=== PATIENT | female | born 1970 | race African-American/Black ===

== ENCOUNTER 2018-04-23 14:16 | Inpatient (IN) | payer OTHER ==
[~2018-04-23] VITALS: Ht 162.6 cm; Wt 52.2 kg
[~2018-04-23 14:16] MED LIST: IBUPROFEN600 MG ORAL; KEFLEX500 MG ORAL; NORCO 5-325 TA1 EACH ORAL; PREDNISONE10 MG ORAL
[2018-04-23 14:20] VITALS: BP 146/73
--- NOTE | 2018-04-23 14:20 | NUR ---
ED Nurse Note: PT WALKED IN TO ER TODAY FROM HOME. AOX4. PT C/O NAUSEA WITH MULTIPLE EPISODES OF VOMITING AND DIARRHEA X YESTERDAY. PT STATES VOMIT WAS YELLOW IN COLOR AND DIARRHEA WAS BLACK IN COLOR. PT ALSO C/O LOWER ABDOMINAL PAIN, 10/10 X YESTERDAY. PT TACHYCARDIC AT BEDSIDE, HR: 144, RR21@97% O2 SAT ON RA, TEMP 99.2. DR. PIÑA AT BEDSIDE FOR EVAL.
--- NOTE | 2018-04-23 14:28 | Emergency Room Report ---
History of Present Illness General Chief Complaint: Nausea, Vomiting, and Diarrhea Source: Patient, Medical Record Present Illness HPI 47-year-old female with a history of unspecified immunology disorder, she is on prednisone 5 mg a grams a day, presenting with generalized weakness, nausea vomiting. Says that she had nausea more than 5 episodes yesterday yellow in color. She also had a modified episodes of black diarrhea. Also complaining of generalized lower abdominal pain, crampy and sharp. Says that she does not feel well and she has not been able to eat for the last couple days. Says that she is a chronic alcohol user, she's not had an endoscopy or colonoscopy in the past. She is noted to have a runny nose. Denies any cough. No chest pain or shortness of breath. 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 Review of Systems All Other Systems: negative except mentioned in HPI Physical Exam Vital Signs Date Time Temp Pulse Resp B/P (MAP) Pulse Ox O2 Delivery O2 Flow Rate FiO2 04/23/18 14:19 99.1 144 21 149/76 97 Room Air Sp02 EP Interpretation: reviewed, normal General Appearance: alert, moderate distress Head: normocephalic, atraumatic Eyes: bilateral eye normal inspection, bilateral eye PERRL, bilateral eye EOMI ENT: no angioedema, normal voice, nasal congestion Neck: normal inspection, full range of motion, supple Respiratory: normal inspection, lungs clear, normal breath sounds, no respiratory distress, no retraction, no wheezing, speaking full sentences, chest symmetrical Cardiovascular #1: no edema, tachycardia Cardiovascular #2: 2+ radial (R), 2+ radial (L) Gastrointestinal: other - Generalized abdominal tenderness in the bilateral lower quadrants without guarding or rebound Rectal: black stool - GUIAC POSITIVE Musculoskeletal: normal inspection, back normal, normal range of motion, non- tender Neurologic: normal inspection, alert, oriented x3, responsive, motor strength/ tone normal, sensory intact, normal gait, speech normal Psychiatric: normal inspection, judgement/insight normal, memory normal Skin: normal inspection, normal color, no rash, warm/dry, well hydrated, normal turgor Procedures Critical Care Time Critical Care Time 40 minutes of critical care time performed in order to assess and manage the high probability of imminent of lifethreatening deterioration secondary to GI function excludes all billable procedures Medical Decision Making Diagnostic Impression: Primary Impression: GI bleed ER Course 47-year-old female with generalized weakness, nausea vomiting yesterday, black diarrhea Differential Diagnosis: Gastritis, gastroenteritis, GI bleed Plan: Basic labs, type and screen, ua, ekg IVF CT abdopelvis ER course: Patient given 2 L fluid put on octreotide/protonix Disposition: admit to SDU dw Dr Farah and Dr Cedeño Please note that this Emergency Department Report was dictated using [employer] mobile designer technology software, occasionally this can lead to erroneous entry secondary to interpretation by the dictation equipment EKG Diagnostic Results EP Interpretation: Yes Rate: Tachycardic Rhythm: NSR ST Segments: No acute changes ASA given to patient: No Rhythm Strip EP Interpretation: Yes Rate:130 Rhythm: NSR, no PVCs, no ectopy Chest X-ray CXR: Ordered: Yes 1 view Indication: Chest pain EP interpretation: Yes Interpretation: No consolidation, no effusion, no PTX, no acute cardiopulmonary disease Impression: No acute disease Electronically signed by Evelina Callahan MD Laboratory Tests Test 04/23/18 14:19 04/23/18 15:20 White Blood Count 15.9 K/UL (4.8-10.8) H Red Blood Count 3.02 M/UL (4.20-5.40) L Hemoglobin 9.8 G/DL (12.0-16.0) L Hematocrit 28.5 % (37.0-47.0) L Mean Corpuscular Volume 94 FL (80-99) Mean Corpuscular Hemoglobin 32.5 PG (27.0-31.0) H Mean Corpuscular Hemoglobin Concent 34.4 G/DL (32.0-36.0) Red Cell Distribution Width 11.0 % (11.6-14.8) L Platelet Count 322 K/UL (150-450) Mean Platelet Volume 7.3 FL (6.5-10.1) Neutrophils (%) (Auto) 59.1 % (45.0-75.0) Lymphocytes (%) (Auto) 32.8 % (20.0-45.0) Monocytes (%) (Auto) 6.8 % (1.0-10.0) Eosinophils (%) (Auto) 0.2 % (0.0-3.0) Basophils (%) (Auto) 1.0 % (0.0-2.0) Prothrombin Time 9.9 SEC (9.30-11.50) Prothrombin Time INR 0.9 (0.9-1.1) PTT 23 SEC (23-33) Urine Color Yellow Urine Appearance Slightly cloudy Urine pH 6 (4.5-8.0) Urine Specific [place] 1.005 (1.005-1.035) Urine Protein 1+ (NEGATIVE) H Urine Glucose (UA) Negative (NEGATIVE) Urine Ketones Negative (NEGATIVE) Urine Blood 5+ (NEGATIVE) H Urine Nitrite Negative (NEGATIVE) Urine Bilirubin Negative (NEGATIVE) Urine Urobilinogen Normal MG/DL (0.0-1.0) Urine Leukocyte Esterase 3+ (NEGATIVE) H Urine RBC 2-4 /HPF (0 - 2) H Urine WBC 2-4 /HPF (0 - 2) Urine Squamous Epithelial Cells Few /LPF (NONE/OCC) Urine Bacteria Few /HPF (NONE) Urine HCG, Qualitative Negative (NEGATIVE) Sodium Level 140 MMOL/L (136-145) Potassium Level 3.3 MMOL/L (3.5-5.1) L Chloride Level 105 MMOL/L (98-107) Carbon Dioxide Level 23 MMOL/L (21-32) Anion Gap 12 mmol/L (5-15) Blood Urea Nitrogen 30 mg/dL (7-18) H Creatinine 0.7 MG/DL (0.55-1.30) Estimate Glomerular Filtration Rate > 60 mL/min (>60) Glucose Level 140 MG/DL (74-106) H Calcium Level 9.1 MG/DL (8.5-10.1) Total Bilirubin 0.3 MG/DL (0.2-1.0) Aspartate Amino Transferase (AST) 21 U/L (15-37) Alanine Aminotransferase (ALT) 31 U/L (12-78) Alkaline Phosphatase 99 U/L (46-116) Total Creatine Kinase 77 U/L (26-308) Creatine Kinase MB 3.1 NG/ML (0.0-3.6) Creatine Kinase MB Relative Index 4.0 Troponin I 0.015 ng/mL (0.000-0.056) Total Protein 7.2 G/DL (6.4-8.2) Albumin 3.6 G/DL (3.4-5.0) Globulin 3.6 g/dL Albumin/Globulin Ratio 1.0 (1.0-2.7) Human Chorionic Gonadotropin, Quant 8 mIU/mL (1-6) H Urine Opiates Screen Negative (NEGATIVE) Urine Barbiturates Screen Negative (NEGATIVE) Phencyclidine (PCP) Screen Negative (NEGATIVE) Urine Amphetamines Screen Negative (NEGATIVE) Urine Benzodiazepines Screen Negative (NEGATIVE) Urine Cocaine Screen Negative (NEGATIVE) Urine Marijuana (THC) Screen Positive (NEGATIVE) H Serum Alcohol < 3 mg/dL Lactic Acid Level 1.00 mmol/L (0.4-2.0) Microbiology Date/Time Source Procedure Growth Status 04/23/18 16:00 Nasal Nares Influenza Types A,B Antigen (NOMAN) - Final Complete CT/MRI/US Diagnostic Results CT/MRI/US Diagnostic Results : Imaging Test Ordered: CT ABD PELVIS Impression Fatty liver. Normal appendix. Probable tiny cyst in the upper pole left kidney. Atherosclerotic disease. Uterine fibroid Last Vital Signs Date Time Temp Pulse Resp B/P (MAP) Pulse Ox O2 Delivery O2 Flow Rate FiO2 04/23/18 14:19 99.1 144 21 149/76 97 Room Air Evelina Callahan M.D. Apr 23, 2018 14:28
[2018-04-23] MEDS ORDERED: Isovue-300 100ml vial INJ PRN (14:30)
[2018-04-23 14:46] LABS: BILIRUBIN, URINE NEGATIVE (NEGATIVE); GLUCOSE, URINE (UA) NEGATIVE (NEGATIVE); KETONES,URINE NEGATIVE (NEGATIVE); LEUKOCYTE ESTERASE ,URINE 3+ (NEGATIVE); NITRITE,URINE NEGATIVE (NEGATIVE); PH,URINE 6 (4.5-8.0); PROTEIN,URINE 1+ (NEGATIVE); UROBILINOGEN,URINE NORMAL MG/DL (0.0-1.0)
[2018-04-23 14:47] LABS: EOSINOPHILS % (AUTO) 0.2 % (0.0-3.0); HEMATOCRIT 28.5 % (37.0-47.0); HEMOGLOBIN 9.8 G/DL (12.0-16.0); LYMPHOCYTES % (AUTO) 32.8 % (20.0-45.0); MEAN CORPUSCULAR VOLUME 94 FL (80-99); MONOCYTES % (AUTO) 6.8 % (1.0-10.0); NEUTROPHILS % (AUTO) 59.1 % (45.0-75.0); PLATELET COUNT 322 K/UL (150-450); RED BLOOD COUNT 3.02 M/UL (4.20-5.40); WHITE BLOOD COUNT 15.9 K/UL (4.8-10.8)
[2018-04-23 14:48] LABS: APPEARANCE,URINE SLIGHTLY CLOUDY; COLOR,URINE YELLOW
[2018-04-23] MEDS ORDERED: NORCO 10-325 T1 EACH ORAL (14:50)
[2018-04-23] MEDS ORDERED: IBUPROFEN600 MG ORAL (14:51)
[2018-04-23 14:57] LABS: INR 0.9 (0.9-1.1)
[2018-04-23 14:58] LABS: ANION GAP 12 mmol/L (5-15); BLOOD UREA NITROGEN 30 mg/dL (7-18); CALCIUM 9.1 MG/DL (8.5-10.1); CARBON DIOXIDE 23 MMOL/L (21-32); CHLORIDE 105 MMOL/L (98-107); CREATININE 0.7 MG/DL (0.55-1.30); POTASSIUM 3.3 MMOL/L (3.5-5.1); SODIUM 140 MMOL/L (136-145)
--- NOTE | 2018-04-23 15:06 | NUR ---
ED Nurse Note: XRAY AT BEDSIDE.
[2018-04-23 15:10] VITALS: BP 149/76
[2018-04-23 15:11] LABS: ALANINE AMINOTRANSFERASE 31 U/L (12-78); ALBUMIN 3.6 G/DL (3.4-5.0); ALKALINE PHOSPHATASE 99 U/L (46-116); ASPARTATE AMINO TRANSFERASE 21 U/L (15-37); BILIRUBIN,TOTAL 0.3 MG/DL (0.2-1.0); CKMB 3.1 NG/ML (0.0-3.6); CREATINE KINASE 77 U/L (26-308)
--- NOTE | 2018-04-23 15:21 | NUR ---
ED Nurse Note: PER LAB, DID NOT RECEIVE LACTIC. LACTIC ACID REDRAWN AND RESENT.
--- NOTE | 2018-04-23 15:54 | Diagnostic Imaging Report ---
Indication: Chest pain Comparison: None A single view chest radiograph was obtained. Findings: Cardiomediastinal appearance is within normal limits for age. The lungs are clear. Pulmonary vascularity is appropriate. The diaphragmatic contour is smooth and costophrenic angles are sharp. No pleural effusions are identified. The bones are osteopenic. Impression: No acute findings
--- NOTE | 2018-04-23 16:14 | NUR ---
ED Nurse Note: PT TO CT VIA ZACH.
[2018-04-23] MEDS ORDERED: Octreotide Acetate 500 MCG in Sodium Chloride 500ML 499 ML IV SCH (16:15)
[2018-04-23] MEDS ORDERED: Pantoprazole Inj IVP ONE (16:15)
--- NOTE | 2018-04-23 16:40 | NUR ---
ED Nurse Note: PT BACK FROM CT VIA ZACH.
--- NOTE | 2018-04-23 17:09 | Diagnostic Imaging Report ---
Indication: Abdominal pain Technique: Continuous helical transaxial imaging of the abdomen and pelvis was obtained from the lung bases to the pubic symphysis during intravenous contrast administration. Coronal 2-D reformats were also obtained. Study obtained in a Siemens sensation [address] Automatic Exposure Control was utilized. Total Dose length Product (DLP): 492.[address] Dose Index Volume (CTDIvol): 10.35 mGy Comparison: None Findings: The lung bases are clear. The liver is hypodense consistent with fatty infiltration. No hydronephrosis seen. There is a tiny cyst likely in the upper pole left kidney. Gallbladder is unremarkable. The spleen and pancreas are unremarkable. Aortoiliac calcifications are present. The appendix is normal. There is a small mass in the uterine fundus consistent with a fibroid. The urinary bladder is unremarkable. No significant free fluid identified. No evidence of bowel obstruction. IMPRESSION: Fatty liver. Normal appendix. Probable tiny cyst in the upper pole left kidney. Atherosclerotic disease. Uterine fibroid The CT scanner at [facility] is accredited by the [place] [employer] and the scans are performed using dose optimization techniques as appropriate to a performed exam including Automatic Exposure control.
--- NOTE | 2018-04-23 17:13 | NUR ---
ED Nurse Note: MARCELLE CALLED FOR PT TRANSFER. REPORT GIVEN TO ADRIEL RANGEL. PT TAKEN UP TO MARCELLE ON MARKET MASTER RUNNING IV MEDS WITH ALL BELONGINGS ACCOMPANIED BY PRIMARY RN AND EMT.
[2018-04-23 17:45] VITALS: BP 143/81
--- NOTE | 2018-04-23 17:45 | NUR ---
NURSE NOTES: Received patient from ADRIEL Johnson from ER. Patient came in for GI Bleed. Patient in bed, awake, and verbally responsive. quality assurance monitor body was in placed. On room air. No SOB. Respirations are even and unlaboured. Denies any pain. IV sites on left AC 20G running Sandostatin 500mg and right AC 20 G saline lock. Bed in lowest position with side rails up. Will continue to follow plan of care.
--- NOTE | 2018-04-23 18:45 | NUR ---
NURSE NOTES: Left a message to Dr. Farah to receive admission orders from him. Awaiting for call back.
[2018-04-23] MEDS ORDERED: Acetaminophen 500mg (ES) tab ORAL PRN ×2 (19:00)
--- NOTE | 2018-04-23 19:00 | NUR ---
NURSE NOTES: Dr. Farah called back and carried out orders.
--- NOTE | 2018-04-23 19:20 | NUR ---
NURSE NOTES: Left a message to Dr. Farah regarding about Potassium 3.3. Awaiting for call back. Will endorse to the PM nurse.
--- NOTE | 2018-04-23 19:25 | NUR ---
HAND-OFF: Report given to ADRIEL Aguero. Patient stable and in no apparent distress.
--- NOTE | 2018-04-23 19:26 | NUR ---
NURSE NOTES: Bedside report received patient from ADRIEL Fairchild. Patient came from home in for GI Bleed. AOx4, resting in bed, breathing unlabored. termite control servicer showing ST. Room air; sating well. Denies pain. IV sites on left AC 20G running Sandostatin 500mg; asymptomatic. RAC 20 saline lock. Bed in lowest position with side rails up. Will continue to follow plan of care.
[2018-04-23 20:00] VITALS: BP 128/76
--- NOTE | 2018-04-23 20:06 | NUR ---
NURSE NOTES: Received a call from Dr. Farah regarding K 3.3. Was told to call Tracey regarding K. Will follow out order and continue to monitor.
--- NOTE | 2018-04-23 22:15 | NUR ---
NURSE NOTES: Spoke with Dr. Webb regarding K 3.3; ordered 40 meq KCl once. Mentioned HR 115 sustained, as well as 140-150 episode, no sales representative rural power on case. Will contact Dr. Farah regarding HR. Will follow out orders and continue to monitor.
--- NOTE | 2018-04-23 22:17 | NUR ---
NURSE NOTES: Called and left a message for Dr. Farah regarding HR. 115-120 sustained, and episode of 140-150. Offered IV fluids, cardiology consult. Will continue to monitor and wait for call back.
--- NOTE | 2018-04-23 22:39 | NUR ---
NURSE NOTES: Spoke with Dr. Farah, order 1/2NS @ 55 ml/hr. Was told Dr. Patino is on the case. Called and left a message regarding HR. Will await call back, and continue to monitor.
--- NOTE | 2018-04-23 23:33 | NUR ---
NURSE NOTES: Spoke with Dr. Patino regarding tachycardia. Told him IV fluids were ordered, and is currently on sandostatin for GIB. No orders at this time d/t need for tx of underlying GIB cause. Will continue to monitor and follow plan of care.
--- NOTE | 2018-04-23 23:34 | Cardiology Progress Note ---
Assessment/Plan Assessment/Plan The patient is seen and examined, full consult note will be dictated soon. Objective Last 24 Hour Vital Signs Date Time Temp Pulse Resp B/P (MAP) Pulse Ox O2 Delivery O2 Flow Rate FiO2 04/23/18 20:00 97.7 110 20 128/76 (93) 100 04/23/18 20:00 Room Air 04/23/18 17:45 Room Air 04/23/18 17:45 98.2 111 20 143/81 (101) 96 04/23/18 17:38 111 04/23/18 17:13 98.7 136 21 105/58 100 Room Air 04/23/18 15:10 124 26 149/76 98 Room Air 04/23/18 14:20 98.8 142 22 146/73 98 Room Air 04/23/18 14:19 99.1 144 21 149/76 97 Room Air Laboratory Tests Test 04/23/18 14:19 04/23/18 15:20 White Blood Count 15.9 K/UL (4.8-10.8) H Red Blood Count 3.02 M/UL (4.20-5.40) L Hemoglobin 9.8 G/DL (12.0-16.0) L Hematocrit 28.5 % (37.0-47.0) L Mean Corpuscular Volume 94 FL (80-99) Mean Corpuscular Hemoglobin 32.5 PG (27.0-31.0) H Mean Corpuscular Hemoglobin Concent 34.4 G/DL (32.0-36.0) Red Cell Distribution Width 11.0 % (11.6-14.8) L Platelet Count 322 K/UL (150-450) Mean Platelet Volume 7.3 FL (6.5-10.1) Neutrophils (%) (Auto) 59.1 % (45.0-75.0) Lymphocytes (%) (Auto) 32.8 % (20.0-45.0) Monocytes (%) (Auto) 6.8 % (1.0-10.0) Eosinophils (%) (Auto) 0.2 % (0.0-3.0) Basophils (%) (Auto) 1.0 % (0.0-2.0) Prothrombin Time 9.9 SEC (9.30-11.50) Prothromb Time International Ratio 0.9 (0.9-1.1) Activated Partial Thromboplast Time 23 SEC (23-33) Urine Color Yellow Urine Appearance Slightly cloudy Urine pH 6 (4.5-8.0) Urine Specific [place] 1.005 (1.005-1.035) Urine Protein 1+ (NEGATIVE) H Urine Glucose (UA) Negative (NEGATIVE) Urine Ketones Negative (NEGATIVE) Urine Blood 5+ (NEGATIVE) H Urine Nitrite Negative (NEGATIVE) Urine Bilirubin Negative (NEGATIVE) Urine Urobilinogen Normal MG/DL (0.0-1.0) Urine Leukocyte Esterase 3+ (NEGATIVE) H Urine RBC 2-4 /HPF (0 - 2) H Urine WBC 2-4 /HPF (0 - 2) Urine Squamous Epithelial Cells Few /LPF (NONE/OCC) Urine Bacteria Few /HPF (NONE) Urine HCG, Qualitative Negative (NEGATIVE) Sodium Level 140 MMOL/L (136-145) Potassium Level 3.3 MMOL/L (3.5-5.1) L Chloride Level 105 MMOL/L (98-107) Carbon Dioxide Level 23 MMOL/L (21-32) Anion Gap 12 mmol/L (5-15) Blood Urea Nitrogen 30 mg/dL (7-18) H Creatinine 0.7 MG/DL (0.55-1.30) Estimat Glomerular Filtration Rate > 60 mL/min (>60) Glucose Level 140 MG/DL (74-106) H Calcium Level 9.1 MG/DL (8.5-10.1) Total Bilirubin 0.3 MG/DL (0.2-1.0) Aspartate Amino Transf (AST/SGOT) 21 U/L (15-37) Alanine Aminotransferase (ALT/SGPT) 31 U/L (12-78) Alkaline Phosphatase 99 U/L (46-116) Total Creatine Kinase 77 U/L (26-308) Creatine Kinase MB 3.1 NG/ML (0.0-3.6) Creatine Kinase MB Relative Index 4.0 Troponin I 0.015 ng/mL (0.000-0.056) Total Protein 7.2 G/DL (6.4-8.2) Albumin 3.6 G/DL (3.4-5.0) Globulin 3.6 g/dL Albumin/Globulin Ratio 1.0 (1.0-2.7) Human Chorionic Gonadotropin, Quant 8 mIU/mL (1-6) H Urine Opiates Screen Negative (NEGATIVE) Urine Barbiturates Screen Negative (NEGATIVE) Phencyclidine (PCP) Screen Negative (NEGATIVE) Urine Amphetamines Screen Negative (NEGATIVE) Urine Benzodiazepines Screen Negative (NEGATIVE) Urine Cocaine Screen Negative (NEGATIVE) Urine Marijuana (THC) Screen Positive (NEGATIVE) H Serum Alcohol < 3 mg/dL Lactic Acid Level 1.00 mmol/L (0.4-2.0) Microbiology Date/Time Source Procedure Growth Status 04/23/18 16:00 Nasal Nares Influenza Types A,B Antigen (NOMAN) - Final Complete Hernando Patino MD Apr 23, 2018 23:34
[2018-04-24] VITALS (9 sets, daily range): BP systolic 106–123; BP diastolic 60–81
--- NOTE | 2018-04-24 01:00 | Consultation ---
DATE OF CONSULTATION: 04/23/2018 CARDIOLOGY CONSULTATION CONSULTING PHYSICIAN: Hernando Patino M.D. REFERRING PHYSICIAN: Khadijah Farah M.D. REASON FOR CONSULTATION: Management of tachycardia. HISTORY OF PRESENT ILLNESS: The patient is a very unfortunate 47-year-old female, who was seen in [facility] emergency department at request of Dr. Farah for evaluation of tachycardia. She apparently has a history of unspecified immunological disorder on prednisone 5 mg p.o. daily, presents to the hospital with generalized weakness, nausea and vomiting, and black diarrhea. She also had generalized abdominal pain, which is described as crampy and sharp. She has not been able to eat for the last couple days. At the time of arrival to the hospital in the emergency department, blood pressure was 149/76 mmHg and heart rate was 144. A 12-lead electrocardiogram in the emergency department shows sinus tachycardia, rate of [address] and T-wave abnormalities. The patient is seen in Cardiology consultation at request of Dr. Farah for management of tachycardia. In the emergency department, the patient has been given two liters of fluid and was placed on drip. Protonix is also being given. She is planning to be going up to [facility]. PAST MEDICAL HISTORY: 1. Chronic alcoholism. 2. Immunological disorder. 3. Chronic inflammatory demyelinating polyneuropathy. 4. Cancer of mouth. PAST SURGICAL HISTORY: None. ALLERGIES: No known drug allergies. MEDICATIONS: List of medications, cephalexin 500 mg q.6 hours, [place] 10/325 one tablet twice daily p.r.n. pain, Motrin 800 mg twice daily, and prednisone 10 mg daily. FAMILY HISTORY: No premature coronary artery disease in first-degree relatives. SOCIAL HISTORY: There is no history of tobacco or illicit drug use, however, she is a chronic alcohol abuser. REVIEW OF SYSTEMS: A 12-system review done essentially negative except what is mentioned in the history of present illness. PHYSICAL EXAMINATION: VITAL SIGNS: Blood pressure was 149/76, pulse of 144, respirations 21, temperature 99.1 degrees Fahrenheit, and O2 saturation 97% on room air. GENERAL: The patient is a very unfortunate 47-year-old female, in mild respiratory distress. Alert and oriented x4. HEENT: Atraumatic and normocephalic. Anicteric. Pupils are equal, round, and reactive to light and accommodation. Extraocular muscles intact. NECK: JVP is less than 5 cm. No carotid bruits. Carotid upstrokes 2+ bilaterally. CARDIOVASCULAR: Normal S1, S2. Regular rate and rhythm. Tachycardic. No murmurs, gallops, or rubs. LUNGS: Clear to auscultation bilaterally. ABDOMEN: Some tenderness over the right and left lower quadrants. Positive guaiac per emergency doctor report. EXTREMITIES: No evidence of edema, clubbing, or cyanosis. LABORATORY AND DIAGNOSTIC DATA: Laboratory findings, WBC was 15.9, hemoglobin 9.8, hematocrit of 28.5%, and platelet count is 322. INR is 0.9. Sodium 140, potassium is 3.3, chloride 105, bicarbonate 23, BUN of 30, creatinine 0.7, glucose 140, and calcium is 9.1. Troponin I was 0.015. Albumin is 3.6. A urine toxicology screen is positive for marijuana. DIAGNOSTIC DATA: Chest x-ray showed no acute cardiopulmonary disease. ASSESSMENT AND PLAN: The patient is a very unfortunate 47-year-old lady, seen in the emergency department of [facility]. 1. Sinus tachycardia, this is due to combination of hypovolemia as the patient had intractable nausea and vomiting as well as black diarrhea with of bicarbonate as well as electrolytes and water loss all in all causing tachycardia. The treatment of sinus tachycardia is to increase intravascular volume by intravenous fluid administration ideally Ringer lactate or normal saline. No AV david agent is recommended at this time. We will obtain 2D echocardiography to assess LV systolic function in face of history of chronic alcoholism and to rule out cardiomyopathy. 2. Chronic alcoholism. 3. History of polyneuropathy. 4. History of Immunological disorder therapy. 5. High blood pressure readings. We will continue managing conservatively. I would like to thank, Dr. Farah, for allowing me to participate in the care of this patient. Hernando Patino M.D. DR: DARWIN JOB#: [id number] CC:
[2018-04-24] MEDS: Pantoprazole 80 MG in NS 250 ML IV SCH ×2 (01:19→11:22)
[2018-04-24 05:51] LABS: HEMATOCRIT 20.1 % (37.0-47.0); MEAN CORPUSCULAR VOLUME 95 FL (80-99); PLATELET COUNT 239 K/UL (150-450); RED BLOOD COUNT 2.11 M/UL (4.20-5.40); RED CELL DISTRIBUTION WIDTH 10.9 % (11.6-14.8); WHITE BLOOD COUNT 10.9 K/UL (4.8-10.8)
[2018-04-24 06:11] LABS: HEMOGLOBIN 6.8 G/DL (12.0-16.0)
[2018-04-24 06:30] LABS: ANION GAP 10 mmol/L (5-15); BLOOD UREA NITROGEN 14 mg/dL (7-18); CARBON DIOXIDE 22 MMOL/L (21-32); CHLORIDE 113 MMOL/L (98-107); CREATININE 0.5 MG/DL (0.55-1.30); POTASSIUM 3.7 MMOL/L (3.5-5.1); SODIUM 145 MMOL/L (136-145)
--- NOTE | 2018-04-24 06:32 | NUR ---
NURSE NOTES: Hgb 6.8, previously 9.8; left message for Dr. Farah. Awaiting call back.
--- NOTE | 2018-04-24 07:05 | NUR ---
NURSE NOTES: Spoke w/ Dr. Farah, was told to inform Faheem and Gala. Will follow out and continue to monitor.
--- NOTE | 2018-04-24 07:49 | NUR ---
NURSE NOTES: Spoke w/ Dr. Mayen. Orders to transfuse blood w/ set. Will follow out.
--- NOTE | 2018-04-24 07:49 | NUR ---
HAND-OFF: Report given to ADRIEL Fragoso. Pt stable, VSS, no s/s of acute distress.
--- NOTE | 2018-04-24 07:50 | NUR ---
NURSE NOTES: RECEIVED PATIENT FROM Italia KWON RN. PATIENT IS LYING IN BED, AWAKE ALERT AND ORIENTED. HOOKED TO CARDAIC MONITOR. ON ROOM AIR. NO SIGNS OF CARDIO OR RESPI DISTRESS OF THE MOMENT. KEPT ON NPO FOR SCHEDULED EGD TODAY. SHE CAN AMBULATE BY HERSELF. GOES TO THE RESTROOM. IVS ON L AND R AC G20, PATENT AND FLUSHES WELL. IVF RUNNING 1/2 NS AT 55CC/HR AND ON PROTONIX DRIP AT 25CC/HR. NO SIGNS OF BLEEDING. CALL LIGHT WITHIN REACH. BED AT LOWEST POSITION. SIDE RAILS UP. WILL CONTINUE TO MONITOR.
--- NOTE | 2018-04-24 08:00 | NUR ---
NURSE NOTES: MD MADE AWARE OF HGB LEVEL. GOT AN ORDER FOR BLOOD TRANSFUSION. WILL CONTINUE TO MONITOR.
--- NOTE | 2018-04-24 11:31 | NUR ---
NURSE NOTES: TOLERATING BLOOD TRANSFUSION. NO SIGN SOF DISTRESS. WILL CONTINUE TO MONITOR.
--- NOTE | 2018-04-24 11:40 | NUR ---
NURSE NOTES: WHEELED PATIENT DOWN TO GI LAB. REPORT GIVEN TO ADRIEL DUARTE. PATIENT IS STABLE. BELONGINGS WITH THE PATIENT. STILL ON BLOOD TRANSFUSION. NO SIGNS OF DISTRESS. WILL CONTINUE TO MONITOR. Addendum: 04/24/18 at 1254 by MARSHAL LOFTON RN NURSE NOTES: WRONG TIME
--- NOTE | 2018-04-24 12:04 | Pre-Procedure Note/Attestation ---
Pre-Procedure Note/Attestation Complete Prior to Procedure Planned Procedure: not applicable Procedure Narrative: egd Indications for Procedure Pre-Operative Diagnosis: gib Attestation I attest that I discussed the nature of the procedure; its benefits; risks and complications; and alternatives (and the risks and benefits of such alternatives ), prior to the procedure, with the patient (or the patient's legal sales representative graphic art). I attest that, if there was a reasonable possibility of needing a blood transfusion, the patient (or the patient's legal sales representative graphic art) was given the [facility] standardized written summary, pursuant to the Ariel Thaddeus Blood Safety Act ([place] Health and Safety Code # 1645, as amended). I attest that I re-evaluated the patient just prior to the surgery and that there has been no change in the patient's H&P, except as documented below: Conrad Cedeño MD Apr 24, 2018 12:04
--- NOTE | 2018-04-24 12:10 | GI Initial Consult Note ---
History of Present Illness General Date patient seen: Apr 24, 2018 Time patient seen: 12:06 Reason for Hospitalization: Nausea, Vomiting, and Diarrhea Referring physician: SHAHZAD CARREON Reason for Consultation: GI BLEED Present Illness HPI 47-year-old female with a history of unspecified immunology disorder, she is on prednisone 5 mg a grams a day, presenting with generalized weakness, nausea vomiting. Says that she had nausea more than 5 episodes yesterday yellow in color. She also had a modified episodes of black diarrhea. Also complaining of generalized lower abdominal pain, crampy and sharp. Says that she does not feel well and she has not been able to eat for the last couple days. Says that she is a chronic alcohol user, she's not had an endoscopy or colonoscopy in the past. She is noted to have a runny nose. Denies any cough. No chest pain or shortness of breath. Denies any other drug use aside from alcohol GI consulted for GI bleed. Initial HPI noted above. Patient currently being transfused with 2 units. NAD with no active s/sx of N/V/D. No endoscopy history. Presents with severe anemia and leukocytosis. Home Meds Discontinued Reported Medications Ibuprofen* (MOTRIN*) 600 Mg Tablet, 800 MG ORAL BID, #30 TAB 0 Refills 04/23/18 Hydrocodone Bit/Acetaminophen 10-325* (NORCO 10-325*) 1 Each Tablet, 1 TAB ORAL BID PRN for For Pain, #10 TAB 0 Refills PRN PAIN 04/23/18 Prednisone* (PREDNISONE*) 10 Mg Tablet, 10 MG ORAL DAILY, #10 TAB 0 Refills 12/03/15 Discontinued Scripts Cephalexin* (KEFLEX*) 500 Mg Capsule, 500 MG ORAL Q6H, #28 CAP Prov:Jacque Stringer DO 12/03/15 Med list reviewed/reconciled: Yes Allergies: Coded Allergies: No Known Allergies (Unverified , 01/11/13) Patient History Limited by: medical condition History Provided By: Patient, Medical Record PMH Narrative Past Medical History: see triage record Past Surgical History: none Pertinent Family History: none Social History: Reports: alcohol use Now: No Reviewed Nursing Documentation: PMH: Agreed; PSxH: Agreed Nursing Documentation-PMH Hx Cardiac Problems: No - 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 Social History: Reports: alcohol use Review of Systems All Other Systems: negative except mentioned in HPI Physical Exam Vital Signs Date Time Temp Pulse Resp B/P (MAP) Pulse Ox O2 Delivery O2 Flow Rate FiO2 04/23/18 14:19 99.1 144 21 149/76 97 Room Air Sp02 EP Interpretation: reviewed, normal Labs Laboratory Tests Test 04/23/18 14:19 04/23/18 15:20 04/24/18 03:20 White Blood Count 15.9 K/UL (4.8-10.8) H 10.9 K/UL (4.8-10.8) H Red Blood Count 3.02 M/UL (4.20-5.40) L 2.11 M/UL (4.20-5.40) L Hemoglobin 9.8 G/DL (12.0-16.0) L 6.8 G/DL (12.0-16.0) Hematocrit 28.5 % (37.0-47.0) L 20.1 % (37.0-47.0) L Mean Corpuscular Volume 94 FL (80-99) 95 FL (80-99) Mean Corpuscular Hemoglobin 32.5 PG (27.0-31.0) H 32.1 PG (27.0-31.0) H Mean Corpuscular Hemoglobin Concent 34.4 G/DL (32.0-36.0) 33.8 G/DL (32.0-36.0) Red Cell Distribution Width 11.0 % (11.6-14.8) L 10.9 % (11.6-14.8) L Platelet Count 322 K/UL (150-450) 239 K/UL (150-450) Mean Platelet Volume 7.3 FL (6.5-10.1) 6.2 FL (6.5-10.1) L Neutrophils (%) (Auto) 59.1 % (45.0-75.0) % (45.0-75.0) Lymphocytes (%) (Auto) 32.8 % (20.0-45.0) % (20.0-45.0) Monocytes (%) (Auto) 6.8 % (1.0-10.0) % (1.0-10.0) Eosinophils (%) (Auto) 0.2 % (0.0-3.0) % (0.0-3.0) Basophils (%) (Auto) 1.0 % (0.0-2.0) % (0.0-2.0) Prothrombin Time 9.9 SEC (9.30-11.50) 10.1 SEC (9.30-11.50) Prothromb Time International Ratio 0.9 (0.9-1.1) 1.0 (0.9-1.1) Activated Partial Thromboplast Time 23 SEC (23-33) 24 SEC (23-33) Urine Color Yellow Urine Appearance Slightly cloudy Urine pH 6 (4.5-8.0) Urine Specific [place] 1.005 (1.005-1.035) Urine Protein 1+ (NEGATIVE) H Urine Glucose (UA) Negative (NEGATIVE) Urine Ketones Negative (NEGATIVE) Urine Blood 5+ (NEGATIVE) H Urine Nitrite Negative (NEGATIVE) Urine Bilirubin Negative (NEGATIVE) Urine Urobilinogen Normal MG/DL (0.0-1.0) Urine Leukocyte Esterase 3+ (NEGATIVE) H Urine RBC 2-4 /HPF (0 - 2) H Urine WBC 2-4 /HPF (0 - 2) Urine Squamous Epithelial Cells Few /LPF (NONE/OCC) Urine Bacteria Few /HPF (NONE) Urine HCG, Qualitative Negative (NEGATIVE) Sodium Level 140 MMOL/L (136-145) 145 MMOL/L (136-145) Potassium Level 3.3 MMOL/L (3.5-5.1) L 3.7 MMOL/L (3.5-5.1) Chloride Level 105 MMOL/L (98-107) 113 MMOL/L (98-107) H Carbon Dioxide Level 23 MMOL/L (21-32) 22 MMOL/L (21-32) Anion Gap 12 mmol/L (5-15) 10 mmol/L (5-15) Blood Urea Nitrogen 30 mg/dL (7-18) H 14 mg/dL (7-18) Creatinine 0.7 MG/DL (0.55-1.30) 0.5 MG/DL (0.55-1.30) L Estimat Glomerular Filtration Rate > 60 mL/min (>60) > 60 mL/min (>60) Glucose Level 140 MG/DL (74-106) H 90 MG/DL (74-106) Calcium Level 9.1 MG/DL (8.5-10.1) 8.0 MG/DL (8.5-10.1) L Total Bilirubin 0.3 MG/DL (0.2-1.0) Aspartate Amino Transf (AST/SGOT) 21 U/L (15-37) Alanine Aminotransferase (ALT/SGPT) 31 U/L (12-78) Alkaline Phosphatase 99 U/L (46-116) Total Creatine Kinase 77 U/L (26-308) Creatine Kinase MB 3.1 NG/ML (0.0-3.6) Creatine Kinase MB Relative Index 4.0 Troponin I 0.015 ng/mL (0.000-0.056) Total Protein 7.2 G/DL (6.4-8.2) Albumin 3.6 G/DL (3.4-5.0) Globulin 3.6 g/dL Albumin/Globulin Ratio 1.0 (1.0-2.7) Human Chorionic Gonadotropin, Quant 8 mIU/mL (1-6) H Urine Opiates Screen Negative (NEGATIVE) Urine Barbiturates Screen Negative (NEGATIVE) Phencyclidine (PCP) Screen Negative (NEGATIVE) Urine Amphetamines Screen Negative (NEGATIVE) Urine Benzodiazepines Screen Negative (NEGATIVE) Urine Cocaine Screen Negative (NEGATIVE) Urine Marijuana (THC) Screen Positive (NEGATIVE) H Serum Alcohol < 3 mg/dL Lactic Acid Level 1.00 mmol/L (0.4-2.0) Differential Total Cells Counted 100 Neutrophils % (Manual) 63 % (45-75) Lymphocytes % (Manual) 26 % (20-45) Monocytes % (Manual) 7 % (1-10) Eosinophils % (Manual) 1 % (0-3) Basophils % (Manual) 1 % (0-2) Band Neutrophils 2 % (0-8) Platelet Estimate Adequate Platelet Morphology Normal Hypochromasia 1+ General Appearance: well appearing, no apparent distress, alert Head: normocephalic EENT: PERRL/EOMI, normal ENT inspection Neck: supple Respiratory: normal breath sounds, no respiratory distress Cardiovascular: normal rate Gastrointestinal: normal inspection, non tender, soft, normal bowel sounds, non -distended Rectal: deferred Genitourinary: no CVA tenderness Musculoskeletal: normal inspection, back normal Neurologic: normal inspection, alert, oriented x3, responsive Psychiatric: normal inspection, judgement/insight normal, memory normal Skin: normal inspection, normal color, no rash, warm/dry, palpation normal, well hydrated Lymphatic: normal inspection, no adenopathy Current Medications Current Medications Medications (Trade) Dose Ordered Sig/Marisol Route PRN Reason Start Time Stop Time Status Last Admin Dose Admin Acetaminophen (Tylenol) 500 mg Q4H PRN ORAL FEVER 04/23/18 19:00 05/23/18 18:59 Acetaminophen (Tylenol) 500 mg Q4H PRN ORAL Mild Pain (Pain Scale 1-3) 04/23/18 19:00 05/23/18 18:59 Dextrose (Dextrose 50%) 25 ml Q30M PRN IV Hypoglycemia 04/23/18 19:00 05/23/18 18:59 Dextrose (Dextrose 50%) 50 ml Q30M PRN IV Hypoglycemia 04/23/18 19:00 05/23/18 18:59 Pantoprazole 80 mg/Sodium Chloride 250 ml @ 25 mls/hr Q10H IV 04/24/18 01:00 05/24/18 00:59 04/24/18 11:22 Sodium Chloride 1,000 ml @ 55 mls/hr [id number] IV 04/23/18 23:00 05/23/18 22:59 04/23/18 22:58 GI: Plan Problems: (1) Varices, esophageal (2) PUD (peptic ulcer disease) (3) Gastric ulcer (4) GI bleed (5) Laceration Plan Patient scheduled for EGD today. maintain NPO + IVFs ppt gtt octreotide gtt prn transfusions will follow with additional recommendations post procedure Discussed with Dr. Cedeño. Thank you for this patient referral, we will follow. The patient was seen and examined at bedside and all new and available data was reviewed in the patients chart. I agree with the above findings, impression and plan. (Patient seen earlier today. Signature stamp does not reflect patient encounter time.). - MD Lucille Hartman [employer] Apr 24, 2018 12:10
--- NOTE | 2018-04-24 12:24 | Anethesia Preoperative Eval ---
Anesthesia Pre-op PMH/ROS General Date of Evaluation: Apr 24, 2018 Time of Evaluation: 12:40 Anesthesiologist: Lexi ASA Score: ASA 2 Mallampati Score Class I : Soft palate, uvula, fauces, pillars visible Class II: Soft palate, uvula, fauces visible Class III: Soft palate, base of uvula visible Class IV: Only hard plate visible Mallampati Classification: Class III Surgeon: Gala Diagnosis: Gi bleed Surgical Procedure: EGD Anesthesia History: none Social History: smoking, current smoker - marijuana, cigarettes smokes daily , alcohol use - 5 cans of beer daily Family History: no anesthesia problems Allergies: Coded Allergies: No Known Allergies (Unverified , 01/11/13) Medications: see eMAR Patient NPO?: Yes NPO Date: Apr 23, 2018 NPO Time: 20:00 Past Medical History Cardiovascular: Denies: HTN, CAD, [place], valve dz, arrhythmia, other Pulmonary: Denies: asthma, COPD, HANNA, other Gastrointestinal/Genitourinary: Reports: GERD, other - esophagel varices, gastric ulcers, Neurologic/Psychiatric: Reports: depression/anxiety, other - demylenating plyneuropathy , contusion of face and ribs Hematology/Immune: Reports: anemia Musculoskeletal/Integumentary: Reports: other - muscle weakness Anesthesia Pre-op Phys. Exam Physician Exam Last Vital Signs Date Time Temp Pulse Resp B/P (MAP) Pulse Ox O2 Delivery O2 Flow Rate FiO2 04/24/18 08:00 Room Air 04/24/18 08:00 92 04/24/18 08:00 98.9 19 122/74 (90) 99 Constitutional: NAD Neurologic: CN 2-12 intact Cardiovascular: RRR Respiratory: CTA Gastrointestinal: S/NT/ND Airway Exam Mallampati Score: Class III MO: full ROM: full Teeth: intact Dentures: no upper, no lower Anesthesia Pre-op A/P Labs Hematology Test 04/23/18 14:19 04/24/18 03:20 White Blood Count 15.9 K/UL (4.8-10.8) H 10.9 K/UL (4.8-10.8) H Red Blood Count 3.02 M/UL (4.20-5.40) L 2.11 M/UL (4.20-5.40) L Hemoglobin 9.8 G/DL (12.0-16.0) L 6.8 G/DL (12.0-16.0) Hematocrit 28.5 % (37.0-47.0) L 20.1 % (37.0-47.0) L Mean Corpuscular Volume 94 FL (80-99) 95 FL (80-99) Mean Corpuscular Hemoglobin 32.5 PG (27.0-31.0) H 32.1 PG (27.0-31.0) H Mean Corpuscular Hemoglobin Concent 34.4 G/DL (32.0-36.0) 33.8 G/DL (32.0-36.0) Red Cell Distribution Width 11.0 % (11.6-14.8) L 10.9 % (11.6-14.8) L Platelet Count 322 K/UL (150-450) 239 K/UL (150-450) Mean Platelet Volume 7.3 FL (6.5-10.1) 6.2 FL (6.5-10.1) L Neutrophils (%) (Auto) 59.1 % (45.0-75.0) % (45.0-75.0) Lymphocytes (%) (Auto) 32.8 % (20.0-45.0) % (20.0-45.0) Monocytes (%) (Auto) 6.8 % (1.0-10.0) % (1.0-10.0) Eosinophils (%) (Auto) 0.2 % (0.0-3.0) % (0.0-3.0) Basophils (%) (Auto) 1.0 % (0.0-2.0) % (0.0-2.0) Differential Total Cells Counted 100 Neutrophils % (Manual) 63 % (45-75) Lymphocytes % (Manual) 26 % (20-45) Monocytes % (Manual) 7 % (1-10) Eosinophils % (Manual) 1 % (0-3) Basophils % (Manual) 1 % (0-2) Band Neutrophils 2 % (0-8) Platelet Estimate Adequate Platelet Morphology Normal Hypochromasia 1+ Coagulation Test 04/23/18 14:19 04/24/18 03:20 Prothrombin Time 9.9 SEC (9.30-11.50) 10.1 SEC (9.30-11.50) Prothromb Time International Ratio 0.9 (0.9-1.1) 1.0 (0.9-1.1) Activated Partial Thromboplast Time 23 SEC (23-33) 24 SEC (23-33) Chemistry Test 04/23/18 14:19 04/23/18 15:20 04/24/18 03:20 Sodium Level 140 MMOL/L (136-145) 145 MMOL/L (136-145) Potassium Level 3.3 MMOL/L (3.5-5.1) L 3.7 MMOL/L (3.5-5.1) Chloride Level 105 MMOL/L (98-107) 113 MMOL/L (98-107) H Carbon Dioxide Level 23 MMOL/L (21-32) 22 MMOL/L (21-32) Anion Gap 12 mmol/L (5-15) 10 mmol/L (5-15) Blood Urea Nitrogen 30 mg/dL (7-18) H 14 mg/dL (7-18) Creatinine 0.7 MG/DL (0.55-1.30) 0.5 MG/DL (0.55-1.30) L Estimat Glomerular Filtration Rate > 60 mL/min (>60) > 60 mL/min (>60) Glucose Level 140 MG/DL (74-106) H 90 MG/DL (74-106) Calcium Level 9.1 MG/DL (8.5-10.1) 8.0 MG/DL (8.5-10.1) L Total Bilirubin 0.3 MG/DL (0.2-1.0) Aspartate Amino Transf (AST/SGOT) 21 U/L (15-37) Alanine Aminotransferase (ALT/SGPT) 31 U/L (12-78) Alkaline Phosphatase 99 U/L (46-116) Total Creatine Kinase 77 U/L (26-308) Creatine Kinase MB 3.1 NG/ML (0.0-3.6) Creatine Kinase MB Relative Index 4.0 Troponin I 0.015 ng/mL (0.000-0.056) Total Protein 7.2 G/DL (6.4-8.2) Albumin 3.6 G/DL (3.4-5.0) Globulin 3.6 g/dL Albumin/Globulin Ratio 1.0 (1.0-2.7) Human Chorionic Gonadotropin, Quant 8 mIU/mL (1-6) H Lactic Acid Level 1.00 mmol/L (0.4-2.0) Urine Test Test 04/23/18 14:19 Urine HCG, Qualitative Negative (NEGATIVE) Risk Assessment & Plan Assessment: A&Ox4, emotional and crying and anxious Plan: MAC Status Change Before Surgery: No Pre-Antibiotics Given Within 1 Hr of Incision: No Chanda Elliott CRNA Apr 24, 2018 12:24
[2018-04-24] MEDS ORDERED: Midazolam 2mg/2ml Inj ONE (12:30)
[2018-04-24] MEDS ORDERED: Propofol 200mg/20ml IV ONE (12:30)
[2018-04-24] MEDS ORDERED: Lidocaine 1% MPF 10mg/ml 5ml ONE (12:30)
--- NOTE | 2018-04-24 12:40 | NUR ---
NURSE NOTES: WHEELED PATIENT DOWN TO GI LAB. REPORT GIVEN TO ADRIEL DUARTE. PATIENT IS STABLE. BELONGINGS WITH THE PATIENT. STILL ON BLOOD TRANSFUSION. NO SIGNS OF DISTRESS. WILL CONTINUE TO MONITOR.
[2018-04-24] MEDS ORDERED: NS 500ML IVPB ONE (12:50)
--- NOTE | 2018-04-24 13:02 | Endoscopy Procedure Note ---
Endoscopy Procedure Note General Indication for Procedure: gib Procedures Performed: EGD Operative Findings/Diagnosis: gastritis Specimen: yes Pt Tolerated Procedure Well: Yes Estimated Blood Loss: none Anesthesia Anesthesiologist: pepe Anesthesia: MAC Inserted Devices Implant(s) used?: No GI Core Measures 50 yrs or older w/o bx or poly: Not Applicable 10yrs. F/U not recommended: Not Applicable Conrad Cedeño MD Apr 24, 2018 13:02
--- NOTE | 2018-04-24 13:28 | Immediate Post-Op Evaluation ---
Immediate Post-Op Evalulation Immediate Post-Op Evalulation Procedure: EGD Date of Evaluation: Apr 24, 2018 Time of Evaluation: 13:27 IV Fluids: NSS 250 ml Blood Products: 1 unit PRBC going at 100 ml/hr Estimated Blood Loss: 0 Urinary Output: 0 Blood Pressure Systolic: 123 Blood Pressure Diastolic: 78 Pulse Rate: 99 Respiratory Rate: 19 O2 Sat by Pulse Oximetry: 100 Temperature (Fahrenheit): 98.2 Pain Score (1-10): 0 Nausea: No Vomiting: No Complications none noted Patient Status: awake, reacts Hydration Status: adequate Given Within 1 Hr of Incision: Chanda Santacruz CRNA Apr 24, 2018 13:28
--- NOTE | 2018-04-24 13:34 | 48 Hour Post Anesthesia Eval ---
Post Anesthesia Evaluation Procedure: EGD Date of Evaluation: Apr 24, 2018 Time of Evaluation: 13:33 Blood Pressure Systolic: 120 0: 78 Pulse Rate: 100 Respiratory Rate: 18 Temperature (Fahrenheit): 98.2 O2 Sat by Pulse Oximetry: 100 Airway: patent Nausea: No Vomiting: No Pain Intensity: 0 Hydration Status: adequate Mental Status/LOC: patient returned to baseline Follow-up care needed: patient intructions given Chanda Elliott CRNA Apr 24, 2018 13:34
--- NOTE | 2018-04-24 13:47 | NUR ---
CASE MANAGEMENT: REVIEW 47/F BIBA FROM HOME CC: NAUSEA . VOMITING . DIARRHEA SI: GI BLEED T 99.1 HR 144 RR 26 BP 149/76 SAT 97% ROOM AIR WBC 15.9 H/H 9.8/28.5 K 3.3 IS: NS IVF BOLUS X1 PEPCID IV X1 OCTREOTIDE IV X1 PROTONIX IV X1 INTERQUAL CRITERIA MET: PATIENT ADMITTED TO STEP DOWN UNIT 04/23/2018 DCP: PATIENT IS FROM HOME CASE MANAGEMENT: REVIEW SI: GI BLEED T 98.5 HR 103 RR 22 BP 121/80 SAT 100% NC/3L H/H 6.8/20.1 IS: PROTONIX GTT NS IVF @ 55ML/HR K-DUR 10mEq PO X1 TRANSFUSION PRBC STEP DOWN UNIT STATUS DCP: PATIENT IS FROM HOME
[2018-04-24] MEDS ORDERED: 1/2 NS 1000ml IV ONE (14:50)
[2018-04-24] MEDS ORDERED: Tubing Blood Filter IV ONE (14:50)
[2018-04-24] MEDS ORDERED: NS 275ml ONE (14:50)
[2018-04-24] MEDS ORDERED: Tubing IV Secondary IV ONE (14:50)
--- NOTE | 2018-04-24 15:25 | NUR ---
TRANSFER TO FLOOR: Patient transferred to [facility] per camila. Report given to ADRIEL Yuen. Belongings with the patient. seen at the bedside. Still on 2nd unit of blood transfusion, tolerating BT. VSS.
--- NOTE | 2018-04-24 15:28 | NUR ---
NURSE NOTES: pt awake alert,no sob. no c/o pain. no report of bloody stool today, per pt no bm since 2 days ago. call light within reach. ivf and blood transfusing. will monitor.
--- NOTE | 2018-04-24 15:55 | Cardiology Report ---
APPROVED REPORT EXAM: Two-dimensional and M-mode echocardiogram with Doppler and color Doppler. INDICATION Tachycardia M-Mode DIMENSIONS IVSd1.2 (0.7-1.1cm)Left Atrium (MM)2.1 (1.6-4.0cm) LVDd4.8 (3.5-5.6cm)Aortic Root2.6 (2.0-3.7cm) PWd1.1 (0.7-1.1cm)Aortic Cusp Exc.2.0 (1.5-2.0cm) LVDs3.3 (2.5-4.0cm) PWs1.7 cm Normal left ventricular chamber size, systolic function and wall motion. Left ventricular ejection fraction estimated to be 65 %. No evidence of left ventricular hypertrophy. No evidence of pericardial effusion. All other cardiac chamber sizes are within normal limits. Mild focal aortic valve sclerosis with adequate cusp excursion. Mildly thickened mitral valve leaflets with normal excursion. Mild mitral annulus and aortic root calcification. Normal pulmonic valve structure. Normal tricuspid valve structure. IVC at normal size with physiologic collapse. A color flow and spectral Doppler study was performed and revealed: Trace mitral regurgitation. Mitral diastolic velocities suggest reduced left ventricular relaxation c/w mild LV diastolic dysfunction (Grade I). Trace tricuspid regurgitation. Tricuspid systolic velocities suggests peak right ventricular systolic pressure of 11 mmHg.
--- NOTE | 2018-04-24 16:16 | Cardiology Report ---
APPROVED REPORT EKG Measurement Heart [id number] Sinus tachycardia Right atrial enlargement Rightward axis Pulmonary disease pattern Nonspecific ST and T wave abnormality Abnormal ECG
--- NOTE | 2018-04-24 16:45 | Procedure Note ---
DATE OF PROCEDURE: 04/24/2018 SURGEON: Conrad Cedeño M.D. ANESTHESIA: Per Lexi ALSTON. PROCEDURE: Upper endoscopy with biopsy. INSTRUMENT: Olympus upper endoscope. INDICATION: Upper GI bleeding. REASON FOR PROCEDURE: The procedure, risks, benefits, and possible consequences, including hemorrhage, aspiration, perforation and infection, and alternative treatments, were explained to the patient/legal guardian by Dr. Conrad Cedeño and the patient/legal guardian understood and accepted these risks. DESCRIPTION OF PROCEDURE: After informed consent was obtained and and the patient was adequately sedated, Olympus upper endoscope was advanced from the mouth to the second portion of the duodenum and retroflexion performed in the stomach. The patient has no evidence of any esophagitis. No esophageal varices. No gastric varices. In the stomach, there was diffuse gastritis. Random biopsy from antrum was obtained to rule out H. pylori infection. There is no evidence of any active upper GI bleeding. There is a lesion along the lesser curvature of the gastric wall midbody. If the patient had a G-tube in the past, I would say that was a G-tube insertion site, but the site seems to be a little bit raised. No active bleeding. No ulcerations of unknown significance. At this time, the upper endoscope was retrieved and procedure was terminated. SUMMARY OF FINDINGS: 1. Gastritis, status post biopsy. 2. No evidence of any active upper GI bleeding. 3. Small lesion in the lesser curvature of unknown significance. See above for details. RECOMMENDATIONS: 1. Follow up biopsy results and treat accordingly. 2. Resume diet. 3. Monitor hemoglobin and hematocrit. Transfuse as needed. 4. Change to PPI two daily. I want to thank, Dr. Khadijah Farah, for this kind referral. Conrad Cedeño M.D. DR: KVNG JOB#: [id number] CC: Khadijah Farah M.D.; Fax#: [phone]
[2018-04-24] MEDS ORDERED: Acetaminophen 500mg (ES) tab ORAL PRN ×2 (19:00)
[2018-04-24 19:18] LABS: BILIRUBIN,DIRECT 0.1 MG/DL (0.0-0.3); BILIRUBIN,TOTAL 0.5 MG/DL (0.2-1.0); FERRITIN 48 NG/ML (8-388); LACTATE DEHYDROGENASE 159 U/L (81-234)
--- NOTE | 2018-04-24 19:20 | NUR ---
HAND-OFF: Report given to DEVEN MOREL.
--- NOTE | 2018-04-24 19:26 | NUR ---
NURSE NOTES: Received report from ADRIEL Yuen. Patient is asleep lying supine; resting comfortably. Arousable to verbal and tactile stimuli. No signs of acute distress noted; denies pain at this time. AOx4; able to make needs known. Ambulates independently. Checked IV site, lines, and IV rate; patent and running. No erythema, bleeding, or infiltration noted. Bed at lowest position, brakes on, siderails up x3. Call light within reach. Will continue to monitor.
[2018-04-24 19:33] LABS: IRON 194 ug/dL (50-175); TOTAL IRON BINDING CAPACITY 264 ug/dL (250-450)
[2018-04-24 19:34] LABS: % IRON SATURATION 73 % (15-50)
[2018-04-24] MEDS ORDERED: Pantoprazole 80 MG in NS 250 ML IV SCH ×3 (20:00)
--- NOTE | 2018-04-24 21:24 | NUR ---
NURSE NOTES: Called Dr. Farah regarding patient's sister's insistence to take the patient downstairs to "get some fresh air" and that patient is also accompanied by hospital staff for safety. Awaiting callback for any further orders. Addendum: 04/24/18 at 2140 by MAGALIE CARVALHO RN RN Additionally asked if patient can have a sleeping pill per patient's request.
--- NOTE | 2018-04-24 21:40 | NUR ---
NURSE NOTES: Received order from Dr. Farah not to let patient go outside. Noted and carried out.
--- NOTE | 2018-04-24 21:47 | NUR ---
NURSE NOTES: Received call from Dr. Farah to call Dr. Mcdonnell regarding patient's request for sleeping pill. Noted and carried out.
--- NOTE | 2018-04-24 22:00 | Consultation ---
History of Present Illness General Chief Complaint: Nausea, Vomiting, and Diarrhea Referring physician: KHADIJAH FARAH Reason for Consultation: GI BLEED Present Illness Allergies: Coded Allergies: No Known Allergies (Unverified , 01/11/13) Medication History Discontinued Medications Cephalexin* (Keflex*), 500 MG ORAL Q6H Discontinued Reason: MD discontinued med Hydrocodone Bit/Acetaminophen 10-325* ([place] 10-325*), 1 TAB ORAL BID PRN for For Pain, (Reported) Discontinued Reason: MD discontinued med Ibuprofen* (Motrin*), 800 MG ORAL BID, (Reported) Discontinued Reason: MD discontinued med Prednisone* (Prednisone*), 10 MG ORAL DAILY, (Reported) Discontinued Reason: MD discontinued med Patient History Healthcare decision maker Leyla Coppola Resuscitation status Full Code Advanced Directive on File Physical Exam Last 24 Hour Vital Signs Date Time Temp Pulse Resp B/P (MAP) Pulse Ox O2 Delivery O2 Flow Rate FiO2 04/24/18 19:17 98.3 04/24/18 18:44 98.3 04/24/18 16:22 99.0 101 18 119/69 (86) 100 04/24/18 16:00 Room Air 04/24/18 15:31 113 04/24/18 13:34 100 18 100 04/24/18 13:28 99 19 100 04/24/18 13:27 98.0 96 18 120/69 100 Nasal Cannula 3 04/24/18 13:20 103 21 121/80 100 Nasal Cannula 3 04/24/18 13:20 98 20 122/60 100 Nasal Cannula 3 04/24/18 13:15 98.5 101 19 123/78 100 Nasal Cannula 3 04/24/18 12:00 Room Air 04/24/18 12:00 97.8 95 22 122/74 (90) 100 04/24/18 12:00 95 04/24/18 08:00 Room Air 04/24/18 08:00 92 04/24/18 08:00 98.9 92 19 122/74 (90) 99 04/24/18 04:00 Room Air 04/24/18 04:00 107 04/24/18 04:00 98.6 105 20 116/78 (91) 100 04/24/18 00:00 108 04/24/18 00:00 98.0 112 20 120/81 (94) 100 04/24/18 00:00 Room Air Intake and Output 04/23/18 04/24/18 19:00 07:00 Intake Total 2000 ml 830 ml Balance 2000 ml 830 ml Intake Oral 0 ml IV Total 2000 ml 830 ml Other 0 ml # Voids 1 2 Laboratory Tests Test 04/24/18 03:20 04/24/18 18:05 White Blood Count 10.9 K/UL (4.8-10.8) H Red Blood Count 2.11 M/UL (4.20-5.40) L Hemoglobin 6.8 G/DL (12.0-16.0) Hematocrit 20.1 % (37.0-47.0) L Mean Corpuscular Volume 95 FL (80-99) Mean Corpuscular Hemoglobin 32.1 PG (27.0-31.0) H Mean Corpuscular Hemoglobin Concent 33.8 G/DL (32.0-36.0) Red Cell Distribution Width 10.9 % (11.6-14.8) L Platelet Count 239 K/UL (150-450) Mean Platelet Volume 6.2 FL (6.5-10.1) L Neutrophils (%) (Auto) % (45.0-75.0) Lymphocytes (%) (Auto) % (20.0-45.0) Monocytes (%) (Auto) % (1.0-10.0) Eosinophils (%) (Auto) % (0.0-3.0) Basophils (%) (Auto) % (0.0-2.0) Differential Total Cells Counted 100 Neutrophils % (Manual) 63 % (45-75) Lymphocytes % (Manual) 26 % (20-45) Monocytes % (Manual) 7 % (1-10) Eosinophils % (Manual) 1 % (0-3) Basophils % (Manual) 1 % (0-2) Band Neutrophils 2 % (0-8) Platelet Estimate Adequate Platelet Morphology Normal Hypochromasia 1+ Prothrombin Time 10.1 SEC (9.30-11.50) 10.4 SEC (9.30-11.50) Prothromb Time International Ratio 1.0 (0.9-1.1) 1.0 (0.9-1.1) Activated Partial Thromboplast Time 24 SEC (23-33) Sodium Level 145 MMOL/L (136-145) Potassium Level 3.7 MMOL/L (3.5-5.1) Chloride Level 113 MMOL/L (98-107) H Carbon Dioxide Level 22 MMOL/L (21-32) Anion Gap 10 mmol/L (5-15) Blood Urea Nitrogen 14 mg/dL (7-18) Creatinine 0.5 MG/DL (0.55-1.30) L Estimat Glomerular Filtration Rate > 60 mL/min (>60) Glucose Level 90 MG/DL (74-106) Calcium Level 8.0 MG/DL (8.5-10.1) L Reticulocyte Count 1.8 % (0.0-2.0) Sickle Cell Screen Pending Fibrinogen 207 mg/dL (200-400) Iron Level 194 ug/dL (50-175) H Total Iron Binding Capacity 264 ug/dL (250-450) Percent Iron Saturation 73 % (15-50) H Unsaturated Iron Binding 70 ug/dL (112-346) L Ferritin 48 NG/ML (8-388) Total Bilirubin 0.5 MG/DL (0.2-1.0) Direct Bilirubin 0.1 MG/DL (0.0-0.3) Lactate Dehydrogenase 159 U/L (81-234) Total Protein (PEP) Pending Albumin (PEP) Pending Globulin (PEP) Pending Albumin/Globulin Ratio Pending Bpouv-9-Rutokpbyy Pending Sejii-0-Nkrxwmdws Pending Beta Globulins Pending Beta Gamma Globulin Pending PEP Abnormal Protein Bands Pending Protein Electrophoresis Interpret Pending Vitamin B12 Level 412 PG/ML (193-986) Folate 20.0 NG/ML (8.6-58.9) Thyroid Stimulating Hormone (TSH) 0.405 uiU/mL (0.358-3.740) Height (Feet): 5 Height (Inches): 4.00 Weight (Pounds): 115 Medications Current Medications Medications (Trade) Dose Ordered Sig/Marisol Route PRN Reason Start Time Stop Time Status Last Admin Dose Admin Acetaminophen (Tylenol) 500 mg Q4H PRN ORAL Mild Pain (Pain Scale 1-3) 04/24/18 19:00 05/23/18 18:59 04/24/18 18:47 Acetaminophen (Tylenol) 500 mg Q4H PRN ORAL fever (temp>100.5F) 1/16/19 19:00 05/23/18 18:59 Dextrose (Dextrose 50%) 25 ml Q30M PRN IV Hypoglycemia 04/24/18 16:00 05/23/18 18:59 Dextrose (Dextrose 50%) 50 ml Q30M PRN IV Hypoglycemia 04/24/18 16:00 05/23/18 18:59 Pantoprazole 80 mg/Sodium Chloride 250 ml @ 25 mls/hr Q10H IV 04/25/18 01:00 05/25/18 00:59 Sodium Chloride 1,000 ml @ 55 mls/hr [id number] IV 04/24/18 16:00 05/23/18 15:59 04/24/18 16:19 Assessment/Plan Assessment/Plan Hematology/Oncology Consultation Requesting MD: Khadijah Farah Date of Service: 04/24/2018 Reason for consultation: severe anemia and leukocytosis HPI: The patient is a 47 years old female, who was admitted to [facility] emergency department for severe anemia, leukocytosis and evaluation of tachycardia. She has a history of unspecified immunological disorder on prednisone 5 mg p.o.daily, presents to the hospital with generalized weakness, nausea and vomiting, and black diarrhea. She also had generalized abdominal pain,which is described as crampy and sharp. She has not been able to eat for the last couple days.At the time of arrival to the hospital in the emergency department,heart rate was 144.A 12-lead electrocardiogram in the emergency department shows sinus tachycardia,rate of [address] and T-wave abnormalitiess. Patient states that she is a chronic alcohol user. Hematology/Oncology was consulted due to patient' s status of severe anemia and leukocytosis Patient currently being transfused with 2 units PRBC. WBC 15.9, HGB 6.8, PLT 239. Past Medical Hx: 1. Chronic alcoholism. 2. Immunological disorder. 3. Chronic inflammatory demyelinating polyneuropathy. 4. Cancer of mouth. Past Surgical Hx: none Social Hx: There is no history of tobacco or illicit drug use, however, she is a chronic alcohol abuser. Family history: No premature coronary artery disease in first-degree relatives. Allergies:NKDA Home meds: List of medications, cephalexin 500 mg q.6 hours, [place] 10/325 one tablet twice daily p.r.n. pain, Motrin 800 mg twice daily, and prednisone 10 mg daily. ROS: Constitutional: No fever, no chills, no night sweats, no fatigue Skin: No rashes, lumps, itchiness, dryness HEENT: No BARAJAS, ear ache, visual changes, double vision, nosebleeds, sore throat, lumps, swollen glands Breasts: No lumps, pain, discharge Pulmonary: No cough, sputum, shortness of breath, coughing up blood, hemoptysis Cardiovascular: No chest pain, tightness, palpitations, syncope, claudication, orthopnea, PND GI: No nausea, vomiting, diarrhea, melena, hematochezia, change in appetite, abdominal pain : No dysuria, frequency, urgency, urinary incontinence, foamy urine Musculoskeletal: No joint swelling or muscle pain, trauma, back pain Neurologic: No dizziness, fainting, seizures, changes in smell or taste Physical Exam Vital signs: Blood pressure was 149/76, pulse of 144, respirations 21, temperature 99.1 degrees Fahrenheit, and O2 saturation 97% on room air General Appearance: A+O x3, NAD HEENT: normocephalic, atraumatic Neck: non-tender, normal alignment Respiratory/Chest: chest wall non-tender, lungs clear, mild respiratory distress Cardiovascular/Chest: Tachycardic, no murmurs, gallops, or rubs. Abdomen: some tenderness over the right and left lower quadrants. Extremities: normal range of motion Labs: Laboratory findings, WBC was 15.9, hemoglobin 9.8, hematocrit of 28.5%, and platelet count is 322. INR is 0.9. Sodium 140, potassium is 3.3, chloride 105, bicarbonate 23, BUN of 30, creatinine 0.7, glucose 140, and calcium is 9.1. Troponin I was 0.015. Albumin is 3.6. A urine toxicology screen is positive for marijuana. Diagnostic data: Chest x-ray showed no acute cardiopulmonary disease. Assessment and Recommendations: # Anemia of iron deficiency due to underlying chronic medical issues, multifactorial, also likely due to gi bleed --> Anemia w/u has been ordered --> No evidence of hemolysis is noted, peripheral smear has been reviewed. --> Hgb goal >7. Transfuse prn --> tranfused 2 units PRBC --> hgb trend -->9.8-->6.8--> --> iv iron has been started # Leukocytosis/Elevated white blood cell count, --> have reviewed peripheral smear and bandemia/neutrophilia noted --> wbc trend --> 15.9-->10.9 --> continue antibiotics if they have been started by ID team --> monitor for resolution # Tachycardia-->treatment per cardiology --> increase intravascular volume by ivf --> cardiology obtain 2D echo # High blood pressure reading--> We will continue managing conservatively. # Gastric ulcer --> appreciate gi eval --> continue ppi # GI bleed --> monitor h/h The timing of this note does not necessarily reflect the time of the patient was seen Greatly appreciate consultation! Erik Mayen MD Apr 24, 2018 22:00
--- NOTE | 2018-04-24 22:05 | NUR ---
NURSE NOTES: Called Dr. Mcdonnell regarding patient's request for sleeping pill. Awaiting callback.
--- NOTE | 2018-04-24 23:55 | NUR ---
NURSE NOTES: Received new order from Dr. Mcdonnell for Remeron 15 mg PO QHS. Noted and carried out.
[2018-04-25] VITALS: BP 124/72
[2018-04-25] MEDS ORDERED: Pantoprazole 80 MG in NS 250 ML IV SCH ×2 (01:00→09:00)
--- NOTE | 2018-04-25 03:26 | NUR ---
NURSE NOTES: Patient is asleep lying right lateral recumbent; resting comfortably. No signs of acute distress or pain noted at this time.
[2018-04-25 04:00] VITALS: BP 94/63
[2018-04-25 06:59] LABS: ANION GAP 10 mmol/L (5-15); BLOOD UREA NITROGEN 16 mg/dL (7-18); CALCIUM 8.4 MG/DL (8.5-10.1); CARBON DIOXIDE 23 MMOL/L (21-32); CHLORIDE 110 MMOL/L (98-107); CREATININE 0.5 MG/DL (0.55-1.30); POTASSIUM 3.3 MMOL/L (3.5-5.1); SODIUM 143 MMOL/L (136-145)
[2018-04-25 07:04] LABS: BASOPHILS % (AUTO) 1.1 % (0.0-2.0); HEMATOCRIT 25.6 % (37.0-47.0); LYMPHOCYTES % (AUTO) 29.8 % (20.0-45.0); MEAN CORPUSCULAR VOLUME 91 FL (80-99); MONOCYTES % (AUTO) 7.7 % (1.0-10.0); NEUTROPHILS % (AUTO) 58.4 % (45.0-75.0); PLATELET COUNT 229 K/UL (150-450); RED CELL DISTRIBUTION WIDTH 12.6 % (11.6-14.8); WHITE BLOOD COUNT 10.2 K/UL (4.8-10.8)
--- NOTE | 2018-04-25 07:23 | NUR ---
HAND-OFF: Report given to ADRIEL Drake. Patient is asleep lying supine; resting comfortably. In stable condition.
--- NOTE | 2018-04-25 07:26 | NUR ---
NURSE NOTES: Pt received from Teodora Denise RN currently resting in bed. No complaints or s/s of pain, SOB, or n/v. IV site asymptomatic and patent, running to Protonix and 0.45% NS as ordered. Bed in lowest position, call light and belongings within reach.
[2018-04-25 07:30] LABS: HEMOGLOBIN 8.8 G/DL (12.0-16.0)
[2018-04-25 08:00] VITALS: BP 126/81
[2018-04-25 08:25] LABS: ALANINE AMINOTRANSFERASE 26 U/L (12-78); ALBUMIN 2.8 G/DL (3.4-5.0); ALKALINE PHOSPHATASE 66 U/L (46-116); ASPARTATE AMINO TRANSFERASE 25 U/L (15-37); BILIRUBIN,DIRECT 0.1 MG/DL (0.0-0.3); BILIRUBIN,TOTAL 0.5 MG/DL (0.2-1.0); GAMMA GLUTAMYL TRANSPEPTIDASE 42 U/L (5-85); PHOSPHORUS 3.1 MG/DL (2.5-4.9)
--- NOTE | 2018-04-25 08:55 | Consultation ---
History of Present Illness General Chief Complaint: Nausea, Vomiting, and Diarrhea Referring physician: SHAHZAD CARREON Reason for Consultation: GI BLEED Present Illness Allergies: Coded Allergies: No Known Allergies (Unverified , 01/11/13) Medication History Discontinued Medications Cephalexin* (Keflex*), 500 MG ORAL Q6H Discontinued Reason: MD discontinued med Hydrocodone Bit/Acetaminophen 10-325* ([place] 10-325*), 1 TAB ORAL BID PRN for For Pain, (Reported) Discontinued Reason: MD discontinued med Ibuprofen* (Motrin*), 800 MG ORAL BID, (Reported) Discontinued Reason: MD discontinued med Prednisone* (Prednisone*), 10 MG ORAL DAILY, (Reported) Discontinued Reason: MD discontinued med Patient History Healthcare decision maker Leyla Coppola Resuscitation status Full Code Advanced Directive on File Physical Exam Last 24 Hour Vital Signs Date Time Temp Pulse Resp B/P (MAP) Pulse Ox O2 Delivery O2 Flow Rate FiO2 04/25/18 04:00 102 04/25/18 04:00 98.2 106 18 94/63 (73) 99 04/25/18 00:00 103 04/25/18 00:00 99.3 119 18 124/72 (89) 100 04/24/18 21:00 Room Air 04/24/18 20:00 97 04/24/18 20:00 97.7 109 18 106/68 (81) 99 04/24/18 19:17 98.3 04/24/18 18:44 98.3 04/24/18 16:22 99.0 101 18 119/69 (86) 100 04/24/18 16:00 Room Air 04/24/18 15:31 113 04/24/18 13:34 100 18 100 04/24/18 13:28 99 19 100 04/24/18 13:27 98.0 96 18 120/69 100 Nasal Cannula 3 04/24/18 13:20 103 21 121/80 100 Nasal Cannula 3 04/24/18 13:20 98 20 122/60 100 Nasal Cannula 3 04/24/18 13:15 98.5 101 19 123/78 100 Nasal Cannula 3 04/24/18 12:00 Room Air 04/24/18 12:00 97.8 95 22 122/74 (90) 100 04/24/18 12:00 95 Intake and Output 04/24/18 04/25/18 18:59 06:59 Intake Total 2372.5 ml 1166 ml Output Total 0 ml Balance 2372.5 ml 1166 ml Intake Oral 1000 ml 240 ml IV Total 902.5 ml 926 ml Blood Product 470 ml Output Estimated Blood Loss 0 ml # Voids 4 5 # Bowel Movements 1 Laboratory Tests Test 04/24/18 17:30 04/24/18 18:05 04/25/18 05:20 Stool Occult Blood Positive (NEGATIVE) Reticulocyte Count 1.8 % (0.0-2.0) Sickle Cell Screen Pending Prothrombin Time 10.4 SEC (9.30-11.50) Prothromb Time International Ratio 1.0 (0.9-1.1) Fibrinogen 207 mg/dL (200-400) Iron Level 194 ug/dL (50-175) H Total Iron Binding Capacity 264 ug/dL (250-450) Percent Iron Saturation 73 % (15-50) H Unsaturated Iron Binding 70 ug/dL (112-346) L Ferritin 48 NG/ML (8-388) Total Bilirubin 0.5 MG/DL (0.2-1.0) 0.5 MG/DL (0.2-1.0) Direct Bilirubin 0.1 MG/DL (0.0-0.3) 0.1 MG/DL (0.0-0.3) Lactate Dehydrogenase 159 U/L (81-234) Total Protein (PEP) Pending Albumin (PEP) Pending Globulin (PEP) Pending Albumin/Globulin Ratio Pending Vwbta-5-Vmytfnwdp Pending Ceoii-4-Bmmlhdfct Pending Beta Globulins Pending Beta Gamma Globulin Pending PEP Abnormal Protein Bands Pending Protein Electrophoresis Interpret Pending Vitamin B12 Level 412 PG/ML (193-986) Folate 20.0 NG/ML (8.6-58.9) Thyroid Stimulating Hormone (TSH) 0.405 uiU/mL (0.358-3.740) White Blood Count 10.2 K/UL (4.8-10.8) Red Blood Count 2.80 M/UL (4.20-5.40) L Hemoglobin 8.8 G/DL (12.0-16.0) L Hematocrit 25.6 % (37.0-47.0) L Mean Corpuscular Volume 91 FL (80-99) Mean Corpuscular Hemoglobin 31.6 PG (27.0-31.0) H Mean Corpuscular Hemoglobin Concent 34.6 G/DL (32.0-36.0) Red Cell Distribution Width 12.6 % (11.6-14.8) Platelet Count 229 K/UL (150-450) Mean Platelet Volume 6.4 FL (6.5-10.1) L Neutrophils (%) (Auto) 58.4 % (45.0-75.0) Lymphocytes (%) (Auto) 29.8 % (20.0-45.0) Monocytes (%) (Auto) 7.7 % (1.0-10.0) Eosinophils (%) (Auto) 3.0 % (0.0-3.0) Basophils (%) (Auto) 1.1 % (0.0-2.0) Sodium Level 143 MMOL/L (136-145) Potassium Level 3.3 MMOL/L (3.5-5.1) L Chloride Level 110 MMOL/L (98-107) H Carbon Dioxide Level 23 MMOL/L (21-32) Anion Gap 10 mmol/L (5-15) Blood Urea Nitrogen 16 mg/dL (7-18) Creatinine 0.5 MG/DL (0.55-1.30) L Estimat Glomerular Filtration Rate > 60 mL/min (>60) Glucose Level 80 MG/DL (74-106) Calcium Level 8.4 MG/DL (8.5-10.1) L Phosphorus Level 3.1 MG/DL (2.5-4.9) Magnesium Level 1.6 MG/DL (1.8-2.4) L Gamma Glutamyl Transpeptidase 42 U/L (5-85) Aspartate Amino Transf (AST/SGOT) 25 U/L (15-37) Alanine Aminotransferase (ALT/SGPT) 26 U/L (12-78) Alkaline Phosphatase 66 U/L (46-116) Total Protein 5.7 G/DL (6.4-8.2) L Albumin 2.8 G/DL (3.4-5.0) L Height (Feet): 5 Height (Inches): 4.00 Weight (Pounds): 115 Medications Current Medications Medications (Trade) Dose Ordered Sig/Marisol Route PRN Reason Start Time Stop Time Status Last Admin Dose Admin Acetaminophen (Tylenol) 500 mg Q4H PRN ORAL Mild Pain (Pain Scale 1-3) 04/24/18 19:00 05/23/18 18:59 04/24/18 18:47 Acetaminophen (Tylenol) 500 mg Q4H PRN ORAL fever (temp>100.5F) 04/24/18 19:00 05/23/18 18:59 Dextrose (Dextrose 50%) 25 ml Q30M PRN IV Hypoglycemia 04/24/18 16:00 05/23/18 18:59 Dextrose (Dextrose 50%) 50 ml Q30M PRN IV Hypoglycemia 04/24/18 16:00 05/23/18 18:59 Iron Sucrose 100 mg/Sodium Chloride 60 ml @ 240 mls/hr BEDTIME IV 04/25/18 21:00 04/29/18 21:14 Mirtazapine (Remeron) 15 mg QHS ORAL 04/25/18 00:15 05/25/18 00:14 04/25/18 01:18 Pantoprazole 80 mg/Sodium Chloride 250 ml @ 25 mls/hr Q10H IV 04/25/18 01:00 04/25/18 08:59 04/25/18 01:18 Pantoprazole 80 mg/Sodium Chloride 250 ml @ 25 mls/hr Q10H IV 04/25/18 09:00 05/25/18 08:59 04/25/18 08:47 Potassium Chloride 100 ml @ 100 mls/hr Q1HR IVPB 04/25/18 09:00 04/25/18 11:59 04/25/18 08:45 Heidy Mcdonnell MD Apr 25, 2018 08:55
--- NOTE | 2018-04-25 09:59 | NUR ---
*-* INSURANCE CLINICALS AND REVIEWS FAXED TO: [employer]IR[employer] P:[phone] F: [phone]
--- NOTE | 2018-04-25 10:11 | NUR ---
CASE MANAGEMENT:REVIEW 04/25/18 SI: GIB. S/P EGD(+) GASTRITIS 99.3 103 18 124/72 100% ON RA H/H-8.8/25.6 K-3.3 IS: IV VENOFER QHS IV MAG SULFATE Q1HRS X2 IV KCL Q1HRS X3 PROTONIX GTT REMERON PO QHS : TELEMETRY STATUS
--- NOTE | 2018-04-25 11:00 | History and Physical Report ---
DATE OF ADMISSION: 04/23/2018 "NOTE: POOR AUDIO QUALITY" HISTORY OF PRESENT ILLNESS: The patient is admitted for GI bleeding. The patient reports black stools and watery stools and abdominal cramps for two days. The patient has history of CIDP and placed on multiple pain medications. The patient . The patient GI bleeding . PAST MEDICAL HISTORY: Significant for basically GERD, history of recurrent bleeding, and peptic ulcer disease. The patient also has CIDP. PAST SURGICAL HISTORY: . SOCIAL HISTORY: History of smoking, history of marijuana, and history of alcohol abuse. MEDICATIONS: She takes pain medications and heartburn medications. FAMILY HISTORY: Noncontributory. REVIEW OF SYSTEMS: HEENT: Denies headaches. RESPIRATORY: Denies shortness of breath. Denies cough. CARDIOVASCULAR: Denies chest pain. No orthopnea. GASTROINTESTINAL: Reports black watery stools and abdominal pain for two days. EXTREMITIES: . PHYSICAL EXAMINATION: VITAL SIGNS: Temperature , and blood pressure 119/69. HEENT: PERRLA. NECK: Supple. No lymphadenopathy. CHEST: Clear to auscultation. CARDIOVASCULAR: Regular rate and rhythm. ABDOMEN: Soft. both sides. LABORATORY DATA: and platelets . Sodium , potassium 3.7, BUN of 14, creatinine 0.5, and glucose of 90. ASSESSMENT AND PLAN: 1. GI bleeding. 2. tachycardia. 3. Leukocytosis. I have asked Dr. Erik Mayen, Dr. Patino, Dr. Webb, and to see the patient for Khadijah Farah M.D. DR: ABEL JOB#: [id number] CC:
--- NOTE | 2018-04-25 12:20 | General Progress Note ---
Assessment/Plan Assessment/Plan # Anemia of iron deficiency due to gastirits, potentially a slow bleed --> Anemia w/u has been ordered, ferritin is low and c/w aid --> No evidence of hemolysis is noted, peripheral smear has been reviewed. --> Hgb goal >7. Transfuse prn --> tranfused 2 units PRBC --> hgb trend -->9.8-->6.8--> 8.8 --> iv iron has been started x 5 days # Leukocytosis/Elevated white blood cell count, --> have reviewed peripheral smear and bandemia/neutrophilia noted --> wbc trend --> 15.9-->10.9 --> continue antibiotics if they have been started by ID team --> monitor for resolution # Tachycardia, nsr, treatment per cardiology --> increase intravascular volume by ivf --> cardiology obtain 2D echo # High blood pressure reading--> We will continue managing conservatively. # Gastric ulcer --> appreciate gi eval --> continue ppi # GI bleed --> monitor h/h The timing of this note does not necessarily reflect the time of the patient was seen Greatly appreciate consultation! Subjective Cardiovascular: Denies: no symptoms, chest pain, edema, irregular heart rate, lightheadedness, palpitations, syncope, other Respiratory: Denies: no symptoms, cough, orthopnea, shortness of breath, SOB with excertion, SOB at rest, sputum, stridor, wheezing, other Gastrointestinal/Abdominal: Denies: no symptoms, abdomen distended, abdominal pain, black stools, tarry stools, blood in stool, constipated, diarrhea, difficulty swallowing, nausea, poor appetite, poor fluid intake, rectal bleeding , vomiting, other Neurologic/Psychiatric: Denies: no symptoms, anxiety, depressed, emotional problems, headache, numbness, paresthesia, pre-existing deficit, seizure, tingling, tremors, weakness, other Endocrine: Denies: no symptoms, excessive sweating, flushing, intolerance to cold, intolerance to heat, increased hunger, increased thirst, increased urine, unexplained weight gain, unexplained weight loss, other Hematologic/Lymphatic: Denies: no symptoms, anemia, easy bleeding, easy bruising, other Allergies: Coded Allergies: No Known Allergies (Unverified , 01/11/13) Subjective 04/25: no events, s/p egd, showing gastritis, started on iv iron, h/h better, feeling better Objective Last 24 Hour Vital Signs Date Time Temp Pulse Resp B/P (MAP) Pulse Ox O2 Delivery O2 Flow Rate FiO2 04/25/18 09:00 Room Air 04/25/18 08:00 100.5 121 21 126/81 (96) 100 04/25/18 08:00 122 04/25/18 04:00 102 04/25/18 04:00 98.2 106 18 94/63 (73) 99 04/25/18 00:00 103 04/25/18 00:00 99.3 119 18 124/72 (89) 100 04/24/18 21:00 Room Air 04/24/18 20:00 97 04/24/18 20:00 97.7 109 18 106/68 (81) 99 04/24/18 19:17 98.3 04/24/18 18:44 98.3 04/24/18 16:22 99.0 101 18 119/69 (86) 100 04/24/18 16:00 Room Air 04/24/18 15:31 113 04/24/18 13:34 100 18 100 04/24/18 13:28 99 19 100 04/24/18 13:27 98.0 96 18 120/69 100 Nasal Cannula 3 04/24/18 13:20 103 21 121/80 100 Nasal Cannula 3 04/24/18 13:20 98 20 122/60 100 Nasal Cannula 3 04/24/18 13:15 98.5 101 19 123/78 100 Nasal Cannula 3 Intake and Output 04/24/18 04/25/18 18:59 06:59 Intake Total 2372.5 ml 1166 ml Output Total 0 ml Balance 2372.5 ml 1166 ml Intake Oral 1000 ml 240 ml IV Total 902.5 ml 926 ml Blood Product 470 ml Output Estimated Blood Loss 0 ml # Voids 4 5 # Bowel Movements 1 Laboratory Tests 04/24/18 17:30: Stool Occult Blood Positive 04/24/18 18:05: Reticulocyte Count 1.8, Sickle Cell Screen [Pending], Prothrombin Time 10.4, Prothromb Time International Ratio 1.0, Fibrinogen 207, Iron Level 194H, Total Iron Binding Capacity 264, Percent Iron Saturation 73H, Unsaturated Iron Binding 70L, Ferritin 48, Total Bilirubin 0.5, Direct Bilirubin 0.1, Lactate Dehydrogenase 159, Total Protein (PEP) 5.3L, Albumin (PEP) 3.1, Globulin (PEP) 2.2, Albumin/Globulin Ratio 1.4, Ywfls-5-Butxgtxwl 0.2, Cceiw-6-Zoeuekjit 0.6, Beta Globulins 0.8, Beta Gamma Globulin 0.6, PEP Abnormal Protein Bands Not observed, Protein Electrophoresis Interpret Comment, Vitamin B12 Level 412, Folate 20.0, Thyroid Stimulating Hormone (TSH) 0.405 04/25/18 05:20: Total Bilirubin 0.5, Direct Bilirubin 0.1, White Blood Count 10.2, Red Blood Count 2.80L, Hemoglobin 8.8L, Hematocrit 25.6L, Mean Corpuscular Volume 91, Mean Corpuscular Hemoglobin 31.6H, Mean Corpuscular Hemoglobin Concent 34.6, Red Cell Distribution Width 12.6, Platelet Count 229, Mean Platelet Volume 6.4L , Neutrophils (%) (Auto) 58.4, Lymphocytes (%) (Auto) 29.8, Monocytes (%) (Auto ) 7.7, Eosinophils (%) (Auto) 3.0, Basophils (%) (Auto) 1.1, Sodium Level 143, Potassium Level 3.3L, Chloride Level 110H, Carbon Dioxide Level 23, Anion Gap 10 , Blood Urea Nitrogen 16, Creatinine 0.5L, Estimat Glomerular Filtration Rate > 60, Glucose Level 80, Calcium Level 8.4L, Phosphorus Level 3.1, Magnesium Level 1.6L, Gamma Glutamyl Transpeptidase 42, Aspartate Amino Transf (AST/SGOT) 25, Alanine Aminotransferase (ALT/SGPT) 26, Alkaline Phosphatase 66, Total Protein 5.7L, Albumin 2.8L Height (Feet): 5 Height (Inches): 4.00 Weight (Pounds): 115 General Appearance: alert EENT: TMs normal Neck: supple Cardiovascular: regular rhythm Respiratory/Chest: no accessory muscle use Genitourinary/Rectal: heme negative stool Extremities: normal inspection Edema: 1+ Leg (L), 1+ Pedal (L) Neurologic: oriented x 3 Skin: warm/dry Objective Physical Exam Vital signs: Reviewed General Appearance: A+O x3, NAD HEENT: normocephalic, atraumatic Neck: non-tender, normal alignment Respiratory/Chest: chest wall non-tender, lungs clear, mild respiratory distress Cardiovascular/Chest: Tachycardic, no murmurs, gallops, or rubs. Abdomen: some tenderness over the right and left lower quadrants. Extremities: normal range of motion Erik Mayen MD Apr 25, 2018 12:20
[2018-04-25] MEDS ORDERED: NS 275ml ONE (12:30)
--- NOTE | 2018-04-25 12:37 | NUR ---
AMA: SEE AMA FORM. Pt left AMA, RN advised client of the risks and benefits of leaving AMA and that her Potassium and Magnesium level are currently low and are being currently replenished at this time to prevent adverse reactions, but pt stated "No, it's not that. I just don't want to stay in the hospital anymore. I can't breathe when I'm in the hospital, I want to just leave. I'm done with hospitals." Pt's mother - Leyla Coppola - was at the bedside and stated that she supports her daughter's decision. RN informed Dr. Farah and Dr. Mcdonnell of pt's intentions of leaving AMA - per Dr. Mcdonnell "pt has capacity to sign, she can go." Pt signed AMA form and Belongings form prior to AMA and has all belongings with her upon discharge. IV site d/steven and patient wristband removed as per protocol.
--- NOTE | 2018-04-25 12:43 | GI Progress Note ---
Assessment/Plan Problems: (1) GI bleed ICD Codes: K92.2 - Gastrointestinal hemorrhage, unspecified SNOMED: 76451855 (2) PUD (peptic ulcer disease) ICD Codes: K27.9 - Peptic ulcer, site unspecified, unspecified as acute or chronic, without hemorrhage or perforation SNOMED: 82607705 (3) Varices, esophageal ICD Codes: I85.00 - Esophageal varices without bleeding SNOMED: [id number] Status: stable Status Narrative Discussed with Dr. Cedeño Assessment/Plan SUMMARY OF FINDINGS: 1. Gastritis, status post biopsy. 2. No evidence of any active upper GI bleeding. 3. Small lesion in the lesser curvature of unknown significance. See above for details. OB stool positive RECOMMENDATIONS: 1. Follow up biopsy results and treat accordingly. 2. Resume diet. 3. Monitor hemoglobin and hematocrit. Transfuse as needed. 4. Change to PPI two daily. fu labs okay for DC per GI standpoint Outpatient GI procedures Subjective Gastrointestinal/Abdominal: Reports: no symptoms Objective Last 24 Hour Vital Signs Date Time Temp Pulse Resp B/P (MAP) Pulse Ox O2 Delivery O2 Flow Rate FiO2 04/25/18 09:00 Room Air 04/25/18 08:00 100.5 121 21 126/81 (96) 100 04/25/18 08:00 122 04/25/18 04:00 102 04/25/18 04:00 98.2 106 18 94/63 (73) 99 04/25/18 00:00 103 04/25/18 00:00 99.3 119 18 124/72 (89) 100 04/24/18 21:00 Room Air 04/24/18 20:00 97 04/24/18 20:00 97.7 109 18 106/68 (81) 99 04/24/18 19:17 98.3 04/24/18 18:44 98.3 04/24/18 16:22 99.0 101 18 119/69 (86) 100 04/24/18 16:00 Room Air 04/24/18 15:31 113 04/24/18 13:34 100 18 100 04/24/18 13:28 99 19 100 04/24/18 13:27 98.0 96 18 120/69 100 Nasal Cannula 3 04/24/18 13:20 103 21 121/80 100 Nasal Cannula 3 04/24/18 13:20 98 20 122/60 100 Nasal Cannula 3 04/24/18 13:15 98.5 101 19 123/78 100 Nasal Cannula 3 Intake and Output 04/24/18 04/25/18 18:59 06:59 Intake Total 2372.5 ml 1166 ml Output Total 0 ml Balance 2372.5 ml 1166 ml Intake Oral 1000 ml 240 ml IV Total 902.5 ml 926 ml Blood Product 470 ml Output Estimated Blood Loss 0 ml # Voids 4 5 # Bowel Movements 1 Laboratory Tests Test 04/24/18 17:30 04/24/18 18:05 04/25/18 05:20 Stool Occult Blood Positive (NEGATIVE) Reticulocyte Count 1.8 % (0.0-2.0) Sickle Cell Screen Pending Prothrombin Time 10.4 SEC (9.30-11.50) Prothromb Time International Ratio 1.0 (0.9-1.1) Fibrinogen 207 mg/dL (200-400) Iron Level 194 ug/dL (50-175) H Total Iron Binding Capacity 264 ug/dL (250-450) Percent Iron Saturation 73 % (15-50) H Unsaturated Iron Binding 70 ug/dL (112-346) L Ferritin 48 NG/ML (8-388) Total Bilirubin 0.5 MG/DL (0.2-1.0) 0.5 MG/DL (0.2-1.0) Direct Bilirubin 0.1 MG/DL (0.0-0.3) 0.1 MG/DL (0.0-0.3) Lactate Dehydrogenase 159 U/L (81-234) Total Protein (PEP) 5.3 g/dL (6.0-8.5) L Albumin (PEP) 3.1 g/dL (2.9-4.4) Globulin (PEP) 2.2 g/dL (2.2-3.9) Albumin/Globulin Ratio 1.4 (0.7-1.7) Betaz-2-Avpayzkbk 0.2 g/dL (0.0-0.4) Odswi-1-Qjuahhysx 0.6 g/dL (0.4-1.0) Beta Globulins 0.8 g/dL (0.7-1.3) Beta Gamma Globulin 0.6 g/dL (0.4-1.8) PEP Abnormal Protein Bands Not observed g/dL (Not Protein Electrophoresis Interpret Comment (.) Vitamin B12 Level 412 PG/ML (193-986) Folate 20.0 NG/ML (8.6-58.9) Thyroid Stimulating Hormone (TSH) 0.405 uiU/mL (0.358-3.740) White Blood Count 10.2 K/UL (4.8-10.8) Red Blood Count 2.80 M/UL (4.20-5.40) L Hemoglobin 8.8 G/DL (12.0-16.0) L Hematocrit 25.6 % (37.0-47.0) L Mean Corpuscular Volume 91 FL (80-99) Mean Corpuscular Hemoglobin 31.6 PG (27.0-31.0) H Mean Corpuscular Hemoglobin Concent 34.6 G/DL (32.0-36.0) Red Cell Distribution Width 12.6 % (11.6-14.8) Platelet Count 229 K/UL (150-450) Mean Platelet Volume 6.4 FL (6.5-10.1) L Neutrophils (%) (Auto) 58.4 % (45.0-75.0) Lymphocytes (%) (Auto) 29.8 % (20.0-45.0) Monocytes (%) (Auto) 7.7 % (1.0-10.0) Eosinophils (%) (Auto) 3.0 % (0.0-3.0) Basophils (%) (Auto) 1.1 % (0.0-2.0) Sodium Level 143 MMOL/L (136-145) Potassium Level 3.3 MMOL/L (3.5-5.1) L Chloride Level 110 MMOL/L (98-107) H Carbon Dioxide Level 23 MMOL/L (21-32) Anion Gap 10 mmol/L (5-15) Blood Urea Nitrogen 16 mg/dL (7-18) Creatinine 0.5 MG/DL (0.55-1.30) L Estimat Glomerular Filtration Rate > 60 mL/min (>60) Glucose Level 80 MG/DL (74-106) Calcium Level 8.4 MG/DL (8.5-10.1) L Phosphorus Level 3.1 MG/DL (2.5-4.9) Magnesium Level 1.6 MG/DL (1.8-2.4) L Gamma Glutamyl Transpeptidase 42 U/L (5-85) Aspartate Amino Transf (AST/SGOT) 25 U/L (15-37) Alanine Aminotransferase (ALT/SGPT) 26 U/L (12-78) Alkaline Phosphatase 66 U/L (46-116) Total Protein 5.7 G/DL (6.4-8.2) L Albumin 2.8 G/DL (3.4-5.0) L Height (Feet): 5 Height (Inches): 4.00 Weight (Pounds): 115 General Appearance: WD/WN, no apparent distress, alert Cardiovascular: normal rate Respiratory/Chest: normal breath sounds, no respiratory distress Abdominal Exam: normal bowel sounds, non tender, soft Extremities: normal range of motion, non-tender Tamara Adkins NP Apr 25, 2018 12:43
--- NOTE | 2018-04-25 16:37 | NUR ---
*-* INSURANCE *-* ALL CLINICALS HAVE BEEN FAXED TO: [facility] FAX F/S TO: [phone] FAX CLI TO: [phone]
[2018-04-25] MEDS ORDERED: Iron Sucrose 100 MG in NS 55 ML IV SCH (21:00)
--- NOTE | 2018-04-25 23:43 | Consultation ---
History of Present Illness General Chief Complaint: Nausea, Vomiting, and Diarrhea Referring physician: SHAHZAD CARREON Reason for Consultation: GI BLEED Present Illness Allergies: Coded Allergies: No Known Allergies (Unverified , 01/11/13) Medication History Discontinued Medications Cephalexin* (Keflex*), 500 MG ORAL Q6H Discontinued Reason: MD discontinued med Hydrocodone Bit/Acetaminophen 10-325* ([place]ary 10-325*), 1 TAB ORAL BID PRN for For Pain, (Reported) Discontinued Reason: MD discontinued med Ibuprofen* (Motrin*), 800 MG ORAL BID, (Reported) Discontinued Reason: MD discontinued med Prednisone* (Prednisone*), 10 MG ORAL DAILY, (Reported) Discontinued Reason: MD discontinued med Patient History Healthcare decision maker Leyla Coppola Resuscitation status Full Code Advanced Directive on File Physical Exam Last 24 Hour Vital Signs Date Time Temp Pulse Resp B/P (MAP) Pulse Ox O2 Delivery O2 Flow Rate FiO2 04/25/18 09:00 Room Air 04/25/18 08:00 100.5 121 21 126/81 (96) 100 04/25/18 08:00 122 04/25/18 04:00 102 04/25/18 04:00 98.2 106 18 94/63 (73) 99 04/25/18 00:00 103 04/25/18 00:00 99.3 119 18 124/72 (89) 100 Intake and Output 04/24/18 04/25/18 19:00 07:00 Intake Total 2372.5 ml 1166 ml Output Total 0 ml Balance 2372.5 ml 1166 ml Intake Oral 1000 ml 240 ml IV Total 902.5 ml 926 ml Blood Product 470 ml Output Estimated Blood Loss 0 ml # Voids 4 5 # Bowel Movements 1 Laboratory Tests Test 04/25/18 05:20 White Blood Count 10.2 K/UL (4.8-10.8) Red Blood Count 2.80 M/UL (4.20-5.40) L Hemoglobin 8.8 G/DL (12.0-16.0) L Hematocrit 25.6 % (37.0-47.0) L Mean Corpuscular Volume 91 FL (80-99) Mean Corpuscular Hemoglobin 31.6 PG (27.0-31.0) H Mean Corpuscular Hemoglobin Concent 34.6 G/DL (32.0-36.0) Red Cell Distribution Width 12.6 % (11.6-14.8) Platelet Count 229 K/UL (150-450) Mean Platelet Volume 6.4 FL (6.5-10.1) L Neutrophils (%) (Auto) 58.4 % (45.0-75.0) Lymphocytes (%) (Auto) 29.8 % (20.0-45.0) Monocytes (%) (Auto) 7.7 % (1.0-10.0) Eosinophils (%) (Auto) 3.0 % (0.0-3.0) Basophils (%) (Auto) 1.1 % (0.0-2.0) Sodium Level 143 MMOL/L (136-145) Potassium Level 3.3 MMOL/L (3.5-5.1) L Chloride Level 110 MMOL/L (98-107) H Carbon Dioxide Level 23 MMOL/L (21-32) Anion Gap 10 mmol/L (5-15) Blood Urea Nitrogen 16 mg/dL (7-18) Creatinine 0.5 MG/DL (0.55-1.30) L Estimat Glomerular Filtration Rate > 60 mL/min (>60) Glucose Level 80 MG/DL (74-106) Calcium Level 8.4 MG/DL (8.5-10.1) L Phosphorus Level 3.1 MG/DL (2.5-4.9) Magnesium Level 1.6 MG/DL (1.8-2.4) L Total Bilirubin 0.5 MG/DL (0.2-1.0) Direct Bilirubin 0.1 MG/DL (0.0-0.3) Gamma Glutamyl Transpeptidase 42 U/L (5-85) Aspartate Amino Transf (AST/SGOT) 25 U/L (15-37) Alanine Aminotransferase (ALT/SGPT) 26 U/L (12-78) Alkaline Phosphatase 66 U/L (46-116) Total Protein 5.7 G/DL (6.4-8.2) L Albumin 2.8 G/DL (3.4-5.0) L Height (Feet): 5 Height (Inches): 4.00 Weight (Pounds): 115 Heidy Mcdonnell MD Apr 25, 2018 23:43
--- NOTE | 2018-04-25 23:57 | Cardiology Progress Note ---
Assessment/Plan Assessment/Plan The patient is seen and examined, full consult note will be dictated soon. Objective Last 24 Hour Vital Signs Date Time Temp Pulse Resp B/P (MAP) Pulse Ox O2 Delivery O2 Flow Rate FiO2 04/25/18 09:00 Room Air 04/25/18 08:00 100.5 121 21 126/81 (96) 100 04/25/18 08:00 122 04/25/18 04:00 102 04/25/18 04:00 98.2 106 18 94/63 (73) 99 04/25/18 00:00 103 04/25/18 00:00 99.3 119 18 124/72 (89) 100 Intake and Output 04/24/18 04/25/18 19:00 07:00 Intake Total 2372.5 ml 1166 ml Output Total 0 ml Balance 2372.5 ml 1166 ml Intake Oral 1000 ml 240 ml IV Total 902.5 ml 926 ml Blood Product 470 ml Output Estimated Blood Loss 0 ml # Voids 4 5 # Bowel Movements 1 Laboratory Tests Test 04/25/18 05:20 White Blood Count 10.2 K/UL (4.8-10.8) Red Blood Count 2.80 M/UL (4.20-5.40) L Hemoglobin 8.8 G/DL (12.0-16.0) L Hematocrit 25.6 % (37.0-47.0) L Mean Corpuscular Volume 91 FL (80-99) Mean Corpuscular Hemoglobin 31.6 PG (27.0-31.0) H Mean Corpuscular Hemoglobin Concent 34.6 G/DL (32.0-36.0) Red Cell Distribution Width 12.6 % (11.6-14.8) Platelet Count 229 K/UL (150-450) Mean Platelet Volume 6.4 FL (6.5-10.1) L Neutrophils (%) (Auto) 58.4 % (45.0-75.0) Lymphocytes (%) (Auto) 29.8 % (20.0-45.0) Monocytes (%) (Auto) 7.7 % (1.0-10.0) Eosinophils (%) (Auto) 3.0 % (0.0-3.0) Basophils (%) (Auto) 1.1 % (0.0-2.0) Sodium Level 143 MMOL/L (136-145) Potassium Level 3.3 MMOL/L (3.5-5.1) L Chloride Level 110 MMOL/L (98-107) H Carbon Dioxide Level 23 MMOL/L (21-32) Anion Gap 10 mmol/L (5-15) Blood Urea Nitrogen 16 mg/dL (7-18) Creatinine 0.5 MG/DL (0.55-1.30) L Estimat Glomerular Filtration Rate > 60 mL/min (>60) Glucose Level 80 MG/DL (74-106) Calcium Level 8.4 MG/DL (8.5-10.1) L Phosphorus Level 3.1 MG/DL (2.5-4.9) Magnesium Level 1.6 MG/DL (1.8-2.4) L Total Bilirubin 0.5 MG/DL (0.2-1.0) Direct Bilirubin 0.1 MG/DL (0.0-0.3) Gamma Glutamyl Transpeptidase 42 U/L (5-85) Aspartate Amino Transf (AST/SGOT) 25 U/L (15-37) Alanine Aminotransferase (ALT/SGPT) 26 U/L (12-78) Alkaline Phosphatase 66 U/L (46-116) Total Protein 5.7 G/DL (6.4-8.2) L Albumin 2.8 G/DL (3.4-5.0) L Microbiology Date/Time Source Procedure Growth Status 04/23/18 14:19 Blood Blood Culture - Preliminary NO GROWTH AFTER 24 HOURS Resulted 04/23/18 14:19 Blood Blood Culture - Preliminary NO GROWTH AFTER 24 HOURS Resulted 04/23/18 16:00 Nasal Nares Influenza Types A,B Antigen (NOMAN) - Final Complete Hernando Patino MD Apr 25, 2018 23:57
--- NOTE | 2018-04-26 10:03 | Discharge Summary ---
Discharge Summary Discharge Summary _ DATE OF ADMISSION: 04/23/2018 DATE OF DISCHARGE: 04/25/2018 ADMITTED BY: Dr. Khadijah Damon CONSULTANTS: Dr. Hernando Mayen [facility] COURSE: Patient is a 47-year-old female, with history of unspecified immunology disorder , she is on prednisone 5 mg a day. She presented to ED complaining of generalized weakness, nausea and vomiting. She stated that she had nausea more than 5 episodes the day prior, vomitus was yellow in color. She also had episodes of black diarrhea. She complained of generalized lower abdominal pain , described to be crampy and sharp. She stated she did not feel well and was not able to eat for the last couple of days. She admitted to chronic alcohol use, she denied any endoscopy or colonoscopy in the past. She denied any cough. No chest pain or shortness of breath. Denied any other drug use aside from alcohol. On evaluation at the ED, blood pressure was 149/76, pulse rate 144. Blood work showed elevated WBC 15.9. Hemoglobin was low at 9.8, hematocrit 28. Urinalysis showed 3+ leukocyte esterase, 5+ occult blood, 2-4 RBC, 2-4 WBC. Urine toxicology was positive for marijuana. Influenza screen was negative. EKG done showed sinus tachycardia with no acute changes. Chest x-ray showed no acute disease. She was given IV hydration. She was started on octreotide and Protonix drip. She was then admitted for evaluation of GI bleed. She was kept n.p.o. She was given IV hydration. Following day there was further drop in hemoglobin to 6.8, hematocrit 20. She was given 2 units packed RBC blood transfusion. On 04/24/2018, she underwent upper endoscopy with findings of gastritis. There was no evidence of any active upper GI bleed. There was a lesion along the lesser curvature of the gastric wall mid body of unknown significance. It she was recommended proton pump inhibitors twice daily. She was resumed on diet. Patient was initially tachycardic. Cardiology was consulted. EKG at emergency department showed sinus tachycardia at a rate of [address] to T wave abnormalities. Sinus tachycardia was assessed to be due to a combination of hypovolemia and electrolyte abnormality. She was recommended IV fluid administration. No AV david agent recommended. An echocardiogram was done that showed ejection fraction of 65% with right ventricular systolic pressure of 11. Prorate Clerk was also consulted. And has anemia of iron deficiency due to gastritis. Anemia workup showed low ferritin consistent with iron deficiency anemia. There was no evidence of hemolysis. She was given IV iron supplements. Patient had elevated white count. Peripheral smear showed bandemia/neutrophilia. Leukocytosis eventually resolved. Potassium level was 3.3. She was given IV potassium replacement. Patient was anxious. Psychiatric evaluation was done. She was ordered Remeron. Full treatment was not carried out as patient left against medical advise. FINAL DIAGNOSES: GI bleed Peptic ulcer disease Possible esophageal varices Status post upper endoscopy on 04/24/2018 Gastritis Small lesion in the lesser curvature gastric mid wall of unknown significance Drop in hemoglobin requiring blood transfusion Anemia of iron deficiency due to gastritis Leukocytosis Tachycardia due to hypovolemia and electrolyte disorder Anxiety Hypokalemia Non-compliance as patient left AMA DISPOSITION: Patient left against medical advise. I have been assigned to dictate discharge summary on this account, and I was not involved in the patient's management. Cathryn Odell NP Apr 26, 2018 10:03
== END 2018-04-25 12:31 | disposition left against medical advice (07) | DRG 241 ==
LOC: EMR 14:32 → 2W 16:50 → EDBEDREQSVC 16:58 → EDBEDREQ 17:08 → 2E 04-24 15:20
PROC: 30233N1 Transfusion of Nonautologous Red Blood Cells into Peripheral Vein, Percutaneous Approach (ICD-10-PCS; 2018-04-24)
PROC: 0DB78ZX Excision of Stomach, Pylorus, Via Natural or Artificial Opening Endoscopic, Diagnostic (ICD-10-PCS; principal; 2018-04-24 12:55)
DX: K29.71 Gastritis, unspecified, with bleeding (principal); D89.9 Disorder involving the immune mechanism, unspecified; G61.81 Chronic inflammatory demyelinating polyneuritis; D50.9 Iron deficiency anemia, unspecified; E87.6 Hypokalemia; F10.20 Alcohol dependence, uncomplicated; F41.9 Anxiety disorder, unspecified; Z91.19 Patient's noncompliance with other medical treatment and regimen; K21.9 Gastro-esophageal reflux disease without esophagitis; Z87.891 Personal history of nicotine dependence; R00.0 Tachycardia, unspecified; K27.9 Peptic ulcer, site unspecified, unspecified as acute or chronic, without hemorrhage or perforation; K31.9 Disease of stomach and duodenum, unspecified; Z85.818 Personal history of malignant neoplasm of other sites of lip, oral cavity, and pharynx
CPT/HCPCS: 36415; 71045; 74177; 80048; 80053; 80076; 80307; 80329; 81003; 81025; 82247; 82248; 82270; 82550; 82553; 82607; 82728; 82746; 82977; 83540; 83550; 83605; 83615; 83735; 84100; 84165; 84443; 84484; 84702; 85007; 85025; 85044; 85060; 85384; 85610; 85660; 85730; 86710; 86850; 86900; 86901; 86920; 87040; 93005; 93306; 94003; 94150; 96361; 96365; 96375; 99291; J2250; J2405; J8499

== ENCOUNTER 2018-06-27 14:53 | Inpatient (IN) | payer OTHER ==
[~2018-06-27] VITALS: Ht 165.1 cm; Wt 53.6 kg
[~2018-06-27 14:53] MED LIST changes: +NORCO 10-325 T1 EACH ORAL
[2018-06-27 15:10] VITALS: BP 125/75
--- NOTE | 2018-06-27 15:15 | NUR ---
ED Nurse Note: Patient walked into ED accompanied by mom c/o abdominal pain. patient reports ingesting a mixture of olive oil and baking soda to ease her pain. Patient's heart rate was 140 at time of arrival and has had 3 episodes of clear vomit. patient is alert and oriented x4 ambulatory with a steady gait
[2018-06-27] MEDS ORDERED: Pantoprazole Inj IV ONE (16:00)
[2018-06-27] MEDS ORDERED: Isovue-300 100ml vial INJ PRN (16:00)
[2018-06-27] MEDS ORDERED: Morphine Sulfate 4mg/ml Inj (IV USE ONLY) IVP ONE ×2 (16:00→20:15)
[2018-06-27 16:25] LABS: BASOPHILS % (AUTO) 1.2 % (0.0-2.0); EOSINOPHILS % (AUTO) 0.6 % (0.0-3.0); HEMATOCRIT 37.1 % (37.0-47.0); HEMOGLOBIN 11.6 G/DL (12.0-16.0); LYMPHOCYTES % (AUTO) 10.2 % (20.0-45.0); MEAN CORPUSCULAR VOLUME 77 FL (80-99); MONOCYTES % (AUTO) 10.3 % (1.0-10.0); NEUTROPHILS % (AUTO) 77.7 % (45.0-75.0); PLATELET COUNT 513 K/UL (150-450); RED BLOOD COUNT 4.82 M/UL (4.20-5.40); RED CELL DISTRIBUTION WIDTH 18.7 % (11.6-14.8); WHITE BLOOD COUNT 7.2 K/UL (4.8-10.8)
[2018-06-27 16:31] LABS: APPEARANCE,URINE CLOUDY; BILIRUBIN, URINE 2+ (NEGATIVE); GLUCOSE, URINE (UA) NEGATIVE (NEGATIVE); KETONES,URINE NEGATIVE (NEGATIVE); LEUKOCYTE ESTERASE ,URINE 1+ (NEGATIVE); NITRITE,URINE NEGATIVE (NEGATIVE); PH,URINE 5 (4.5-8.0); PROTEIN,URINE 3+ (NEGATIVE); UROBILINOGEN,URINE 1 MG/DL (0.0-1.0)
[2018-06-27 16:33] LABS: COLOR,URINE AMBER
[2018-06-27 16:34] LABS: ANION GAP 19 mmol/L (5-15); BLOOD UREA NITROGEN 55 mg/dL (7-18); CALCIUM 9.7 MG/DL (8.5-10.1); CARBON DIOXIDE 24 MMOL/L (21-32); CHLORIDE 90 MMOL/L (98-107); CREATININE 3.3 MG/DL (0.55-1.30); POTASSIUM 3.3 MMOL/L (3.5-5.1); SODIUM 133 MMOL/L (136-145)
[2018-06-27 16:39] LABS: ALANINE AMINOTRANSFERASE 22 U/L (12-78); ALBUMIN 3.4 G/DL (3.4-5.0); ALBUMIN/GLOBULIN RATIO 0.6 (1.0-2.7); ALKALINE PHOSPHATASE 127 U/L (46-116); ASPARTATE AMINO TRANSFERASE 34 U/L (15-37); BILIRUBIN,TOTAL 0.5 MG/DL (0.2-1.0)
[2018-06-27 16:40] LABS: INR 0.9 (0.9-1.1)
[2018-06-27] MEDS ORDERED: IBUPROFEN600 MG ORAL (18:12)
[2018-06-27] MEDS ORDERED: NORCO 5-325 TA1 EACH ORAL (18:12)
[2018-06-27] MEDS ORDERED: PREDNISONE10 MG ORAL (18:12)
[2018-06-27] MEDS ORDERED: Piperacillin/Tazobactam 3.375 GM in NS 110 ML IVPB ONE (19:00)
--- NOTE | 2018-06-27 19:00 | NUR ---
ED Nurse Note: Report received from Jamel RN, patient resting with friend at bedside. patien reports mild discomfort, ERMD aware.
[2018-06-27 19:30] VITALS: BP 139/67
[2018-06-27] MEDS ORDERED: Miralax 17gm pkt ORAL PRN (19:30)
[2018-06-27] MEDS ORDERED: Nitroglycerin Subl 0.4mg tab SL PRN (19:30)
[2018-06-27] MEDS ORDERED: Mylanta II UD 30ml ORAL PRN (19:30)
--- NOTE | 2018-06-27 19:30 | NUR ---
ED Nurse Note: Dr. Grady at bedside to obtain consent for surgery. ADRIEL Mccullough witness
[2018-06-27] MEDS: Morphine Sulfate 2mg/ml Inj(IV/IM USE ONLY) IVP PRN ×2 (20:09→20:11)
[2018-06-27] MEDS ORDERED: D5 1/2NS 1,000 ML IV SCH (20:30)
--- NOTE | 2018-06-27 20:33 | Consultation ---
History of Present Illness General Date patient seen: Jun 27, 2018 Chief Complaint: Generalized Weakness Reason for Consultation: abdominal pain Present Illness HPI This is a 47-year-old female with multiple medical comorbidities who presented to the emergency department at [facility] complaining of worsening abdominal pain. Patient states that approximately 2 weeks ago she began to have abdominal pain that she has been taking olive oil and baking soda for. States the pain has been worsening in the last 3 days has been significantly worse with persistent nausea and emesis. States the abdomen is become persistently more distended and she has had more discomfort. Patient and mother decided to come to the emergency department today for evaluation. In the emergency department she was identified to have a distended abdomen with significant tenderness. CT scan was performed which identified free air and fluid. Surgery called to evaluate. Electrolytes were normal, renal function insufficient, elevated platelets. Denies melena, denies bloody emesis, has not had a bowel movement in a few days. Of note patient is on chronic narcotics for neurologic pain as well as ibuprofen/NSAIDs, as well as prednisone. Allergies: Coded Allergies: No Known Allergies (Unverified , 01/11/13) Medication History Scheduled Ibuprofen* (Motrin*), 400 MG ORAL BID, (Reported) Prednisone* (Prednisone*), 10 MG ORAL DAILY, (Reported) Scheduled PRN Hydrocodone Bit/Acetaminophen 5-325* ([place] 5-325*), 1 TAB ORAL BID PRN for For Pain, (Reported) Patient History History Provided By: Patient, Family Member, Medical Record, PMD Healthcare decision maker Resuscitation status Advanced Directive on File Past Medical/Surgical History Past Medical/Surgical History: (1) Contusion of face (2) Contusion of lower leg (3) Rib contusion (4) Rib contusion (5) Encounter for removal of sutures (6) Gastric ulcer (7) Varices, esophageal (8) PUD (peptic ulcer disease) (9) Laceration (10) GI bleed Review of Systems Constitutional: Denies: no symptoms, see HPI, chills, sweats, fever, malaise, weakness, other Eye: Denies: no symptoms, see HPI, eye pain, blurred vision, tearing, double vision, nose pain, nose congestion, acuity changes, discharge, other ENT: Denies: no symptoms, see HPI, ear pain, ear discharge, nose pain, nose congestion, throat pain, throat swelling, mouth pain, hearing loss, nasal discharge, other Respiratory: Denies: no symptoms, see HPI, cough, orthopnea, shortness of breath, stridor, wheezing, YANG, sputum, other Cardiovascular: Denies: no symptoms, see HPI, chest pain, edema, palpitations, syncope, PND, other Gastrointestinal: Reports: abdominal pain, nausea, vomiting Genitourinary: Denies: no symptoms, see HPI, discharge, dysuria, frequency, hematuria, pain, retention, incontinence, urgency, vag bleed/dc, other Musculoskeletal: Denies: no symptoms, see HPI, back pain, gout, joint pain, joint swelling, muscle pain, muscle stiffness, other Skin: Denies: no symptoms, see HPI, rash, change in color, change in hair/nails , dryness, lesions, other Psychiatric: Denies: no symptoms, see HPI, prior hx, anxiety, depressed feelings, emotional problems, SI, HI, hallucinations, other Neurological: Denies: no symptoms, see HPI, headache, numbness, paresthesia, seizure, tingling, tremors, focal weakness, syncope, dizziness, other Endocrine: Denies: no symptoms, see HPI, excessive sweating, flushing, intolerance to temperature, increased thirst, increased urine, unexplained weight loss, other Hematologic/Lymphatic: Denies: no symptoms, see HPI, anemia, blood clots, easy bleeding, easy bruising, swollen glands, diathesis, other Physical Exam General Appearance: mild distress Lines, tubes and drains: peripheral HEENT: normocephalic, atraumatic Neck: normal inspection Respiratory/Chest: normal breath sounds, no respiratory distress, no accessory muscle use Cardiovascular/Chest: tachycardia Abdomen: soft, hypoactive bowel sounds, distended, guarding, rebound, tender Extremities: normal inspection Skin Exam: warm/dry Neurologic: alert, oriented x 3 Last 24 Hour Vital Signs Date Time Temp Pulse Resp B/P (MAP) Pulse Ox O2 Delivery O2 Flow Rate FiO2 06/27/18 19:30 99.2 135 24 139/67 96 Room Air 06/27/18 16:38 99.2 06/27/18 15:10 98.8 135 24 125/75 96 Room Air 06/27/18 15:10 137 24 Room Air 06/27/18 15:07 98.8 166 24 96/73 96 Room Air Laboratory Tests Test 06/27/18 15:55 White Blood Count 7.2 K/UL (4.8-10.8) Red Blood Count 4.82 M/UL (4.20-5.40) Hemoglobin 11.6 G/DL (12.0-16.0) L Hematocrit 37.1 % (37.0-47.0) Mean Corpuscular Volume 77 FL (80-99) L Mean Corpuscular Hemoglobin 24.0 PG (27.0-31.0) L Mean Corpuscular Hemoglobin Concent 31.2 G/DL (32.0-36.0) L Red Cell Distribution Width 18.7 % (11.6-14.8) H Platelet Count 513 K/UL (150-450) H Mean Platelet Volume 6.3 FL (6.5-10.1) L Neutrophils (%) (Auto) 77.7 % (45.0-75.0) H Lymphocytes (%) (Auto) 10.2 % (20.0-45.0) L Monocytes (%) (Auto) 10.3 % (1.0-10.0) H Eosinophils (%) (Auto) 0.6 % (0.0-3.0) Basophils (%) (Auto) 1.2 % (0.0-2.0) Prothrombin Time 9.1 SEC (9.30-11.50) L Prothromb Time International Ratio 0.9 (0.9-1.1) Activated Partial Thromboplast Time 26 SEC (23-33) Urine Color Ludivina Urine Appearance Cloudy Urine pH 5 (4.5-8.0) Urine Specific [place] 1.020 (1.005-1.035) Urine Protein 3+ (NEGATIVE) H Urine Glucose (UA) Negative (NEGATIVE) Urine Ketones Negative (NEGATIVE) Urine Blood 2+ (NEGATIVE) H Urine Nitrite Negative (NEGATIVE) Urine Bilirubin 2+ (NEGATIVE) H Urine Ictotest Negative (NEGATIVE) Urine Urobilinogen 1 MG/DL (0.0-1.0) H Urine Leukocyte Esterase 1+ (NEGATIVE) H Urine RBC 2-4 /HPF (0 - 2) H Urine WBC 2-4 /HPF (0 - 2) Urine Squamous Epithelial Cells Many /LPF (NONE/OCC) H Urine Bacteria Many /HPF (NONE) H Sodium Level 133 MMOL/L (136-145) L Potassium Level 3.3 MMOL/L (3.5-5.1) L Chloride Level 90 MMOL/L (98-107) L Carbon Dioxide Level 24 MMOL/L (21-32) Anion Gap 19 mmol/L (5-15) H Blood Urea Nitrogen 55 mg/dL (7-18) H Creatinine 3.3 MG/DL (0.55-1.30) H Estimat Glomerular Filtration Rate 18.2 mL/min (>60) Glucose Level 133 MG/DL (74-106) H Calcium Level 9.7 MG/DL (8.5-10.1) Total Bilirubin 0.5 MG/DL (0.2-1.0) Aspartate Amino Transf (AST/SGOT) 34 U/L (15-37) Alanine Aminotransferase (ALT/SGPT) 22 U/L (12-78) Alkaline Phosphatase 127 U/L (46-116) H Total Protein 9.4 G/DL (6.4-8.2) H Albumin 3.4 G/DL (3.4-5.0) Globulin 6.0 g/dL Albumin/Globulin Ratio 0.6 (1.0-2.7) L Lipase 321 U/L (73-393) Human Chorionic Gonadotropin, Qual Negative (NEGATIVE) Height (Feet): 5 Height (Inches): 5.00 Weight (Pounds): 120 Medications Current Medications Medications (Trade) Dose Ordered Sig/Marisol Route PRN Reason Start Time Stop Time Status Last Admin Dose Admin Acetaminophen (Tylenol) 650 mg Q4H PRN ORAL fever 06/27/18 19:30 07/27/18 19:29 Al Hydroxide/Mg Hydroxide (Mylanta II) 30 ml Q6H PRN ORAL dyspepsia 06/27/18 19:30 07/27/18 19:29 Dextrose (Dextrose 50%) 25 ml Q30M PRN IV Hypoglycemia 06/27/18 19:30 07/27/18 19:29 Dextrose (Dextrose 50%) 50 ml Q30M PRN IV Hypoglycemia 06/27/18 19:30 07/27/18 19:29 Dextrose/Sodium Chloride 1,000 ml @ 75 mls/hr [id number] IV 06/27/18 20:30 07/27/18 20:29 Diphenhydramine HCl (Benadryl) 25 mg Q6H PRN ORAL Itching/Pruritis 06/27/18 19:30 07/27/18 19:29 Heparin Sodium (Porcine) (Heparin 5000 units/ml) 5,000 units EVERY 12 HOURS SUBQ 06/28/18 09:00 07/28/18 08:59 Iopamidol (Isovue-300 100ml) 100 ml NOW PRN INJ Radiology Procedure 06/27/18 16:00 Morphine Sulfate (Morphine Sulfate) 2 mg Q4H PRN IVP severe Pain (Pain Scale 7-10) 06/27/18 19:30 07/04/18 19:29 06/27/18 20:09 Nitroglycerin (Ntg) 0.4 mg Q5M X 3 DOSES PRN SL Prn Chest Pain 06/27/18 19:30 07/27/18 19:29 Ondansetron HCl (Zofran) 4 mg Q6H PRN IVP Nausea & Vomiting 06/27/18 19:30 07/27/18 19:29 Pantoprazole (Protonix) 40 mg DAILY IVP 06/28/18 09:00 07/28/18 08:59 Polyethylene Glycol (Miralax) 17 gm HSPRN PRN ORAL Constipation 06/27/18 19:30 07/27/18 19:29 Temazepam (Restoril) 15 mg HSPRN PRN ORAL Insomnia 06/27/18 19:30 07/04/18 19:29 Assessment/Plan Problem List: (1) Perforated abdominal viscus SNOMED: 282447380 (2) Bowel perforation Assessment & Plan: This is a 47-year-old female with likely perforated viscus. Afebrile, tachycardic, abnormal electrolytes, abdominal tenderness with rebound guarding and peritonitis, CT scan with free air and fluid consistent with perforated viscus. Patient is on chronic narcotics, NSAIDs, steroids. Long discussion was had with patient and her mother regarding the condition and current findings and above details. Given her clinical findings and physical examination surgery is indicated and recommended. CT was reviewed with the radiologist and area of perforation cannot easily be identified. Recommend expiratory laparotomy with possible bowel resection possible ostomy I explained to the patient and her mother given her history and medication history that she is at high risk for complications including but not limited to infection bleeding poor wound healing poor anastomotic healing dehiscence open wound open abdomen reoperation. I explained to them that she will require intubation for the procedure and potentially may stay intubated postoperatively given how septic she is currently. We discussed the significant morbidity and potential mortality of her condition as well as operative management. Patient and mother expressed understanding and consented to procedure which will be performed immediately. Consent NPO IV Fluids IV ABx to OR thank you ICD Codes: K63.1 - Perforation of intestine (nontraumatic) SNOMED: 46962765 (3) Abdominal pain ICD Codes: R10.9 - Unspecified abdominal pain SNOMED: 11932743 (4) Surgical pneumoperitoneum ICD Codes: K66.8 - Other specified disorders of peritoneum SNOMED: 12603644 Maurice Grady Jun 27, 2018 20:33
--- NOTE | 2018-06-27 20:35 | Anethesia Preoperative Eval ---
Anesthesia Pre-op PMH/ROS General Date of Evaluation: Jun 27, 2018 Time of Evaluation: 20:41 Anesthesiologist: Isaias ASA Score: ASA 3 - Emegency Mallampati Score Class I : Soft palate, uvula, fauces, pillars visible Class II: Soft palate, uvula, fauces visible Class III: Soft palate, base of uvula visible Class IV: Only hard plate visible Mallampati Classification: Class III Surgeon: Miguel A Diagnosis: Abdominal Obstruction Surgical Procedure: Exploratory Laparotomy Anesthesia History: none Social History: alcohol use, drug use - marijuana Family History: no anesthesia problems Allergies: Coded Allergies: No Known Allergies (Unverified , 01/11/13) Medications: see eMAR Patient NPO?: Yes Past Medical History Gastrointestinal/Genitourinary: Reports: GERD Neurologic/Psychiatric: Reports: depression/anxiety, other - Seizures, Demyelinating Disease Hematology/Immune: Reports: anemia PMH Narrative: Multiple Comorbidities Anesthesia Pre-op Phys. Exam Physician Exam Last Vital Signs Date Time Temp Pulse Resp B/P (MAP) Pulse Ox O2 Delivery O2 Flow Rate FiO2 06/27/18 19:30 99.2 135 24 139/67 96 Room Air Constitutional: NAD Neurologic: CN 2-12 intact Cardiovascular: RRR Respiratory: CTA Gastrointestinal: S/NT/ND Airway Exam Mallampati Score: Class III MO: limited ROM: limited Teeth: missing, intact Anesthesia Pre-op A/P Labs Hematology Test 06/27/18 15:55 White Blood Count 7.2 K/UL (4.8-10.8) Red Blood Count 4.82 M/UL (4.20-5.40) Hemoglobin 11.6 G/DL (12.0-16.0) L Hematocrit 37.1 % (37.0-47.0) Mean Corpuscular Volume 77 FL (80-99) L Mean Corpuscular Hemoglobin 24.0 PG (27.0-31.0) L Mean Corpuscular Hemoglobin Concent 31.2 G/DL (32.0-36.0) L Red Cell Distribution Width 18.7 % (11.6-14.8) H Platelet Count 513 K/UL (150-450) H Mean Platelet Volume 6.3 FL (6.5-10.1) L Neutrophils (%) (Auto) 77.7 % (45.0-75.0) H Lymphocytes (%) (Auto) 10.2 % (20.0-45.0) L Monocytes (%) (Auto) 10.3 % (1.0-10.0) H Eosinophils (%) (Auto) 0.6 % (0.0-3.0) Basophils (%) (Auto) 1.2 % (0.0-2.0) Coagulation Test 06/27/18 15:55 Prothrombin Time 9.1 SEC (9.30-11.50) L Prothromb Time International Ratio 0.9 (0.9-1.1) Activated Partial Thromboplast Time 26 SEC (23-33) Chemistry Test 06/27/18 15:55 Sodium Level 133 MMOL/L (136-145) L Potassium Level 3.3 MMOL/L (3.5-5.1) L Chloride Level 90 MMOL/L (98-107) L Carbon Dioxide Level 24 MMOL/L (21-32) Anion Gap 19 mmol/L (5-15) H Blood Urea Nitrogen 55 mg/dL (7-18) H Creatinine 3.3 MG/DL (0.55-1.30) H Estimat Glomerular Filtration Rate 18.2 mL/min (>60) Glucose Level 133 MG/DL (74-106) H Calcium Level 9.7 MG/DL (8.5-10.1) Total Bilirubin 0.5 MG/DL (0.2-1.0) Aspartate Amino Transf (AST/SGOT) 34 U/L (15-37) Alanine Aminotransferase (ALT/SGPT) 22 U/L (12-78) Alkaline Phosphatase 127 U/L (46-116) H Total Protein 9.4 G/DL (6.4-8.2) H Albumin 3.4 G/DL (3.4-5.0) Globulin 6.0 g/dL Albumin/Globulin Ratio 0.6 (1.0-2.7) L Lipase 321 U/L (73-393) Human Chorionic Gonadotropin, Qual Negative (NEGATIVE) Serum Test Test 06/27/18 15:55 Human Chorionic Gonadotropin, Qual Negative (NEGATIVE) Risk Assessment & Plan Assessment: ASA 3E Plan: GA, GlideScope Go, SED Status Change Before Surgery: No Pre-Antibiotics Given Within 1 Hr of Incision: Yes Giancarlo Esparza MD Jun 27, 2018:35
[2018-06-27] MEDS ORDERED: Propofol 1,000mg/ 100ml btl IV ONE (20:45)
[2018-06-27] MEDS ORDERED: LR 1000ml ONE (20:45)
[2018-06-27] MEDS ORDERED: Lidocaine 1% MPF 10mg/ml 5ml ONE (20:46)
[2018-06-27] MEDS ORDERED: Sodium Chloride 10ml vial INJ ONE (20:46)
[2018-06-27] MEDS ORDERED: fentaNYL 100 mcg/2 mL IV ONE (20:46)
[2018-06-27] MEDS ORDERED: Dexamethasone 4mg/ml vial ONE (20:46)
[2018-06-27] MEDS ORDERED: Midazolam 2mg/2ml Inj ONE (20:47)
--- NOTE | 2018-06-27 20:48 | NUR ---
ED Nurse Note: Patient transported by Surgery RN, blood transfusion consent signed and witnessed along with surgery and anesthesia consent. Report given SXMD escorted family.
--- NOTE | 2018-06-27 20:51 | Pre-Procedure Note/Attestation ---
Pre-Procedure Note/Attestation Complete Prior to Procedure Planned Procedure: not applicable Procedure Narrative: exploratory laparotomy, possible bowel resection, possible ostomy Indications for Procedure Pre-Operative Diagnosis: perforated viscus Attestation I attest that I discussed the nature of the procedure; its benefits; risks and complications; and alternatives (and the risks and benefits of such alternatives ), prior to the procedure, with the patient (or the patient's legal sales representative cash registers). I attest that, if there was a reasonable possibility of needing a blood transfusion, the patient (or the patient's legal sales representative cash registers) was given the [facility] standardized written summary, pursuant to the Ariel Thaddeus Blood Safety Act ([place] Health and Safety Code # 1645, as amended). I attest that I re-evaluated the patient just prior to the surgery and that there has been no change in the patient's H&P, except as documented below: Maurice Grady Jun 27, 2018 20:51
[2018-06-27] MEDS ORDERED: Lidocaine 1% Plain 30 ml INJ ONE (20:53)
[2018-06-27] MEDS ORDERED: NS Irrig 1000ml IRRIG ONE (21:15)
--- NOTE | 2018-06-27 21:18 | Emergency Room Report ---
History of Present Illness General Chief Complaint: Generalized Weakness Source: Patient, Family Member, Medical Record, PMD Present Illness HPI 47-year-old female presents to the ED for evaluation. Complaining of abdominal pain and vomiting. She had an upset stomach a few weeks ago and started taking baking soda with olive oil as recommended by her aesthetitician. states symptoms got worse. Pain is sharp, 10 out of 10, nonradiating. Denies fevers chills. History of GI bleed. Denies any rectal bleeding. Denies any hematemesis. No other aggravating relieving factors. 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 Hx Seizures: Yes Review of Systems All Other Systems: negative except mentioned in HPI Physical Exam Vital Signs Date Time Temp Pulse Resp B/P (MAP) Pulse Ox O2 Delivery O2 Flow Rate FiO2 06/27/18 15:07 98.8 166 24 96/73 96 Room Air Sp02 EP Interpretation: reviewed, normal General Appearance: alert, GCS 15, non-toxic, mild distress Head: normocephalic, atraumatic Eyes: bilateral eye normal inspection, bilateral eye PERRL ENT: hearing grossly normal, normal pharynx, no angioedema, normal voice Neck: full range of motion, supple/symm/no masses Respiratory: chest non-tender, lungs clear, normal breath sounds, speaking full sentences Cardiovascular #1: no edema, tachycardia Cardiovascular #2: 2+ carotid (R), 2+ carotid (L), 2+ radial (R), 2+ radial (L) , 2+ dorsalis pedis (R), 2+ dorsalis pedis (L) Gastrointestinal: normal bowel sounds, distended, tenderness Rectal: deferred Genitourinary: normal inspection, no CVA tenderness Musculoskeletal: back normal, gait/station normal, normal range of motion, non- tender Neurologic: alert, oriented x3, responsive, motor strength/tone normal, sensory intact, speech normal Psychiatric: judgement/insight normal, memory normal, mood/affect normal, no suicidal/homicidal ideation Reflexes: 3+ bicep (R), 3+ bicep (L), 3+ tricep (R), 3+ tricep (L), 3+ knee (R) , 3+ knee (L) Skin: normal color, no rash, warm/dry, well hydrated Lymphatic: no adenopathy Medical Decision Making Diagnostic Impression: Primary Impression: Bowel perforation Additional Impressions: Renal failure Qualified Codes: N17.9 - Acute kidney failure, unspecified Surgical pneumoperitoneum ER Course Hospital Course 47-year-old female presents with abdominal distention and pain Differential diagnoses include: BPH, cystitis, pyelonephritis, kidney stone Clinical course Patient placed on stretcher. night monitor. After initial history and physical I ordered labs, IV fluids, UA, pain medication and CT scan Labs - no leukocytosis, Hb/Hct stable, BUN/Cr elevated EKG - sinus tachycardia, no acute ischemci changes interpreted by me CT abdomen and pelvis - pneumoperitoneum, likely perforated bowel zosyn given. discussed findings with patient at bedside to evaluate patient - patient will require operative intervention Case discussed with Dr. Pelletier and he agreed to accept the patient to his service for further care and support I feel this is a highly complex case requiring extensive working including EKG/ Rhythm strip, Xray/CT/US, Blood/urine lab work, repeat exams while in ED, and administration of strong opiates/narcotics for pain control, admission to hospital or close patient follow up. Diagnosis - pneumoperitoneum, renal failure, bowel perforation admitted to telemetry in serious condition Labs Test 06/27/18 15:55 White Blood Count 7.2 K/UL (4.8-10.8) Red Blood Count 4.82 M/UL (4.20-5.40) Hemoglobin 11.6 G/DL (12.0-16.0) Hematocrit 37.1 % (37.0-47.0) Mean Corpuscular Volume 77 FL (80-99) Mean Corpuscular Hemoglobin 24.0 PG (27.0-31.0) Mean Corpuscular Hemoglobin Concent 31.2 G/DL (32.0-36.0) Red Cell Distribution Width 18.7 % (11.6-14.8) Platelet Count 513 K/UL (150-450) Mean Platelet Volume 6.3 FL (6.5-10.1) Neutrophils (%) (Auto) 77.7 % (45.0-75.0) Lymphocytes (%) (Auto) 10.2 % (20.0-45.0) Monocytes (%) (Auto) 10.3 % (1.0-10.0) Eosinophils (%) (Auto) 0.6 % (0.0-3.0) Basophils (%) (Auto) 1.2 % (0.0-2.0) Prothrombin Time 9.1 SEC (9.30-11.50) Prothromb Time International Ratio 0.9 (0.9-1.1) Activated Partial Thromboplast Time 26 SEC (23-33) Urine Color Ludivina Urine Appearance Cloudy Urine pH 5 (4.5-8.0) Urine Specific [place] 1.020 (1.005-1.035) Urine Protein 3+ (NEGATIVE) Urine Glucose (UA) Negative (NEGATIVE) Urine Ketones Negative (NEGATIVE) Urine Blood 2+ (NEGATIVE) Urine Nitrite Negative (NEGATIVE) Urine Bilirubin 2+ (NEGATIVE) Urine Ictotest Negative (NEGATIVE) Urine Urobilinogen 1 MG/DL (0.0-1.0) Urine Leukocyte Esterase 1+ (NEGATIVE) Urine RBC 2-4 /HPF (0 - 2) Urine WBC 2-4 /HPF (0 - 2) Urine Squamous Epithelial Cells Many /LPF (NONE/OCC) Urine Bacteria Many /HPF (NONE) Sodium Level 133 MMOL/L (136-145) Potassium Level 3.3 MMOL/L (3.5-5.1) Chloride Level 90 MMOL/L (98-107) Carbon Dioxide Level 24 MMOL/L (21-32) Anion Gap 19 mmol/L (5-15) Blood Urea Nitrogen 55 mg/dL (7-18) Creatinine 3.3 MG/DL (0.55-1.30) Estimat Glomerular Filtration Rate 18.2 mL/min (>60) Glucose Level 133 MG/DL (74-106) Calcium Level 9.7 MG/DL (8.5-10.1) Total Bilirubin 0.5 MG/DL (0.2-1.0) Aspartate Amino Transf (AST/SGOT) 34 U/L (15-37) Alanine Aminotransferase (ALT/SGPT) 22 U/L (12-78) Alkaline Phosphatase 127 U/L (46-116) Total Protein 9.4 G/DL (6.4-8.2) Albumin 3.4 G/DL (3.4-5.0) Globulin 6.0 g/dL Albumin/Globulin Ratio 0.6 (1.0-2.7) Lipase 321 U/L (73-393) Human Chorionic Gonadotropin, Qual Negative (NEGATIVE) EKG Diagnostic Results Rate: tachycardiac Rhythm: NSR ST Segments: no acute changes ASA given to the pt in ED: No Rhythm Strip Diag. Results EP Interpretation: yes Rhythm: NSR, no PVC's, no ectopy CT/MRI/US Diagnostic Results CT/MRI/US Diagnostic Results : Imaging Test Ordered: CT A/P Impression Examination is limited by lack of intravenous contrast. Pneumoperitoneum is concerning for bowel perforation. The site of perforation is unclear. Small amount of free fluid. No loculated fluid collection. No extravasated enteric contrast. Small hiatal hernia. Appendix is within normal limits. Last Vital Signs Date Time Temp Pulse Resp B/P (MAP) Pulse Ox O2 Delivery O2 Flow Rate FiO2 06/27/18 20:52 99.2 135 24 139/67 96 Room Air Status: improved Disposition: ADMITTED INPATIENT Condition: Serious Referrals: NOT CHOSEN IPA/,REFERRING (PCP) Sacha Brar MD Jun 27, 2018 21:18
[2018-06-27] MEDS ORDERED: Pantoprazole Inj ONE (23:38)
[2018-06-27] MEDS ORDERED: Zosyn 2.25gm inj ONE (23:38)
[2018-06-28] VITALS (19 sets, daily range): BP systolic 115–157; BP diastolic 59–133
[2018-06-28] MEDS ORDERED: Morphine Sulfate 2mg/ml Inj(IV/IM USE ONLY) ONE ×5 (00:16→05:42)
[2018-06-28] MEDS ORDERED: Midazolam 2mg/2ml Inj ONE ×3 (00:51→08:00)
[2018-06-28] MEDS ORDERED: Piperacillin/Tazobactam 2.25 GM in NS 110 ML IVPB ONE (01:30)
[2018-06-28] MEDS: Morphine Sulfate 2mg/ml Inj(IV/IM USE ONLY) IVP PRN ×3 (05:47→18:33)
--- NOTE | 2018-06-28 06:00 | NUR ---
RESPIRATORY NOTE: Pt came in from OR last night, MD Miguel A decided to keep pt intubated after surgery. Pt was intubated in OR w/ ETT 7.5 @ 22cm lipline, secured by anchorfast. Pt placed on ventilator w/ settings: AC 12, 500VT, 100%, PEEP +5. FiO2 to be titrated. Pt is slowly coming off sedation, responds to stimuli. Bite block was in place upon arrival at unit. Both hands on soft restraints to prevent pt from self-extubation. B/S carmelita. clear, nonproductive cough, sxn scant amounts of thin, clear/white secretions. Vent plugged into red outlet, ambubag at bedside. Pt tolerating settings well, in no apparent distress at this time. Will continue to monitor pt. (Please refer to paper charting).
[2018-06-28 06:14] LABS: HEMATOCRIT 28.5 % (37.0-47.0); MEAN CORPUSCULAR VOLUME 76 FL (80-99); PLATELET COUNT 428 K/UL (150-450); RED BLOOD COUNT 3.77 M/UL (4.20-5.40); RED CELL DISTRIBUTION WIDTH 19.3 % (11.6-14.8); WHITE BLOOD COUNT 14.3 K/UL (4.8-10.8)
--- NOTE | 2018-06-28 06:20 | NUR ---
NURSE NOTES: PATIENT SLEEPING STATUS, ON ETT TO VENT AC 12/TV500/FIO2 50%/PEEP5, O2 SATURATION 98%, NGT TO RIGHT NARES, INTACT AND PATENT, DARK GREENISH DISCHARGE OUTED ON LOWER INTERMITTENT SUCTION, ABDOMINAL SX SITE CLEANED AND DRIED DRESSING STATUS, NO N/V NOTED AT THIS SHIFT, HYPOACTIVE BOWEL SOUND, NO BOWEL MOVEMENT, F/C INTACT AND PATENT, YELLOW URINE DRAINING GRAVITY, PERIPHERAL LINE TO RIGHT FOREARM AND LEFT AC 20G INTACT AND PATENT, KEPT 2 POINT SOFT RESTRAINTS FOR SAFETY, MADE LOWER BED POSITION AND PROVIDED CALL LIGHT WITHIN REACH, WILL CONTINUE TO MONITOR.
[2018-06-28 06:32] LABS: ALANINE AMINOTRANSFERASE 21 U/L (12-78); ALBUMIN 2.3 G/DL (3.4-5.0); ALBUMIN/GLOBULIN RATIO 0.5 (1.0-2.7); ALKALINE PHOSPHATASE 82 U/L (46-116); AMYLASE 72 U/L (25-115); ANION GAP 15 mmol/L (5-15); ASPARTATE AMINO TRANSFERASE 43 U/L (15-37); BILIRUBIN,TOTAL 0.6 MG/DL (0.2-1.0); BLOOD UREA NITROGEN 37 mg/dL (7-18); CALCIUM 8.2 MG/DL (8.5-10.1); CARBON DIOXIDE 21 MMOL/L (21-32); CHLORIDE 102 MMOL/L (98-107); CREATININE 1.5 MG/DL (0.55-1.30); POTASSIUM 3.4 MMOL/L (3.5-5.1); SODIUM 138 MMOL/L (136-145)
--- NOTE | 2018-06-28 07:00 | NUR ---
Received Patient on Vent RR 12, VT 500, FIO2 50%, PEEP +5. Patient intubated with a 7.5 ETT at 22cm at the lip. Patient alert and awake lying comfortably in bed. Breath sounds reveal diminished clear throughout both lung chavarria. Alarms on and audible. Vent plugged into red outlet. Will continue to monitor patient throughout the day.
--- NOTE | 2018-06-28 07:31 | Immediate Post-Op Evaluation ---
Immediate Post-Op Evalulation Immediate Post-Op Evalulation Procedure: Exploratory Laparotomy, Repair Gastric Ulcer Date of Evaluation: Jun 28, 2018 Time of Evaluation: 21:57 IV Fluids: 500 LR Blood Products: 0 Estimated Blood Loss: 50 Urinary Output: 0 Blood Pressure Systolic: 164 Blood Pressure Diastolic: 75 Pulse Rate: 132 Respiratory Rate: 12 - Mec Vent O2 Sat by Pulse Oximetry: 100 Temperature (Fahrenheit): 99.2 Pain Score (1-10): 0 Nausea: No Vomiting: No Complications 0 Patient Status: no response, patent, ventilated, none Hydration Status: adequate Dru gram Ancef IV Time Given: 20:01 Giancarlo Esparza MD Jun 28, 2018 07:31
--- NOTE | 2018-06-28 07:35 | NUR ---
NURSE NOTES: Received report from [place]. Pt awakens to name, very anxious. Reoriented pt to surroundings, AO/X4. Pt intubated ETT 7.5 @ 22cm @ lipline, ventilator settings AC 12, 500VT, 50%, PEEP 5. Productive cough, scant white secretions. Bite block was in place. Abdomen distended, tender to touch. Bowel sounds absent. No bm and pt NPO. abdominal dressing in place, dry and intact. pt c/o 10/16. Oliveira cath draining yellow urine. Bilateral soft restraints noted. Fall precautions in place Will continue to monitor pt.
--- NOTE | 2018-06-28 07:40 | NUR ---
HAND-OFF: Report given to ADRIEL TSE.
[2018-06-28] MEDS: LR 1000ml 1,000 ML IV SCH ×4 (08:00→23:54)
--- NOTE | 2018-06-28 08:05 | NUR ---
NURSE NOTES: versed 1mg qhr administered pt very anxious, fighting vent and biting tubing. C.N aware.
[2018-06-28] MEDS: Heparin 5000 units/ml inj SUBQ SCH ×2 (09:00→21:00)
[2018-06-28] MEDS ORDERED: Pantoprazole Inj IVP SCH (09:00)
[2018-06-28] MEDS: Piperacillin/Tazobactam 2.25 GM in D5W 55 ML IVPB SCH ×4 (09:21→23:55)
--- NOTE | 2018-06-28 10:23 | Pulmonolgy Critical Care Note ---
Critical Care - Asmt/Plan Problems: (1) Perforated abdominal viscus (2) ATN (acute tubular necrosis) (3) Peritonitis (4) Gastric ulcer Respiratory: monitor respiratory rate, adjust FIO2, weaning trial Renal: F/U I&O, keep IV fluid, other - on liter NS, K supplement Infectious Disease: check cultures, continue antibiotics Gastrointestinal: continue feedings/current rate Endocrine: monitor blood sugar Neurologic: PRN Ativan Prophylaxis: Protonix Disposition: keep in ICU Notes Reviewed: jig fitter, cardio, renal Discussed with: nurses, consultants, renal case managermanager copy - Objective Last 24 Hour Vital Signs Date Time Temp Pulse Resp B/P (MAP) Pulse Ox O2 Delivery O2 Flow Rate FiO2 06/28/18 09:28 124 23 50 06/28/18 07:34 132 12 100 06/28/18 07:23 118 20 50 06/28/18 07:00 120 20 115/68 (84) 98 06/28/18 06:00 123 20 120/70 (87) 98 06/28/18 05:00 99.8 123 21 130/84 (99) 99 06/28/18 04:14 124 06/28/18 04:00 60 06/28/18 00:32 149 06/28/18 00:00 Mechanical Ventilator 06/27/18 20:52 99.2 135 24 139/67 96 Room Air 06/27/18 19:30 99.2 135 24 139/67 96 Room Air 06/27/18 16:38 99.2 06/27/18 15:10 98.8 135 24 125/75 96 Room Air 06/27/18 15:10 137 24 Room Air 06/27/18 15:07 98.8 166 24 96/73 96 Room Air Status: awake Condition: critical HEENT: atraumatic Heart: HR/BP stable Abdomen: soft, active bowel sounds, feeding tube Extremities: edema Micro: Microbiology Date/Time Source Procedure Growth Status 06/27/18 15:55 Urine,Clean Catch Urine Culture - Preliminary NO GROWTH Resulted Critical Care - Subjective ROS Limited/Unobtainable: Yes ICU Day: 1 Interval Events: 47 year old female with hx of chronic pain, presented to ER with CC of abdominal pain. She was diagnosed to have perforated viscus, showing up on CT abdomen as fee air. she underwent Exploratory Laparotomy, Repair Gastric Ulcer. Post operatively she is transferred to ICU for post-op care. FI02: 50 Vent Support Breath Rate: 12 Vent Support Mode: AC Vent Tidal Volume: 500 Sputum Amount: Small PEEP: 5.0 PIP: 27 I&O: Intake and Output 06/27/18 06/28/18 19:00 07:00 Intake Total 210 ml Output Total 1030 ml Balance -820 ml Intake IV Total 210 ml Output Urine Total 1010 ml Gastric Drainage Total 20 ml # Voids 1 ET-Tube: 7.5 ET Position: 22 Labs: Laboratory Tests Test 06/27/18 15:55 06/28/18 05:55 White Blood Count 7.2 K/UL (4.8-10.8) 14.3 K/UL (4.8-10.8) #H Red Blood Count 4.82 M/UL (4.20-5.40) 3.77 M/UL (4.20-5.40) L Hemoglobin 11.6 G/DL (12.0-16.0) L 9.0 G/DL (12.0-16.0) L Hematocrit 37.1 % (37.0-47.0) 28.5 % (37.0-47.0) L Mean Corpuscular Volume 77 FL (80-99) L 76 FL (80-99) L Mean Corpuscular Hemoglobin 24.0 PG (27.0-31.0) L 23.8 PG (27.0-31.0) L Mean Corpuscular Hemoglobin Concent 31.2 G/DL (32.0-36.0) L 31.5 G/DL (32.0-36.0) L Red Cell Distribution Width 18.7 % (11.6-14.8) H 19.3 % (11.6-14.8) H Platelet Count 513 K/UL (150-450) H 428 K/UL (150-450) Mean Platelet Volume 6.3 FL (6.5-10.1) L 6.2 FL (6.5-10.1) L Neutrophils (%) (Auto) 77.7 % (45.0-75.0) H % (45.0-75.0) Lymphocytes (%) (Auto) 10.2 % (20.0-45.0) L % (20.0-45.0) Monocytes (%) (Auto) 10.3 % (1.0-10.0) H % (1.0-10.0) Eosinophils (%) (Auto) 0.6 % (0.0-3.0) % (0.0-3.0) Basophils (%) (Auto) 1.2 % (0.0-2.0) % (0.0-2.0) Prothrombin Time 9.1 SEC (9.30-11.50) L Prothromb Time International Ratio 0.9 (0.9-1.1) Activated Partial Thromboplast Time 26 SEC (23-33) 34 SEC (23-33) H Urine Color Ludivina Urine Appearance Cloudy Urine pH 5 (4.5-8.0) Urine Specific [place] 1.020 (1.005-1.035) Urine Protein 3+ (NEGATIVE) H Urine Glucose (UA) Negative (NEGATIVE) Urine Ketones Negative (NEGATIVE) Urine Blood 2+ (NEGATIVE) H Urine Nitrite Negative (NEGATIVE) Urine Bilirubin 2+ (NEGATIVE) H Urine Ictotest Negative (NEGATIVE) Urine Urobilinogen 1 MG/DL (0.0-1.0) H Urine Leukocyte Esterase 1+ (NEGATIVE) H Urine RBC 2-4 /HPF (0 - 2) H Urine WBC 2-4 /HPF (0 - 2) Urine Squamous Epithelial Cells Many /LPF (NONE/OCC) H Urine Bacteria Many /HPF (NONE) H Sodium Level 133 MMOL/L (136-145) L 138 MMOL/L (136-145) Potassium Level 3.3 MMOL/L (3.5-5.1) L 3.4 MMOL/L (3.5-5.1) L Chloride Level 90 MMOL/L (98-107) L 102 MMOL/L (98-107) Carbon Dioxide Level 24 MMOL/L (21-32) 21 MMOL/L (21-32) Anion Gap 19 mmol/L (5-15) H 15 mmol/L (5-15) Blood Urea Nitrogen 55 mg/dL (7-18) H 37 mg/dL (7-18) H Creatinine 3.3 MG/DL (0.55-1.30) H 1.5 MG/DL (0.55-1.30) #H Estimat Glomerular Filtration Rate 18.2 mL/min (>60) 45.1 mL/min (>60) Glucose Level 133 MG/DL (74-106) H 133 MG/DL (74-106) H Calcium Level 9.7 MG/DL (8.5-10.1) 8.2 MG/DL (8.5-10.1) L Total Bilirubin 0.5 MG/DL (0.2-1.0) 0.6 MG/DL (0.2-1.0) Aspartate Amino Transf (AST/SGOT) 34 U/L (15-37) 43 U/L (15-37) H Alanine Aminotransferase (ALT/SGPT) 22 U/L (12-78) 21 U/L (12-78) Alkaline Phosphatase 127 U/L (46-116) H 82 U/L (46-116) Total Protein 9.4 G/DL (6.4-8.2) H 6.9 G/DL (6.4-8.2) Albumin 3.4 G/DL (3.4-5.0) 2.3 G/DL (3.4-5.0) L Globulin 6.0 g/dL 4.6 g/dL Albumin/Globulin Ratio 0.6 (1.0-2.7) L 0.5 (1.0-2.7) L Lipase 321 U/L (73-393) 79 U/L (73-393) Human Chorionic Gonadotropin, Qual Negative (NEGATIVE) Amylase Level 72 U/L (25-115) Allie Cabrera MD Jun 28, 2018 10:23
[2018-06-28] MEDS: Pantoprazole Inj IVP SCH ×2 (10:35→18:32)
--- NOTE | 2018-06-28 10:45 | NUR ---
Patient weaned placed on PS +10 FIO2 50% PEEP +5. Dr. Cabrera ordered to extubate after 10 minutes with no ABG.
--- NOTE | 2018-06-28 10:47 | NUR ---
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 BOWEL PERFORATION VS: BP 96/73, P 137, T 99.2, RR 24, SpO2 96 WBC 14.3, RBC 3.77, Hgb 9.0, Na 133, K 3.3, BUN 55, CR 3.3 IS:NS x1L IV MORPHINE 4mg IVP PROTONIX 40mg IV ZOFRAN 4mG IVP PIPERACILLIN 110ml IVPB ADMITTED TO ICU DC PLAN: RETURN HOME
[2018-06-28] MEDS ORDERED: Potassium Chloride 40 MEQ in Sodium Chloride 550 ML IVPB ONE (11:00)
--- NOTE | 2018-06-28 11:00 | NUR ---
NURSE NOTES: pt in no distress. bilateral wrist restraints removed and d/c. pt extubated and placed on venturi mask 50% FI02. o2 sat 99%. hob>30. no c.o pain. no bm. pt repositioned. watching tv. will continue to monitor pt.
--- NOTE | 2018-06-28 11:14 | NUR ---
Successfully extubated patient. Placed on Venti mask 50% FIO2 12 LPM. LOCO well. No stridor noted.
--- NOTE | 2018-06-28 11:25 | NUR ---
NURSE NOTES: md brown here to see pt.
--- NOTE | 2018-06-28 12:05 | History & Physical ---
History and Physical History & Physicial Oseas Pelletier MD Jun 28, 2018 12:05
--- NOTE | 2018-06-28 12:21 | Diagnostic Imaging Report ---
Indication: Abdominal pain Technique: Spiral acquisitions obtained through the abdomen and pelvis. Patient ingested oral contrast. No IV contrast utilized, per referring physician request.. Multiplanar reconstructions were generated. Total dose length product 526.52 mGycm. CTDIvol(s) 10.18 mGy. Dose reduction achieved using automated exposure control Comparison: 04/23/2018 Findings: Free intraperitoneal air is seen anterior to the left hepatic lobe, within the kimberly hepatis, along side the distal esophagus, around the spleen, in the anterior lower peritoneal space and in the peripancreatic region. There is also a small amount of free intraperitoneal fluid in the anterior upper abdomen. Focal gas collection is seen superior lateral to the gastric antrum or duodenal bulb. Moderate amount of free fluid is seen in the pelvis. There is no evidence of contrast extravasation. There is marked distention of proximal to mid small bowel loops, with gas and small bowel feces demonstrated. No definite transition point is demonstrated, and there appears to be a gradual tapering to normal caliber distal ileum. No evidence of diverticulosis or diverticulitis. The appendix is normal. There is marked wall thickening of the distal esophagus. The stomach and duodenum are unremarkable. The gallbladder, liver, bile ducts, pancreas, spleen, adrenals, kidneys are unremarkable. No retroperitoneal or mesenteric mass or adenopathy. No pelvic mass or adenopathy. Unremarkable uterus and ovaries. Lack of IV contrast limits assessment of the solid organs. Previously demonstrated left upper pole renal cyst and uterine fibroid is not evident on these uninfused images. The included lung bases demonstrate atelectatic changes bilaterally, left greater than right. The bones demonstrate mild endplate compression fracture deformities of T11 and T12 which are also evident previously. Impression: Positive for pneumoperitoneum. This is concerning for bowel perforation. Location of perforation uncertain, but suspect duodenal or gastric antral ulcer. Marked small bowel dilatation. Suspect this represents ileus related to the above, although the possibility of distal small bowel obstruction should also be considered. Free intraperitoneal fluid, likely related to the above Distal esophageal wall thickening, raises concern for esophagitis. This agrees with the preliminary interpretation provided overnight by [facility], with minor nonsignificant variation. The CT scanner at [facility] is accredited by the [employer] and the scans are performed using protocols designed to limit radiation exposure to as low as reasonably achievable to attain images of sufficient resolution adequate for diagnostic evaluation.
--- NOTE | 2018-06-28 12:24 | 48 Hour Post Anesthesia Eval ---
Post Anesthesia Evaluation Procedure: Exploratory Laparotomy, Repair Gastric Ulcer Date of Evaluation: Jun 28, 2018 Airway: patent - extubated 1 hour ago, stable Nausea: No Vomiting: No Pain Intensity: 0 Hydration Status: adequate Cardiopulmonary Status: at baseline Mental Status/LOC: patient returned to baseline Post-Anesthesia Complications: 0 Follow-up care needed: N/A - further care as per primary team Elenita Reen MD Jun 28, 2018 12:24
--- NOTE | 2018-06-28 13:00 | NUR ---
NURSE NOTES: pt repositioned, incentive spintometer obtain 500ml, 750ml. will continue to encourage I.S usage.
--- NOTE | 2018-06-28 13:08 | Brief Operative Note ---
Immediate Post Operative Note Operative Note Pre-op Diagnosis: perforated viscus Procedure: exploratory laparotomy; repair of gastric perforation with kary patch ; partial omentectomy Post-op Diagnosis: perforated gastric pre pyloric ulcer Surgeon: luan Anesthesiologist: gregorio Anesthesia: general Specimen: yes Complications: none Condition: stable Fluids: see records Estimated Blood Loss: volume - 50 Drains: none Implant(s) used?: No Maurice Grady Jun 28, 2018 13:08
--- NOTE | 2018-06-28 13:09 | General Progress Note ---
Progress Note Progress Note awake, alert, responsive. doing okay post op abd exam stable labs noted -npo iv fluids ng tube ppi wean to extubate abx Maurice Grady Jun 28, 2018 13:09
--- NOTE | 2018-06-28 14:20 | Consultation ---
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 CT abd/p showed free air and patient was taken to OR and was found to have gastric perforation and underwent exploratory laparotomy; repair of gastric perforation with kary patch ;partial omentectomy. Denied melena, hematochezia, f/c, hematemesis upon admission. Allergies: Coded Allergies: No Known Allergies (Unverified , 01/11/13) Medication History Scheduled Ibuprofen* (Motrin*), 400 MG ORAL BID, (Reported) Prednisone* (Prednisone*), 10 MG ORAL DAILY, (Reported) Scheduled PRN Hydrocodone Bit/Acetaminophen 5-325* ([place] 5-325*), 1 TAB ORAL BID PRN for For Pain, (Reported) Patient History Healthcare decision maker Resuscitation status Full Code Advanced Directive on File Patient History Narrative . Pmhx: as above Shx: Denies: smoking, alcohol use, drug use Fhx non contributory Review of Systems All Other Systems: negative except mentioned in HPI Physical Exam Physical Exam Narrative Status: awake Condition: critical HEENT: atraumatic Heart: HR/BP stable Abdomen: soft, active bowel sounds, feeding tube Extremities: edema Last 24 Hour Vital Signs Date Time Temp Pulse Resp B/P (MAP) Pulse Ox O2 Delivery O2 Flow Rate FiO2 06/28/18 13:10 110 06/28/18 12:00 99.9 111 21 131/74 (93) 95 06/28/18 12:00 50 06/28/18 11:16 11 26 Venturi Mask 12.0 50 06/28/18 11:16 Venturi Mask 12.0 50 06/28/18 11:16 98 Venturi Mask 12.0 50 06/28/18 11:11 Venturi Mask 12.0 50 06/28/18 11:10 50 06/28/18 11:00 113 23 144/74 (97) 98 06/28/18 10:42 115 20 50 06/28/18 10:00 117 19 141/69 (93) 98 06/28/18 09:28 124 23 50 06/28/18 09:00 122 20 127/66 (86) 95 06/28/18 08:00 128 06/28/18 08:00 99.6 129 30 157/133 (141) 100 06/28/18 07:34 132 12 100 06/28/18 07:23 118 20 50 06/28/18 07:00 120 20 115/68 (84) 98 06/28/18 06:00 123 20 120/70 (87) 98 06/28/18 05:00 99.8 123 21 130/84 (99) 99 06/28/18 04:14 124 06/28/18 04:00 60 06/28/18 00:32 149 06/28/18 00:00 Mechanical Ventilator 06/27/18 20:52 99.2 135 24 139/67 96 Room Air 06/27/18 19:30 99.2 135 24 139/67 96 Room Air 06/27/18 16:38 99.2 06/27/18 15:10 98.8 135 24 125/75 96 Room Air 06/27/18 15:10 137 24 Room Air 06/27/18 15:07 98.8 166 24 96/73 96 Room Air Intake and Output 06/27/18 06/28/18 19:00 07:00 Intake Total 210 ml Output Total 1030 ml Balance -820 ml Intake IV Total 210 ml Output Urine Total 1010 ml Gastric Drainage Total 20 ml # Voids 1 Laboratory Tests Test 06/27/18 15:55 06/28/18 05:55 White Blood Count 7.2 K/UL (4.8-10.8) 14.3 K/UL (4.8-10.8) #H Red Blood Count 4.82 M/UL (4.20-5.40) 3.77 M/UL (4.20-5.40) L Hemoglobin 11.6 G/DL (12.0-16.0) L 9.0 G/DL (12.0-16.0) L Hematocrit 37.1 % (37.0-47.0) 28.5 % (37.0-47.0) L Mean Corpuscular Volume 77 FL (80-99) L 76 FL (80-99) L Mean Corpuscular Hemoglobin 24.0 PG (27.0-31.0) L 23.8 PG (27.0-31.0) L Mean Corpuscular Hemoglobin Concent 31.2 G/DL (32.0-36.0) L 31.5 G/DL (32.0-36.0) L Red Cell Distribution Width 18.7 % (11.6-14.8) H 19.3 % (11.6-14.8) H Platelet Count 513 K/UL (150-450) H 428 K/UL (150-450) Mean Platelet Volume 6.3 FL (6.5-10.1) L 6.2 FL (6.5-10.1) L Neutrophils (%) (Auto) 77.7 % (45.0-75.0) H % (45.0-75.0) Lymphocytes (%) (Auto) 10.2 % (20.0-45.0) L % (20.0-45.0) Monocytes (%) (Auto) 10.3 % (1.0-10.0) H % (1.0-10.0) Eosinophils (%) (Auto) 0.6 % (0.0-3.0) % (0.0-3.0) Basophils (%) (Auto) 1.2 % (0.0-2.0) % (0.0-2.0) Prothrombin Time 9.1 SEC (9.30-11.50) L Prothromb Time International Ratio 0.9 (0.9-1.1) Activated Partial Thromboplast Time 26 SEC (23-33) 34 SEC (23-33) H Urine Color Ludivina Urine Appearance Cloudy Urine pH 5 (4.5-8.0) Urine Specific [place] 1.020 (1.005-1.035) Urine Protein 3+ (NEGATIVE) H Urine Glucose (UA) Negative (NEGATIVE) Urine Ketones Negative (NEGATIVE) Urine Blood 2+ (NEGATIVE) H Urine Nitrite Negative (NEGATIVE) Urine Bilirubin 2+ (NEGATIVE) H Urine Ictotest Negative (NEGATIVE) Urine Urobilinogen 1 MG/DL (0.0-1.0) H Urine Leukocyte Esterase 1+ (NEGATIVE) H Urine RBC 2-4 /HPF (0 - 2) H Urine WBC 2-4 /HPF (0 - 2) Urine Squamous Epithelial Cells Many /LPF (NONE/OCC) H Urine Bacteria Many /HPF (NONE) H Sodium Level 133 MMOL/L (136-145) L 138 MMOL/L (136-145) Potassium Level 3.3 MMOL/L (3.5-5.1) L 3.4 MMOL/L (3.5-5.1) L Chloride Level 90 MMOL/L (98-107) L 102 MMOL/L (98-107) Carbon Dioxide Level 24 MMOL/L (21-32) 21 MMOL/L (21-32) Anion Gap 19 mmol/L (5-15) H 15 mmol/L (5-15) Blood Urea Nitrogen 55 mg/dL (7-18) H 37 mg/dL (7-18) H Creatinine 3.3 MG/DL (0.55-1.30) H 1.5 MG/DL (0.55-1.30) #H Estimat Glomerular Filtration Rate 18.2 mL/min (>60) 45.1 mL/min (>60) Glucose Level 133 MG/DL (74-106) H 133 MG/DL (74-106) H Calcium Level 9.7 MG/DL (8.5-10.1) 8.2 MG/DL (8.5-10.1) L Total Bilirubin 0.5 MG/DL (0.2-1.0) 0.6 MG/DL (0.2-1.0) Aspartate Amino Transf (AST/SGOT) 34 U/L (15-37) 43 U/L (15-37) H Alanine Aminotransferase (ALT/SGPT) 22 U/L (12-78) 21 U/L (12-78) Alkaline Phosphatase 127 U/L (46-116) H 82 U/L (46-116) Total Protein 9.4 G/DL (6.4-8.2) H 6.9 G/DL (6.4-8.2) Albumin 3.4 G/DL (3.4-5.0) 2.3 G/DL (3.4-5.0) L Globulin 6.0 g/dL 4.6 g/dL Albumin/Globulin Ratio 0.6 (1.0-2.7) L 0.5 (1.0-2.7) L Lipase 321 U/L (73-393) 79 U/L (73-393) Human Chorionic Gonadotropin, Qual Negative (NEGATIVE) Amylase Level 72 U/L (25-115) Microbiology Date/Time Source Procedure Growth Status 06/27/18 15:55 Urine,Clean Catch Urine Culture - Preliminary NO GROWTH Resulted Height (Feet): 5 Height (Inches): 5.00 Weight (Pounds): 129 Medications Current Medications Medications (Trade) Dose Ordered Sig/Marisol Route PRN Reason Start Time Stop Time Status Last Admin Dose Admin Dextrose (Dextrose 50%) 25 ml Q30M PRN IV Hypoglycemia 06/27/18 19:30 07/27/18 19:29 Dextrose (Dextrose 50%) 50 ml Q30M PRN IV Hypoglycemia 06/27/18 19:30 07/27/18 19:29 Fluconazole/ Sodium Chloride 100 ml @ 100 mls/hr Q24H IV 06/28/18 01:30 07/05/18 01:29 06/28/18 01:30 Heparin Sodium (Porcine) (Heparin 5000 units/ml) 5,000 units EVERY 12 HOURS SUBQ 06/28/18 09:00 07/28/18 08:59 Lactated Ringer's 1,000 ml @ 125 mls/hr Q8H IV 06/28/18 00:00 07/28/18 00:00 06/28/18 08:00 Midazolam HCl (Versed 2mg/2ml vial) 1 mg Q1H PRN IVP ANXIETY 06/29/18 00:00 07/29/18 00:00 06/28/18 08:05 Morphine Sulfate (Morphine Sulfate) 2 mg Q3H PRN IVP FOR PAIN 06/28/18 10:30 07/05/18 10:29 06/28/18 10:37 Nitroglycerin (Ntg) 0.4 mg Q5M X 3 DOSES PRN SL Prn Chest Pain 06/27/18 19:30 07/27/18 19:29 Ondansetron HCl (Zofran) 4 mg Q6H PRN IVP Nausea & Vomiting 06/28/18 00:00 07/28/18 00:00 Pantoprazole (Protonix) 40 mg BID IVP 06/28/18 09:00 07/28/18 08:59 06/28/18 10:35 Piperacillin Sod/ Tazobactam Sod 2.25 gm/Dextrose 55 ml @ 110 mls/hr EVERY 6 HOURS IVPB 06/28/18 08:00 07/05/18 07:59 06/28/18 12:11 Potassium Chloride 40 meq/ Sodium Chloride 570 ml @ 142.5 mls/ hr ONCE ONCE IVPB 06/28/18 11:00 06/28/18 14:59 06/28/18 12:12 Temazepam (Restoril) 15 mg HSPRN PRN ORAL Insomnia 06/27/18 19:30 07/04/18 19:29 Assessment/Plan Assessment/Plan Abx: Fluconazole 06/27- Zosyn 06/27- Assessment: Gastric perforation -06/28 SP exploratory laparotomy; repair of gastric perforation with kary patch ;partial omentectomy -06/27 CT abd/p: Positive for pneumoperitoneum. This is concerning for bowel perforation. Location of perforation uncertain, but suspect duodenal or gastric antral ulcer. Marked small bowel dilatation. Suspect this represents ileus related to the above, although the possibility of distal small bowel obstruction should also be considered. Free intraperitoneal fluid, likely related to the above. Distal esophageal wall thickening, raises concern for esophagitis. 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 Will continue to follow along with you Elvia Yi M.D. Jun 28, 2018 14:20
--- NOTE | 2018-06-28 15:00 | NUR ---
NURSE NOTES: pt in bed. family at bedside. pt in no acute distress.
--- NOTE | 2018-06-28 15:09 | General Progress Note ---
Assessment/Plan Problem List: (1) Perforated abdominal viscus SNOMED: 747130111 (2) GI bleed ICD Codes: K92.2 - Gastrointestinal hemorrhage, unspecified SNOMED: 11254235 (3) PUD (peptic ulcer disease) ICD Codes: K27.9 - Peptic ulcer, site unspecified, unspecified as acute or chronic, without hemorrhage or perforation SNOMED: 77573049 Assessment/Plan s/p surg npo ivf pain control ppi fu H&H fu surg recs Subjective ROS Limited/Unobtainable: Yes Allergies: Coded Allergies: No Known Allergies (Unverified , 01/11/13) Objective Last 24 Hour Vital Signs Date Time Temp Pulse Resp B/P (MAP) Pulse Ox O2 Delivery O2 Flow Rate FiO2 06/28/18 13:10 110 06/28/18 12:00 99.9 111 21 131/74 (93) 95 06/28/18 12:00 50 06/28/18 11:16 11 26 Venturi Mask 12.0 50 06/28/18 11:16 Venturi Mask 12.0 50 06/28/18 11:16 98 Venturi Mask 12.0 50 06/28/18 11:11 Venturi Mask 12.0 50 06/28/18 11:10 50 06/28/18 11:00 113 23 144/74 (97) 98 06/28/18 10:42 115 20 50 06/28/18 10:00 117 19 141/69 (93) 98 06/28/18 09:28 124 23 50 06/28/18 09:00 122 20 127/66 (86) 95 06/28/18 08:00 128 06/28/18 08:00 99.6 129 30 157/133 (141) 100 06/28/18 07:34 132 12 100 06/28/18 07:23 118 20 50 06/28/18 07:00 120 20 115/68 (84) 98 06/28/18 06:00 123 20 120/70 (87) 98 06/28/18 05:00 99.8 123 21 130/84 (99) 99 06/28/18 04:14 124 06/28/18 04:00 60 06/28/18 00:32 149 06/28/18 00:00 Mechanical Ventilator 06/27/18 20:52 99.2 135 24 139/67 96 Room Air 06/27/18 19:30 99.2 135 24 139/67 96 Room Air 06/27/18 16:38 99.2 06/27/18 15:10 98.8 135 24 125/75 96 Room Air 06/27/18 15:10 137 24 Room Air Intake and Output 06/27/18 06/28/18 18:59 06:59 Intake Total 210 ml Output Total 920 ml Balance -710 ml Intake IV Total 210 ml Output Urine Total 900 ml Gastric Drainage Total 20 ml # Voids 1 Laboratory Tests 06/27/18 15:55: White Blood Count 7.2, Red Blood Count 4.82, Hemoglobin 11.6L, Hematocrit 37.1, Mean Corpuscular Volume 77L, Mean Corpuscular Hemoglobin 24.0L, Mean Corpuscular Hemoglobin Concent 31.2L, Red Cell Distribution Width 18.7H, Platelet Count 513H, Mean Platelet Volume 6.3L, Neutrophils (%) (Auto) 77.7H, Lymphocytes (%) (Auto) 10.2L, Monocytes (%) (Auto) 10.3H, Eosinophils (%) (Auto ) 0.6, Basophils (%) (Auto) 1.2, Prothrombin Time 9.1L, Prothromb Time International Ratio 0.9, Activated Partial Thromboplast Time 26, Urine Color Ludivina, Urine Appearance Cloudy, Urine pH 5, Urine Specific Arthur 1.020, Urine Protein 3+H, Urine Glucose (UA) Negative, Urine Ketones Negative, Urine Blood 2+ H, Urine Nitrite Negative, Urine Bilirubin 2+H, Urine Ictotest Negative, Urine Urobilinogen 1H, Urine Leukocyte Esterase 1+H, Urine RBC 2-4H, Urine WBC 2-4, Urine Squamous Epithelial Cells ManyH, Urine Bacteria ManyH, Sodium Level 133L, Potassium Level 3.3L, Chloride Level 90L, Carbon Dioxide Level 24, Anion Gap 19H , Blood Urea Nitrogen 55H, Creatinine 3.3H, Estimat Glomerular Filtration Rate 18.2, Glucose Level 133H, Calcium Level 9.7, Total Bilirubin 0.5, Aspartate Amino Transf (AST/SGOT) 34, Alanine Aminotransferase (ALT/SGPT) 22, Alkaline Phosphatase 127H, Total Protein 9.4H, Albumin 3.4, Globulin 6.0, Albumin/ Globulin Ratio 0.6L, Lipase 321, Human Chorionic Gonadotropin, Qual Negative 06/28/18 05:55: White Blood Count 14.3#H, Red Blood Count 3.77L, Hemoglobin 9.0L, Hematocrit 28.5L, Mean Corpuscular Volume 76L, Mean Corpuscular Hemoglobin 23.8L, Mean Corpuscular Hemoglobin Concent 31.5L, Red Cell Distribution Width 19.3H, Platelet Count 428, Mean Platelet Volume 6.2L, Neutrophils (%) (Auto) , Lymphocytes (%) (Auto) , Monocytes (%) (Auto) , Eosinophils (%) (Auto) , Basophils (%) (Auto) , Activated Partial Thromboplast Time 34H, Sodium Level 138 , Potassium Level 3.4L, Chloride Level 102, Carbon Dioxide Level 21, Anion Gap 15, Blood Urea Nitrogen 37H, Creatinine 1.5#H, Estimat Glomerular Filtration Rate 45.1, Glucose Level 133H, Calcium Level 8.2L, Total Bilirubin 0.6, Aspartate Amino Transf (AST/SGOT) 43H, Alanine Aminotransferase (ALT/SGPT) 21, Alkaline Phosphatase 82, Total Protein 6.9, Albumin 2.3L, Globulin 4.6, Albumin/ Globulin Ratio 0.5L, Lipase 79, Amylase Level 72 Height (Feet): 5 Height (Inches): 5.00 Weight (Pounds): 129 General Appearance: no apparent distress EENT: normal ENT inspection Neck: supple Cardiovascular: tachycardia Respiratory/Chest: decreased breath sounds Abdomen: other - post surgical Extremities: non-tender Conrad Cedeño MD Jun 28, 2018 15:09
--- NOTE | 2018-06-28 15:31 | NUR ---
Social Work This SW met with patient, currently in the ICU who remains alert/oriented x4. Emotional support provided to patient. 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 Patient was independent prior. Pending progress at this time. Patient remains full code, full treatment. No SW needs or concerns present at this time. Patient does not present with any mental health or substance abuse concerns at this time.
--- NOTE | 2018-06-28 16:15 | Operative Note - Dictated ---
DATE OF OPERATION: 06/27/2018 PREOPERATIVE DIAGNOSIS: Perforated viscus. POSTOPERATIVE DIAGNOSIS: Perforated pre-pyloric gastric ulcer. OPERATION PERFORMED: 1. Exploratory laparotomy. 2. Repair of gastric perforation with Román patch. 3. Partial omentectomy. ATTENDING SURGEON: Maurice Grady M.D. OPEN SHANK COVERER: None. ANESTHESIOLOGIST: Giancarlo Esparza M.D. ANESTHESIA: General GETA. ESTIMATED BLOOD LOSS: 50 mL. IV FLUIDS: Please see anesthesia records. COMPLICATIONS: None. DRAINS: None. SPECIMENS: Partial omentectomy and cultures. COUNTS: Sponge and needle count correct x2. WOUND CLASSIFICATION: Class 3. IMPLANTS: None. ANTIBIOTICS: The patient was given IV Zosyn in the emergency department prior to the operation. INDICATIONS FOR PROCEDURE: This is a 47-year-old female with multiple medical comorbidities who is on prednisone, narcotics, and NSAIDs, who presented to the emergency department complaining of worsening abdominal pain. The patient states that initially began about 2 weeks ago where she was told by a friend to take baking soda and olive oil, which she has been doing for the past 2 weeks. The patient smokes, drinks, and has a poor dietary habits with known gastric ulcer in the past, who has not been compliant with PPI medication. Over the past 3 days has had worsening pain and abdominal distention and came to the emergency room for evaluation tonight. In the emergency department noted to be peritonitic with distended abdomen and CT scan consistent with pneumoperitoneum and perforated viscus. Given patient's history, examination, and above findings, surgery was indicated and recommended, but explained to the patient's family that is very high risk with significant morbidity and potentially mortality. I explained that there is an area perforation which is not clearly identified in the CT scan, but likely related to prior gastric ulcer disease and her comorbidities. I explained that we will proceed with exploration and repair, possible bowel resection. The patient and family expressed understanding and consented to surgery. Risks, benefits, alternatives were discussed in detail. OPERATIVE NOTE: The patient was taken to the operating room, placed on the operative table in supine position with bilateral arms out. All bony prominences were well padded. SCDs were placed. Preoperative time-out was taken identifying the patient, procedure, operative staff, and surgical staff. General anesthesia was induced and the patient was intubated. Oliveira catheter was inserted using standard sterile technique. The abdomen was clipped, prepped, draped in standard surgical fashion. A midline incision was made from the xiphoid to above the umbilicus. Incision was carried down through subcutaneous tissue to the fascia, which was elevated and incised. Entry into the abdomen was obtained without complication. Upon entering the abdomen, there was greenish bilious fluid identified. Soon after the stomach was noted and the area of perforation was identified, pre-pyloric on the anterior superior surface of the stomach. At this time, the remainder of the bowel from the ligament of Treitz to the ileocecal valve was identified and the visualized portions of the colon were identified and no other abnormality was noted. The abdomen was irrigated with copious amounts of warm normal saline in all quadrants and the pelvis. Once this completed, attention was turned to the gastric perforation. Of note, patient had a prior and there were was a lip of omentum adhesed to the prior surgical scar and required mobilization. The stomach was pulled down and the perforation was identified in full. NG tube was in place and the stomach was evacuated and the NG tube was correctly positioned. Following this, a lip of omentum was created for a Román patch. Noted there was an area of the omentum that was dusky and required resection. This area of omentum was ligated and divided using silk ties and sent to pathology. Once this was completed, a single healthy viable lip was made for the Román patch. Three silk sutures were placed, one superior, one middle, one inferior at the area of perforation, which was approximately 5 to 6 mm in size. Once the sutures were placed in the appropriate position, lip of the omentum was placed over the defect and the sutures were tied down. Appropriate and satisfactory Román patch was identified. The intestines were returned to the anatomic position and the abdomen was inspected and irrigated and cleared. At this time, we began the conclusion of the procedure. The fascia was reapproximated using 0 loop PDS suture. The skin incision was cleansed and skin incision was reapproximated using surgical denny. The patient tolerated the procedure well, was taken directly to the intensive care unit in a stable condition. Maurice Benyamini, M.D. DR: Polo JOB#: [id number] CC: MARTA
--- NOTE | 2018-06-28 16:21 | NUR ---
*-* INSURANCE *-* ALL CLINICALS AND REVIEWS HAVE BEEN FAXED TO: [employer] ([facility] [place]) P- [phone] F- [phone]....IF NEEDED F/S FAXED TO [employer] CUI# [id number] NO [employer] SYSTEMS REPAIRER ASSIGNED AT THIS TIME PLEASE FAX THE REVIEW/CLINICAL P- [phone] F- [phone]
--- NOTE | 2018-06-28 18:40 | NUR ---
NURSE NOTES: pt requested pain medication 10/16 in abdomen. morphine iv administered per md order.
--- NOTE | 2018-06-28 19:30 | NUR ---
NURSE NOTES: Recvd.AAO,S/P extubated on 40%VM inh.Sat.97-99%.Lungs clear.S/P EX-LAP.Repair of Gastric Perfo.with kary Patch and partial omentectomy Post-op drsng.clean and dry.NPO.Negative BS.NGT to Low int.Suction drain dark greenish gastric Sec.IV Thera.infusing.F/Cath.patent diuresis well.Pos. chg.Made comfortable.Enc.[employer]Leopold.Fully instructed.
--- NOTE | 2018-06-28 19:34 | NUR ---
HAND-OFF: Report given to Abdias neely in no acute distress..
[2018-06-28] MEDS ORDERED: Midazolam 2mg/2ml Inj IVP PRN (19:45)
--- NOTE | 2018-06-28 20:15 | History and Physical Report ---
DATE OF ADMISSION: 06/27/2018 CHIEF COMPLAINT: Abdominal pain. HISTORY OF PRESENT ILLNESS: This is a 47-year-old very unfortunate female with past medical history significant for chronic inflammatory neuropathy on prednisone, who was presented to the hospital complaining about severe abdominal pain. She has been having a prior history of gastrointestinal bleed in the past and has been having stomach upset for a few weeks, got progressively worsening. She was taking baking soda with the olive oil, as recommended by her friend. The patient's status progressed to worsening 10/10 in intensity, sharp, nonradiating. Denies any fever or chills. Denies any loss of consciousness. Denies any bright red blood per rectum. Shortly after initial evaluation in the emergency room, the patient was noted to have a perforated viscus, as a result of the gastrointestinal bleed and subsequently the patient was evaluated by Dr. Maurice Grady and was taken to the emergency surgery. PAST MEDICAL HISTORY/PAST SURGICAL HISTORY: As above, history of facial contusion, lower extremity contusion, rib contusion, gastric ulcer, esophageal, peptic ulcer disease, history of chronic inflammatory neuropathy with chronic inflammatory demyelinating polyneuropathy. MEDICATIONS: At home, refer to medication reconciliation. ALLERGIES: No known drug allergies. SOCIAL HISTORY: Denies any smoking, alcohol, or drugs at this time. FAMILY HISTORY: Noncontributory. REVIEW OF SYSTEMS: Complains of abdominal pain, nausea, and vomiting. No fever or chills. PHYSICAL EXAMINATION: VITAL SIGNS: On admission, temperature 98.8, pulse 116, respirations 24, and blood pressure 96/73. GENERAL: The patient is awake and responsive, in no acute distress at this time. HEAD AND NECK: Pupils are equal and reactive. Extraocular movements are intact. Neck was supple. No JVD. The patient has a NG tube to intermittent suction. LUNGS: Good air entry. No wheezes or rhonchi. Decreased air in bases. HEART: S1, S2. Tachycardic. No murmur or gallop. ABDOMEN: Soft. Generalized tenderness. Midline surgical incision from the recent abdominal surgery. EXTREMITIES: No cyanosis, clubbing, or edema. NEUROLOGIC: Cranial nerves II through XII grossly normal. Moves all four extremities. Gait is intact. LABORATORY AND DIAGNOSTIC DATA: On admission WBC 7.2, hemoglobin 11, hematocrit 37, and platelets 513,000. Sodium was 133, potassium 3.3, chloride 90, bicarbonate 24, BUN 55, and creatinine 3.3. Lipase is 321. Beta HCG is negative. PT 9, INR 0.9, and PTT 26. Urinalysis - +2 blood, +2 bilirubin, and many bacteria. ASSESSMENT: 1. Abdominal pain, most likely secondary to perforated abdominal viscus. 2. Acute kidney injury/acute tubular necrosis. 3. Peritonitis. 4. History of gastric ulcer. 5. Acute anemia, most likely secondary to acute blood loss. 6. Severe dehydration. 7. History of chronic inflammatory demyelinating polyneuropathy. PLAN: 1. Admit the patient to ICU. 2. Follow up with Dr. Miguel A sandoval from General Surgery and Dr. Pat from Pulmonary Critical Care. 3. Broad spectrum antibiotics with Zosyn and Diflucan. 4. We will follow up with the pain medication. 5. Code status is Full Code. 6. We will try to attempt extubation today. 7. For DVT will be SCD, Protonix IV twice a day. Ro Singh JOB#: [id number] CC:
--- NOTE | 2018-06-28 22:00 | NUR ---
NURSE NOTES: HS care rendered.Pos.to comfort.Denies post-op pain.Due med.admin.
[2018-06-29] VITALS (17 sets, daily range): BP systolic 116–145; BP diastolic 57–83
[2018-06-29] MEDS ORDERED: Morphine Sulfate 2mg/ml Inj(IV/IM USE ONLY) IVP PRN
--- NOTE | 2018-06-29 00:10 | NUR ---
NURSE NOTES: Sound asleep.Resp.unlabored.Sat.-98% on 40%VM.See V/S.Scope Rhythm same.NPO Maintained.NGT to Low int.suction patency maintained.No distress.Cont.on IV Therapy.See I/O.
--- NOTE | 2018-06-29 02:00 | NUR ---
NURSE NOTES: Doze off/on.Status same.Cont.Plan of care.
[2018-06-29] MEDS: Morphine Sulfate 2mg/ml Inj(IV/IM USE ONLY) IVP PRN ×6 (03:02→21:48)
--- NOTE | 2018-06-29 03:44 | NUR ---
NURSE NOTES: C/o post-op pain.medicated with releif.Blood drawn for cbc/cmp etc.Spec.to Lab.jah Whatley.
--- NOTE | 2018-06-29 05:00 | NUR ---
NURSE NOTES: Slept well.VSS.Scope rhythm SR-ST.No CP.Post-op drsng clean and dry.Remain NPO.NGT to Low int.Suction Total drain of 350cc.Cont.Plan of care.
[2018-06-29 05:21] LABS: HEMOGLOBIN 7.5 G/DL (12.0-16.0); MEAN CORPUSCULAR VOLUME 76 FL (80-99); PLATELET COUNT 358 K/UL (150-450); RED BLOOD COUNT 3.13 M/UL (4.20-5.40); RED CELL DISTRIBUTION WIDTH 19.3 % (11.6-14.8); WHITE BLOOD COUNT 11.7 K/UL (4.8-10.8)
[2018-06-29 05:39] LABS: ALANINE AMINOTRANSFERASE 21 U/L (12-78); ALBUMIN/GLOBULIN RATIO 0.5 (1.0-2.7); ALKALINE PHOSPHATASE 73 U/L (46-116); ANION GAP 14 mmol/L (5-15); ASPARTATE AMINO TRANSFERASE 32 U/L (15-37); BILIRUBIN,TOTAL 0.4 MG/DL (0.2-1.0); BLOOD UREA NITROGEN 22 mg/dL (7-18); CALCIUM 8.4 MG/DL (8.5-10.1); CARBON DIOXIDE 22 MMOL/L (21-32); CHLORIDE 110 MMOL/L (98-107); CREATININE 0.7 MG/DL (0.55-1.30); PHOSPHORUS 2.3 MG/DL (2.5-4.9); POTASSIUM 3.3 MMOL/L (3.5-5.1); SODIUM 146 MMOL/L (136-145)
[2018-06-29] MEDS: Piperacillin/Tazobactam 2.25 GM in D5W 55 ML IVPB SCH ×2 (06:10→11:57)
--- NOTE | 2018-06-29 07:28 | NUR ---
HAND-OFF: Report given to ADRIEL CALLEJAS.
--- NOTE | 2018-06-29 07:29 | NUR ---
NURSE NOTES: Received patient from ADRIEL Calero. Patient is status post exploratory lap, repair of gastric perforation, and partial omentectomy. Patient has large dressing on abdomen. Dressing intact and dry. Patient is alert and oriented x4 at this time. Patient showing sinus tachycardia on the monitor with rate of 103 at this time. Patient was extubated yesterday 06/28 at 1114. Patient was then placed on Venturi mask with FiO2 50%. Patient switched to NC 2L last night. Patient oxygenation stable at 98% at this time. Patient complaining of pain at this time at incision site. Will follow up with pain medication. Patient has incentive spirometer. Will encourage patient to use the IS. Patient has NGT in the right nares that is set to low intermittent suction. Patient has a Oliveira that was inserted prior to surgery with stable output of 80-100mL/hr at this time. Patient skin intact except incision site on abdomen. Patient has right forearm 20G PIV that is running LR at 125mL/hr at this time. Patient bed in low position with bed alarm on and call light in reach at this time.
[2018-06-29] MEDS: LR 1000ml 1,000 ML IV SCH ×3 (08:13→23:00)
[2018-06-29] MEDS: Heparin 5000 units/ml inj SUBQ SCH ×2 (08:57→20:30)
[2018-06-29] MEDS: Pantoprazole Inj IVP SCH ×2 (09:14→17:21)
--- NOTE | 2018-06-29 10:30 | NUR ---
NURSE NOTES: Patient in pain at this time and is complaining of nausea. Will follow up with medications when possible. Patient VS stable at this time. Patient to be transferred to med/surg bed 312.
--- NOTE | 2018-06-29 10:57 | Infectious Diseases Prog Note ---
Assessment/Plan Assessment/Plan Assessment: Gastric perforation Abd Cx: GNR -06/28 SP exploratory laparotomy; repair of gastric perforation with kary patch ;partial omentectomy -06/27 CT abd/p: Positive for pneumoperitoneum. This is concerning for bowel perforation. Location of perforation uncertain, but suspect duodenal or gastric antral ulcer. Marked small bowel dilatation. Suspect this represents ileus related to the above, although the possibility of distal small bowel obstruction should also be considered. Free intraperitoneal fluid, likely related to the above. Distal esophageal wall thickening, raises concern for esophagitis. Low grade fever x 1 Leukocytosis, post op improving -u/a no pyuria Acute respiratory distress on VM SHERLY, improving chronic inflammatory demyelinating polyneuropathy on chronic narcotic/NSAIDS and prednisone use seizure disorder GIB Plan: -Continue Zosyn and Fluconazole #3 ( august DC Diflucan soon) -f.u cx -Monitor CBC/CMP, temperatures -Sx f/u -wound care per hospital protocol and surgical team -aspiration precautions -ICU care Subjective Allergies: Coded Allergies: No Known Allergies (Unverified , 01/11/13) Subjective in ICU low grade fever x 1 Objective Vital Signs Last 24 Hour Vital Signs Date Time Temp Pulse Resp B/P (MAP) Pulse Ox O2 Delivery O2 Flow Rate FiO2 06/29/18 10:00 70 24 122/60 (80) 100 06/29/18 09:00 71 21 122/60 (80) 100 06/29/18 08:00 Venturi Mask 12.0 Venturi Mask 06/29/18 08:00 97.7 72 21 116/57 (76) 100 06/29/18 07:00 104 24 131/78 (95) 96 06/29/18 06:00 98 24 140/75 (96) 98 06/29/18 05:00 98.7 101 21 145/78 (100) 99 06/29/18 04:00 106 06/29/18 04:00 Venturi Mask 12.0 Venturi Mask 06/29/18 04:00 105 22 136/64 (88) 96 06/29/18 03:37 98.7 06/29/18 03:00 106 26 130/64 (86) 96 06/29/18 02:00 97 21 139/71 (93) 99 06/29/18 01:00 98 21 122/61 (81) 98 06/29/18 00:00 98.5 105 23 123/61 (81) 98 06/29/18 00:00 Venturi Mask 12.0 Venturi Mask 06/29/18 00:00 105 06/28/18 23:00 109 23 129/59 (82) 98 06/28/18 22:00 108 24 135/71 (92) 98 06/28/18 21:00 98.8 108 26 134/67 (89) 99 06/28/18 20:40 99 Venturi Mask 12.0 50 06/28/18 20:40 Venturi Mask 12.0 50 06/28/18 20:00 113 06/28/18 20:00 Venturi Mask 12.0 Venturi Mask 06/28/18 20:00 113 27 130/70 (90) 99 06/28/18 19:00 112 25 156/69 (98) 97 06/28/18 18:00 105 30 140/84 (102) 98 06/28/18 17:00 114 30 133/67 (89) 97 06/28/18 16:00 110 06/28/18 16:00 Venturi Mask 12.0 Venturi Mask 06/28/18 16:00 100.0 108 25 138/70 (92) 97 06/28/18 15:00 108 25 136/72 (93) 97 06/28/18 14:00 112 25 138/78 (98) 96 06/28/18 13:10 110 06/28/18 13:00 110 20 132/75 (94) 97 06/28/18 12:00 99.9 111 21 131/74 (93) 95 06/28/18 12:00 50 06/28/18 12:00 Venturi Mask 12.0 Venturi Mask 06/28/18 11:16 11 26 Venturi Mask 12.0 50 06/28/18 11:16 Venturi Mask 12.0 50 06/28/18 11:16 98 Venturi Mask 12.0 50 06/28/18 11:11 Venturi Mask 12.0 50 06/28/18 11:10 50 06/28/18 11:00 113 23 144/74 (97) 98 Height (Feet): 5 Height (Inches): 5.00 Weight (Pounds): 129 HEENT: atraumatic Respiratory/Chest: normal breath sounds Cardiovascular: no JVD Abdomen: no mass Microbiology Date/Time Source Procedure Growth Status 06/27/18 15:55 Urine,Clean Catch Urine Culture - Final Mixed Gram Positive Organism Complete 06/27/18 21:40 Abdominal Fluid Gram Stain - Final Resulted 06/27/18 21:40 Aerobic Culture - Preliminary Gram Negative Jeromy Resulted 06/27/18 21:40 Abdominal Fluid Anaerobic Culture - Preliminary Resulted Laboratory Tests Test 06/29/18 04:10 White Blood Count 11.7 K/UL (4.8-10.8) H Red Blood Count 3.13 M/UL (4.20-5.40) L Hemoglobin 7.5 G/DL (12.0-16.0) L Hematocrit 24.0 % (37.0-47.0) L Mean Corpuscular Volume 76 FL (80-99) L Mean Corpuscular Hemoglobin 24.0 PG (27.0-31.0) L Mean Corpuscular Hemoglobin Concent 31.4 G/DL (32.0-36.0) L Red Cell Distribution Width 19.3 % (11.6-14.8) H Platelet Count 358 K/UL (150-450) Mean Platelet Volume 6.4 FL (6.5-10.1) L Neutrophils (%) (Auto) % (45.0-75.0) Lymphocytes (%) (Auto) % (20.0-45.0) Monocytes (%) (Auto) % (1.0-10.0) Eosinophils (%) (Auto) % (0.0-3.0) Basophils (%) (Auto) % (0.0-2.0) Differential Total Cells Counted 100 Neutrophils % (Manual) 87 % (45-75) H Lymphocytes % (Manual) 10 % (20-45) L Monocytes % (Manual) 3 % (1-10) Eosinophils % (Manual) 0 % (0-3) Basophils % (Manual) 0 % (0-2) Band Neutrophils 0 % (0-8) Platelet Estimate Adequate Platelet Morphology Normal Hypochromasia 2+ Anisocytosis 2+ Microcytosis 1+ Erythrocyte Sedimentation Rate 115 MM/HR (0-20) H Sodium Level 146 MMOL/L (136-145) H Potassium Level 3.3 MMOL/L (3.5-5.1) L Chloride Level 110 MMOL/L (98-107) H Carbon Dioxide Level 22 MMOL/L (21-32) Anion Gap 14 mmol/L (5-15) Blood Urea Nitrogen 22 mg/dL (7-18) H Creatinine 0.7 MG/DL (0.55-1.30) # Estimat Glomerular Filtration Rate > 60 mL/min (>60) Glucose Level 79 MG/DL (74-106) Calcium Level 8.4 MG/DL (8.5-10.1) L Phosphorus Level 2.3 MG/DL (2.5-4.9) L Magnesium Level 2.1 MG/DL (1.8-2.4) Total Bilirubin 0.4 MG/DL (0.2-1.0) Aspartate Amino Transf (AST/SGOT) 32 U/L (15-37) Alanine Aminotransferase (ALT/SGPT) 21 U/L (12-78) Alkaline Phosphatase 73 U/L (46-116) C-Reactive Protein, Quantitative 33.0 mg/dL (0.00-0.90) H Total Protein 6.4 G/DL (6.4-8.2) Albumin 2.0 G/DL (3.4-5.0) L Globulin 4.4 g/dL Albumin/Globulin Ratio 0.5 (1.0-2.7) L Current Medications Medications (Trade) Dose Ordered Sig/Marisol Route PRN Reason Start Time Stop Time Status Last Admin Dose Admin Dextrose (Dextrose 50%) 25 ml Q30M PRN IV Hypoglycemia 06/27/18 19:30 07/27/18 19:29 Dextrose (Dextrose 50%) 50 ml Q30M PRN IV Hypoglycemia 06/27/18 19:30 07/27/18 19:29 Fluconazole/ Sodium Chloride 100 ml @ 100 mls/hr Q24H IV 06/28/18 01:30 07/05/18 01:29 06/29/18 01:52 Heparin Sodium (Porcine) (Heparin 5000 units/ml) 5,000 units EVERY 12 HOURS SUBQ 06/28/18 09:00 07/28/18 08:59 Lactated Ringer's 1,000 ml @ 125 mls/hr Q8H IV 06/28/18 00:00 07/28/18 00:00 06/29/18 08:13 Midazolam HCl (Versed 2mg/2ml vial) 1 mg Q1H PRN IVP ANXIETY 06/28/18 19:45 07/28/18 19:44 Morphine Sulfate (Morphine Sulfate) 2 mg Q3H PRN IVP FOR PAIN 06/28/18 10:30 07/05/18 10:29 06/29/18 08:12 Nitroglycerin (Ntg) 0.4 mg Q5M X 3 DOSES PRN SL Prn Chest Pain 06/27/18 19:30 07/27/18 19:29 Ondansetron HCl (Zofran) 4 mg Q6H PRN IVP Nausea & Vomiting 06/28/18 00:00 07/28/18 00:00 Pantoprazole (Protonix) 40 mg BID IVP 06/28/18 09:00 07/28/18 08:59 06/29/18 09:14 Piperacillin Sod/ Tazobactam Sod 2.25 gm/Dextrose 55 ml @ 110 mls/hr EVERY 6 HOURS IVPB 06/28/18 08:00 07/05/18 07:59 06/29/18 06:10 Potassium Chloride 40 meq/ Sodium Chloride 570 ml @ 142.5 mls/ hr ONCE ONCE IVPB 06/29/18 11:00 06/29/18 14:59 Sodium Phosphate 30 mm/Sodium Chloride 285 ml @ 47.5 mls/hr ONCE ONCE IV 06/29/18 13:00 06/29/18 18:59 Temazepam (Restoril) 15 mg HSPRN PRN ORAL Insomnia 06/27/18 19:30 07/04/18 19:29 Walter Rodrigez MD Jun 29, 2018 10:57
[2018-06-29] MEDS ORDERED: Potassium Chloride 40 MEQ in Sodium Chloride 550 ML IVPB ONE (11:00)
--- NOTE | 2018-06-29 12:30 | NUR ---
NURSE NOTES: Patient VS stable at this time with no sign of acute distress. Patient still needs to be transferred to [facility]-surg. Will transfer when possible.
[2018-06-29] MEDS ORDERED: Sodium Phosphate 30 MM in NS 275 ML IV ONE (13:00)
--- NOTE | 2018-06-29 14:30 | NUR ---
TRANSFER TO FLOOR: Patient transferred to 3rd floor, medica/surgical unit, per Dr Cabrera. Report given to ADRIEL Mckee. Belongings remain with patient. Family informed of transfer. Patient VS stable at this time. Patient on RA with oxygen saturation of 96%.
--- NOTE | 2018-06-29 14:35 | NUR ---
NURSE NOTES: Received report from ADRIEL King. Patient a/o x4 lying on the bed. No respiratory distress noted. c/o abdominal surgical site pain 5/10 and will be given pain medicine as MD ordered. NGT with low intermittent suction. Abdominal surgical dressing site is dry and intact. IV site is patent. Patient on NPO. Bed in lowest position, call light within reach. Will continue to monitor.
[2018-06-29] MEDS ORDERED: Nitroglycerin Subl 0.4mg tab SL PRN (14:45)
[2018-06-29] MEDS ORDERED: Midazolam 2mg/2ml Inj IVP PRN ×2 (14:45)
--- NOTE | 2018-06-29 16:01 | Internal Med Progress Note ---
Subjective Date of Service: Jun 29, 2018 Physician Name Tay Boothe Attending Physician Oseas Pelletier MD Current Medications Medications (Trade) Dose Ordered Sig/Marisol Route PRN Reason Start Time Stop Time Status Last Admin Dose Admin Dextrose (Dextrose 50%) 25 ml Q30M PRN IV Hypoglycemia 06/29/18 15:00 07/27/18 19:29 Dextrose (Dextrose 50%) 50 ml Q30M PRN IV Hypoglycemia 06/29/18 15:00 07/27/18 19:29 Fluconazole/ Sodium Chloride 100 ml @ 100 mls/hr Q24H IV 06/30/18 01:30 07/05/18 01:29 Heparin Sodium (Porcine) (Heparin 5000 units/ml) 5,000 units EVERY 12 HOURS SUBQ 06/29/18 21:00 07/28/18 08:59 Lactated Ringer's 1,000 ml @ 125 mls/hr Q8H IV 06/29/18 15:00 07/29/18 14:59 Morphine Sulfate (Morphine Sulfate) 2 mg Q3H PRN IVP FOR PAIN 06/29/18 15:00 07/05/18 14:59 06/29/18 15:25 Nitroglycerin (Ntg) 0.4 mg Q5M X 3 DOSES PRN SL Prn Chest Pain 06/29/18 14:45 07/27/18 19:29 Ondansetron HCl (Zofran) 4 mg Q6H PRN IVP Nausea & Vomiting 06/29/18 15:00 07/28/18 14:59 Pantoprazole (Protonix) 40 mg BID IVP 06/29/18 18:00 07/28/18 08:59 Piperacillin Sod/ Tazobactam Sod 3.375 gm/Sodium Chloride 110 ml @ 27.5 mls/hr Q8HR@0200,1000,1800 IVPB 06/29/18 18:00 07/06/18 17:59 Sodium Phosphate 30 mm/Sodium Chloride 285 ml @ 47.5 mls/hr ONCE ONCE IV 06/29/18 13:00 06/29/18 18:59 06/29/18 13:42 Temazepam (Restoril) 15 mg HSPRN PRN ORAL Insomnia 06/29/18 19:30 07/04/18 19:29 Allergies: Coded Allergies: No Known Allergies (Unverified , 01/11/13) ROS Limited/Unobtainable: No Constitutional: Reports: no symptoms HEENT: Reports: no symptoms Cardiovascular: Reports: no symptoms Respiratory: Reports: no symptoms Gastrointestinal/Abdominal: Reports: abdominal pain Genitourinary: Reports: no symptoms Neurologic/Psychiatric: Reports: no symptoms Subjective 47 YO F admitted with abdominal pain. Now perforated gastric viscus. Cover for Int romero-Dr Pelletier. S/P expl laparotomy 06/27/18. ICU Objective Last Vital Signs Date Time Temp Pulse Resp B/P (MAP) Pulse Ox O2 Delivery O2 Flow Rate FiO2 06/29/18 14:00 107 25 141/73 (95) 94 06/29/18 12:00 Venturi Mask 12.0 Venturi Mask 06/29/18 12:00 98.8 06/28/18 20:40 50 Laboratory Tests Test 06/29/18 04:10 White Blood Count 11.7 K/UL (4.8-10.8) H Red Blood Count 3.13 M/UL (4.20-5.40) L Hemoglobin 7.5 G/DL (12.0-16.0) L Hematocrit 24.0 % (37.0-47.0) L Mean Corpuscular Volume 76 FL (80-99) L Mean Corpuscular Hemoglobin 24.0 PG (27.0-31.0) L Mean Corpuscular Hemoglobin Concent 31.4 G/DL (32.0-36.0) L Red Cell Distribution Width 19.3 % (11.6-14.8) H Platelet Count 358 K/UL (150-450) Mean Platelet Volume 6.4 FL (6.5-10.1) L Neutrophils (%) (Auto) % (45.0-75.0) Lymphocytes (%) (Auto) % (20.0-45.0) Monocytes (%) (Auto) % (1.0-10.0) Eosinophils (%) (Auto) % (0.0-3.0) Basophils (%) (Auto) % (0.0-2.0) Differential Total Cells Counted 100 Neutrophils % (Manual) 87 % (45-75) H Lymphocytes % (Manual) 10 % (20-45) L Monocytes % (Manual) 3 % (1-10) Eosinophils % (Manual) 0 % (0-3) Basophils % (Manual) 0 % (0-2) Band Neutrophils 0 % (0-8) Platelet Estimate Adequate Platelet Morphology Normal Hypochromasia 2+ Anisocytosis 2+ Microcytosis 1+ Erythrocyte Sedimentation Rate 115 MM/HR (0-20) H Sodium Level 146 MMOL/L (136-145) H Potassium Level 3.3 MMOL/L (3.5-5.1) L Chloride Level 110 MMOL/L (98-107) H Carbon Dioxide Level 22 MMOL/L (21-32) Anion Gap 14 mmol/L (5-15) Blood Urea Nitrogen 22 mg/dL (7-18) H Creatinine 0.7 MG/DL (0.55-1.30) # Estimat Glomerular Filtration Rate > 60 mL/min (>60) Glucose Level 79 MG/DL (74-106) Calcium Level 8.4 MG/DL (8.5-10.1) L Phosphorus Level 2.3 MG/DL (2.5-4.9) L Magnesium Level 2.1 MG/DL (1.8-2.4) Total Bilirubin 0.4 MG/DL (0.2-1.0) Aspartate Amino Transf (AST/SGOT) 32 U/L (15-37) Alanine Aminotransferase (ALT/SGPT) 21 U/L (12-78) Alkaline Phosphatase 73 U/L (46-116) C-Reactive Protein, Quantitative 33.0 mg/dL (0.00-0.90) H Total Protein 6.4 G/DL (6.4-8.2) Albumin 2.0 G/DL (3.4-5.0) L Globulin 4.4 g/dL Albumin/Globulin Ratio 0.5 (1.0-2.7) L Microbiology Date/Time Source Procedure Growth Status 06/27/18 15:55 Urine,Clean Catch Urine Culture - Final Mixed Gram Positive Organism Complete 06/27/18 21:40 Abdominal Fluid Gram Stain - Final Resulted 06/27/18 21:40 Aerobic Culture - Preliminary Gram Negative Jeromy Resulted 06/27/18 21:40 Abdominal Fluid Anaerobic Culture - Preliminary Resulted Intake and Output 06/28/18 06/29/18 19:00 07:00 Intake Total 3146.5 ml 1655 ml Output Total 935 ml 1570 ml Balance 2211.5 ml 85 ml Intake IV Total 3146.5 ml 1655 ml Output Urine Total 935 ml 870 ml Other 700 ml Objective PHYSICAL EXAMINATION: VITAL SIGNS: On admission, temperature 98.8, pulse 116, respirations 24, and blood pressure 96/73. GENERAL: The patient is awake and responsive, in no acute distress at this time. HEAD AND NECK: Pupils are equal and reactive. Extraocular movements are intact. Neck was supple. No JVD. The patient has a NG tube to intermittent suction. LUNGS: Good air entry. No wheezes or rhonchi. Decreased air in bases. HEART: S1, S2. Tachycardic. No murmur or gallop. ABDOMEN: Soft. Generalized tenderness. Midline surgical incision from the recent abdominal surgery. EXTREMITIES: No cyanosis, clubbing, or edema. NEUROLOGIC: Cranial nerves II through XII grossly normal. Moves all four extremities. Gait is intact. Assessment/Plan Assessment/Plan ASSESSMENT: 1. Abdominal pain, most likely secondary to perforated gastric viscus. 2. Acute kidney injury/acute tubular necrosis. 3. Peritonitis. 4. History of gastric ulcer. 5. Acute anemia, most likely secondary to acute blood loss. 6. Severe dehydration. 7. History of chronic inflammatory demyelinating polyneuropathy. PLAN: 1. Admit the patient to ICU. 2. S/P exploratory laparotomy, repair of gastric perforation and partial omemtectomy 06/27/[address] Grady recommendation from General Surgery Dr. Pat from Pulmonary Critical Care. 3. Broad spectrum antibiotics with Zosyn and Diflucan. 4. We will follow up with the pain medication. 5. Code status is Full Code. 6. We will try to attempt extubation today. 7. For DVT will be SCD, Protonix IV twice a day. Tay Boothe MD Jun 29, 2018 16:01
[2018-06-29] MEDS: Zosyn 3.375gm q8h **Extended infusion IVPB SCH ×2 (17:21)
[2018-06-29] MEDS ORDERED: Piperacillin/Tazobactam 2.25 GM in D5W 55 ML IVPB SCH (18:00)
--- NOTE | 2018-06-29 18:55 | General Progress Note ---
Progress Note Progress Note doing well post op wanting food and drink today but told no labs noted exam improved, abd soft, nd, incision tender as anticipated npo iv fluids ng tube ambulate and out of bed incentive spirometry cont Rx as written Maurice Grady Jun 29, 2018 18:55
--- NOTE | 2018-06-29 19:45 | NUR ---
HAND-OFF: Report given to ADRIEL Smith. Patient in stable condition.
--- NOTE | 2018-06-29 19:51 | NUR ---
NURSE NOTES: Patient is aox4, room air. No pain noted. NG tube @ low intermittent suctioning. IV fluids running. Abdominal dressing c/d/i. Oliveira catheter draining well, urine yellow. Family at bedside. Bed low, call light within reach. Addendum: 06/29/18 at 2202 by CAMRON ARBOLEDA RN NG tube output green Addendum: 06/30/18 at 0442 by CAMRON ARBOLEDA RN bowel sounds present, hypoactive
--- NOTE | 2018-06-29 20:23 | Cardiology Report ---
APPROVED REPORT EKG Measurement Heart [id number] 104P [id number] Sinus tachycardia Rightward axis Nonspecific ST and T wave abnormality Abnormal ECG
[2018-06-30] VITALS: BP 136/72
[2018-06-30] MEDS: Zosyn 3.375gm q8h **Extended infusion IVPB SCH ×6 (01:55→17:50)
[2018-06-30 04:00] VITALS: BP 147/79
[2018-06-30] MEDS: Morphine Sulfate 2mg/ml Inj(IV/IM USE ONLY) IVP PRN ×4 (06:35→23:14)
--- NOTE | 2018-06-30 07:25 | NUR ---
NURSE NOTES: Patient had 1 small normal BM
[2018-06-30 07:39] LABS: BASOPHILS % (AUTO) 0.4 % (0.0-2.0); EOSINOPHILS % (AUTO) 1.2 % (0.0-3.0); HEMATOCRIT 26.2 % (37.0-47.0); LYMPHOCYTES % (AUTO) 8.7 % (20.0-45.0); MEAN CORPUSCULAR VOLUME 76 FL (80-99); MONOCYTES % (AUTO) 6.2 % (1.0-10.0); NEUTROPHILS % (AUTO) 83.6 % (45.0-75.0); PLATELET COUNT 399 K/UL (150-450); RED BLOOD COUNT 3.43 M/UL (4.20-5.40); RED CELL DISTRIBUTION WIDTH 19.6 % (11.6-14.8); WHITE BLOOD COUNT 16.5 K/UL (4.8-10.8)
[2018-06-30] MEDS: LR 1000ml 1,000 ML IV SCH ×3 (07:46→23:00)
--- NOTE | 2018-06-30 07:50 | NUR ---
HAND-OFF: Report given to ADRIEL Cazares. Patient stable.
[2018-06-30 08:00] VITALS: BP 148/78
--- NOTE | 2018-06-30 08:01 | NUR ---
NURSE NOTES: Received report from Sarah MOREL. Patient is awake alert and oriented x4, no acute distress noted. Patient reporting pain is getting "much better" after medication administration, reporting some discomfort in throat. Right nare NGT in place to low intermittent suction. Abdominal dressing c/d/i. IV's intact and asymptomatic, running per order. Strict NPO maintained. Side rails upx3, bed low and locked, call light in reach. Will continue to monitor.
[2018-06-30 08:23] LABS: ALANINE AMINOTRANSFERASE 26 U/L (12-78); ALBUMIN 2.2 G/DL (3.4-5.0); ALBUMIN/GLOBULIN RATIO 0.5 (1.0-2.7); ALKALINE PHOSPHATASE 88 U/L (46-116); ANION GAP 20 mmol/L (5-15); ASPARTATE AMINO TRANSFERASE 36 U/L (15-37); BILIRUBIN,TOTAL 0.5 MG/DL (0.2-1.0); BLOOD UREA NITROGEN 11 mg/dL (7-18); CALCIUM 8.9 MG/DL (8.5-10.1); CARBON DIOXIDE 19 MMOL/L (21-32); CHLORIDE 107 MMOL/L (98-107); CREATININE 0.6 MG/DL (0.55-1.30); PHOSPHORUS 2.8 MG/DL (2.5-4.9); SODIUM 146 MMOL/L (136-145)
[2018-06-30 08:37] LABS: POTASSIUM 2.5 MMOL/L (3.5-5.1)
--- NOTE | 2018-06-30 08:44 | NUR ---
NURSE NOTES: Called Dr. Pelletier and left voicemail with MD reporting critical lab value of potassium 2.5. Documented on critical lab intervention. Also reported WBC, Hbg, and Mag to MD. Awaiting call back from MD with further orders. Charge nurse aware. Will continue to monitor.
[2018-06-30] MEDS: Pantoprazole Inj IVP SCH ×2 (09:35→17:50)
[2018-06-30] MEDS: Heparin 5000 units/ml inj SUBQ SCH ×2 (09:36→20:02)
[2018-06-30] MEDS: Chloraseptic Spray 20mL Bottle ORAL PRN ×4 (09:36→23:09)
--- NOTE | 2018-06-30 09:50 | NUR ---
NURSE NOTES: Called Dr. Pelletier for the second time to report critical value of potassium 2.5. Left voicemail with MD. Documented on critical value intervention. Awaiting call back from MD with further orders. Charge nurse aware. Will continue to monitor.
--- NOTE | 2018-06-30 10:59 | NUR ---
NURSE NOTES: Have not yet received call back from Dr. Pelletier regarding critical lab value. Notified senior warehouse clerk. Appointment Manager aware. Documented on critical lab intervention. Will continue to monitor.
[2018-06-30] MEDS ORDERED: Potassium Chloride 40 MEQ in Sodium Chloride 550 ML IVPB ONE (11:00)
--- NOTE | 2018-06-30 11:47 | NUR ---
NURSE NOTES: Order for potassium replacement received by charge nurse. Order entered. Dr. Grady and Dr. Cabrera aware of patient's potassium and gave same order. Will carry out.
[2018-06-30 12:00] VITALS: BP 128/73
[2018-06-30] MEDS ORDERED: Sodium Phosphate 30 MM in NS 275 ML IV ONE (13:00)
--- NOTE | 2018-06-30 13:00 | NUR ---
NURSE NOTES: Dr. Grady saw patient at the bedside. Aware of patient's lab results. MD reported that plan of care is to remain the same and to continue with strict NPO. Will continue to monitor.
--- NOTE | 2018-06-30 13:13 | NUR ---
NURSE NOTES: Received call from Dr. Pelletier. Informed MD that patient received order for potassium replacement. Reported patient's magnesium of 1.2. MD ordered for magnesium replacement. Order entered. Will carry out as ordered.
--- NOTE | 2018-06-30 14:23 | Pulmonology Progress Note ---
Assessment/Plan Problems: (1) Gastric ulcer (2) Perforated abdominal viscus (3) Bowel perforation (4) ATN (acute tubular necrosis) (5) Peritonitis Assessment/Plan iv fluids npo iv abx check cultrues check electrolytes Subjective ROS Limited/Unobtainable: No Constitutional: Reports: no symptoms HEENT: Repors: no symptoms Allergies: Coded Allergies: No Known Allergies (Unverified , 01/11/13) Objective Last 24 Hour Vital Signs Date Time Temp Pulse Resp B/P (MAP) Pulse Ox O2 Delivery O2 Flow Rate FiO2 06/30/18 12:00 98.7 61 18 128/73 (91) 98 06/30/18 08:00 98.3 86 19 148/78 (101) 97 06/30/18 04:00 98.3 93 19 147/79 (101) 96 06/30/18 00:00 98.4 99 19 136/72 (93) 96 06/29/18 21:00 Room Air Room Air 06/29/18 20:00 98.7 101 18 135/73 (93) 96 06/29/18 20:00 Room Air 21 06/29/18 20:00 95 Room Air 21 06/29/18 16:00 98.1 107 22 144/83 (103) 94 Intake and Output 06/29/18 06/30/18 19:00 07:00 Intake Total 1625.00 ml 1375 ml Output Total 4820 ml 2940 ml Balance -3195.00 ml -1565 ml Intake IV Total 1625.00 ml 1375 ml Output Urine Total 1720 ml 2000 ml Other 3100 ml 940 ml # Bowel Movements 1 General Appearance: WD/WN HEENT: atraumatic, PERRL Respiratory/Chest: lungs clear, no accessory muscle use Cardiovascular: regular rhythm, regularly irregular Abdomen: soft, non tender, no mass Extremities: no clubbing Microbiology Date/Time Source Procedure Growth Status 06/27/18 15:55 Urine,Clean Catch Urine Culture - Final Mixed Gram Positive Organism Complete 06/27/18 21:40 Abdominal Fluid Gram Stain - Final Resulted 06/27/18 21:40 Aerobic Culture - Preliminary Escherichia Coli Resulted 06/27/18 21:40 Abdominal Fluid Anaerobic Culture - Preliminary Resulted Laboratory Tests 06/30/18 06:11: White Blood Count 16.5H, Red Blood Count 3.43L, Hemoglobin 8.0L, Hematocrit 26.2L, Mean Corpuscular Volume 76L, Mean Corpuscular Hemoglobin 23.4L, Mean Corpuscular Hemoglobin Concent 30.8L, Red Cell Distribution Width 19.6H, Platelet Count 399, Mean Platelet Volume 5.6L, Neutrophils (%) (Auto) 83.6H, Lymphocytes (%) (Auto) 8.7L, Monocytes (%) (Auto) 6.2, Eosinophils (%) (Auto) 1.2, Basophils (%) (Auto) 0.4, Sodium Level 146H, Potassium Level 2.5*L, Chloride Level 107, Carbon Dioxide Level 19L, Anion Gap 20H, Blood Urea Nitrogen 11, Creatinine 0.6, Estimat Glomerular Filtration Rate > 60, Glucose Level 46L, Calcium Level 8.9, Phosphorus Level 2.8, Magnesium Level 1.2L, Total Bilirubin 0.5, Aspartate Amino Transf (AST/SGOT) 36, Alanine Aminotransferase ( ALT/SGPT) 26, Alkaline Phosphatase 88, Total Protein 6.9, Albumin 2.2L, Globulin 4.7, Albumin/Globulin Ratio 0.5L Current Medications Medications (Trade) Dose Ordered Sig/Marisol Route PRN Reason Start Time Stop Time Status Last Admin Dose Admin Dextrose (Dextrose 50%) 25 ml Q30M PRN IV Hypoglycemia 06/29/18 15:00 07/27/18 19:29 Dextrose (Dextrose 50%) 50 ml Q30M PRN IV Hypoglycemia 06/29/18 15:00 07/27/18 19:29 Fluconazole/ Sodium Chloride 100 ml @ 100 mls/hr Q24H IV 06/30/18 01:30 07/05/18 01:29 06/30/18 01:56 Heparin Sodium (Porcine) (Heparin 5000 units/ml) 5,000 units EVERY 12 HOURS SUBQ 06/29/18 21:00 07/28/18 08:59 06/30/18 09:36 Lactated Ringer's 1,000 ml @ 125 mls/hr Q8H IV 06/29/18 15:00 07/29/18 14:59 06/30/18 07:46 Magnesium Sulfate 100 ml @ 100 mls/hr Q1H IVPB 06/30/18 16:00 06/30/18 17:59 Morphine Sulfate (Morphine Sulfate) 2 mg Q3H PRN IVP FOR PAIN 06/29/18 15:00 07/05/18 14:59 06/30/18 06:35 Nitroglycerin (Ntg) 0.4 mg Q5M X 3 DOSES PRN SL Prn Chest Pain 06/29/18 14:45 07/27/18 19:29 Ondansetron HCl (Zofran) 4 mg Q6H PRN IVP Nausea & Vomiting 06/29/18 15:00 07/28/18 14:59 06/30/18 06:27 Pantoprazole (Protonix) 40 mg BID IVP 06/29/18 18:00 07/28/18 08:59 06/30/18 09:35 Phenol/Menthol (Chloraseptic) 1 spray Q3H PRN ORAL sore throat 06/30/18 00:30 07/30/18 00:29 06/30/18 09:36 Piperacillin Sod/ Tazobactam Sod 3.375 gm/Sodium Chloride 110 ml @ 27.5 mls/hr Q8HR@0200,1000,1800 IVPB 06/29/18 18:00 07/06/18 17:59 06/30/18 10:23 Potassium Chloride 100 ml @ 100 mls/hr Q1HR IVPB 06/30/18 12:00 06/30/18 15:59 06/30/18 13:18 Temazepam (Restoril) 15 mg HSPRN PRN ORAL Insomnia 06/29/18 19:30 07/04/18 19:29 Allie Cabrera MD Jun 30, 2018 14:23
--- NOTE | 2018-06-30 15:34 | Internal Med Progress Note ---
Subjective Date of Service: Jun 30, 2018 Physician Name Tay Boothe Attending Physician Oseas Pelletier MD Current Medications Medications (Trade) Dose Ordered Sig/Marisol Route PRN Reason Start Time Stop Time Status Last Admin Dose Admin Dextrose (Dextrose 50%) 25 ml Q30M PRN IV Hypoglycemia 06/29/18 15:00 07/27/18 19:29 Dextrose (Dextrose 50%) 50 ml Q30M PRN IV Hypoglycemia 06/29/18 15:00 07/27/18 19:29 Fluconazole/ Sodium Chloride 100 ml @ 100 mls/hr Q24H IV 06/30/18 01:30 07/05/18 01:29 06/30/18 01:56 Heparin Sodium (Porcine) (Heparin 5000 units/ml) 5,000 units EVERY 12 HOURS SUBQ 06/29/18 21:00 07/28/18 08:59 06/30/18 09:36 Lactated Ringer's 1,000 ml @ 125 mls/hr Q8H IV 06/29/18 15:00 07/29/18 14:59 06/30/18 07:46 Magnesium Sulfate 100 ml @ 100 mls/hr Q1H IVPB 06/30/18 16:00 06/30/18 17:59 Morphine Sulfate (Morphine Sulfate) 2 mg Q3H PRN IVP FOR PAIN 06/29/18 15:00 07/05/18 14:59 06/30/18 06:35 Nitroglycerin (Ntg) 0.4 mg Q5M X 3 DOSES PRN SL Prn Chest Pain 06/29/18 14:45 07/27/18 19:29 Ondansetron HCl (Zofran) 4 mg Q6H PRN IVP Nausea & Vomiting 06/29/18 15:00 07/28/18 14:59 06/30/18 06:27 Pantoprazole (Protonix) 40 mg BID IVP 06/29/18 18:00 07/28/18 08:59 06/30/18 09:35 Phenol/Menthol (Chloraseptic) 1 spray Q3H PRN ORAL sore throat 06/30/18 00:30 07/30/18 00:29 06/30/18 14:43 Piperacillin Sod/ Tazobactam Sod 3.375 gm/Sodium Chloride 110 ml @ 27.5 mls/hr Q8HR@0200,1000,1800 IVPB 06/29/18 18:00 07/06/18 17:59 06/30/18 10:23 Potassium Chloride 100 ml @ 100 mls/hr Q1HR IVPB 06/30/18 12:00 06/30/18 15:59 06/30/18 14:39 Temazepam (Restoril) 15 mg HSPRN PRN ORAL Insomnia 06/29/18 19:30 07/04/18 19:29 Allergies: Coded Allergies: No Known Allergies (Unverified , 01/11/13) ROS Limited/Unobtainable: No Constitutional: Reports: no symptoms HEENT: Reports: no symptoms Cardiovascular: Reports: no symptoms Respiratory: Reports: no symptoms Gastrointestinal/Abdominal: Reports: abdominal pain Genitourinary: Reports: no symptoms Neurologic/Psychiatric: Reports: no symptoms Subjective 47 YO F admitted with abdominal pain. Now perforated gastric viscus. Cover for Int romero-Dr Pelletier. S/P expl laparotomy 06/27/18. Objective Last Vital Signs Date Time Temp Pulse Resp B/P (MAP) Pulse Ox O2 Delivery O2 Flow Rate FiO2 06/30/18 12:00 98.7 61 18 128/73 (91) 98 06/30/18 09:00 Room Air Room Air 06/29/18 20:00 21 06/29/18 12:00 12.0 Laboratory Tests Test 06/30/18 06:11 White Blood Count 16.5 K/UL (4.8-10.8) H Red Blood Count 3.43 M/UL (4.20-5.40) L Hemoglobin 8.0 G/DL (12.0-16.0) L Hematocrit 26.2 % (37.0-47.0) L Mean Corpuscular Volume 76 FL (80-99) L Mean Corpuscular Hemoglobin 23.4 PG (27.0-31.0) L Mean Corpuscular Hemoglobin Concent 30.8 G/DL (32.0-36.0) L Red Cell Distribution Width 19.6 % (11.6-14.8) H Platelet Count 399 K/UL (150-450) Mean Platelet Volume 5.6 FL (6.5-10.1) L Neutrophils (%) (Auto) 83.6 % (45.0-75.0) H Lymphocytes (%) (Auto) 8.7 % (20.0-45.0) L Monocytes (%) (Auto) 6.2 % (1.0-10.0) Eosinophils (%) (Auto) 1.2 % (0.0-3.0) Basophils (%) (Auto) 0.4 % (0.0-2.0) Sodium Level 146 MMOL/L (136-145) H Potassium Level 2.5 MMOL/L (3.5-5.1) *L Chloride Level 107 MMOL/L (98-107) Carbon Dioxide Level 19 MMOL/L (21-32) L Anion Gap 20 mmol/L (5-15) H Blood Urea Nitrogen 11 mg/dL (7-18) Creatinine 0.6 MG/DL (0.55-1.30) Estimat Glomerular Filtration Rate > 60 mL/min (>60) Glucose Level 46 MG/DL (74-106) L Calcium Level 8.9 MG/DL (8.5-10.1) Phosphorus Level 2.8 MG/DL (2.5-4.9) Magnesium Level 1.2 MG/DL (1.8-2.4) L Total Bilirubin 0.5 MG/DL (0.2-1.0) Aspartate Amino Transf (AST/SGOT) 36 U/L (15-37) Alanine Aminotransferase (ALT/SGPT) 26 U/L (12-78) Alkaline Phosphatase 88 U/L (46-116) Total Protein 6.9 G/DL (6.4-8.2) Albumin 2.2 G/DL (3.4-5.0) L Globulin 4.7 g/dL Albumin/Globulin Ratio 0.5 (1.0-2.7) L Microbiology Date/Time Source Procedure Growth Status 06/27/18 15:55 Urine,Clean Catch Urine Culture - Final Mixed Gram Positive Organism Complete 06/27/18 21:40 Abdominal Fluid Gram Stain - Final Resulted 06/27/18 21:40 Aerobic Culture - Preliminary Escherichia Coli Resulted 06/27/18 21:40 Abdominal Fluid Anaerobic Culture - Preliminary Resulted Intake and Output 06/29/18 06/30/18 19:00 07:00 Intake Total 1625.00 ml 1375 ml Output Total 4820 ml 2940 ml Balance -3195.00 ml -1565 ml Intake IV Total 1625.00 ml 1375 ml Output Urine Total 1720 ml 2000 ml Other 3100 ml 940 ml # Bowel Movements 1 Objective PHYSICAL EXAMINATION: VITAL SIGNS: On admission, temperature 98.8, pulse 116, respirations 24, and blood pressure 96/73. GENERAL: The patient is awake and responsive, in no acute distress at this time. HEAD AND NECK: Pupils are equal and reactive. Extraocular movements are intact. Neck was supple. No JVD. The patient has a NG tube to intermittent suction. LUNGS: Good air entry. No wheezes or rhonchi. Decreased air in bases. HEART: S1, S2. Tachycardic. No murmur or gallop. ABDOMEN: Soft. Generalized tenderness. Midline surgical incision from the recent abdominal surgery. EXTREMITIES: No cyanosis, clubbing, or edema. NEUROLOGIC: Cranial nerves II through XII grossly normal. Moves all four extremities. Gait is intact. Assessment/Plan Assessment/Plan ASSESSMENT: 1. Abdominal pain, most likely secondary to perforated gastric viscus. 2. Acute kidney injury/acute tubular necrosis. 3. Peritonitis. 4. History of gastric ulcer. 5. Acute anemia, most likely secondary to acute blood loss. 6. Severe dehydration. 7. History of chronic inflammatory demyelinating polyneuropathy. PLAN: 1. Admit the patient to ICU. 2. S/P exploratory laparotomy, repair of gastric perforation and partial omemtectomy 06/27/[address] Grady recommendation from General Surgery Dr. Pat from Pul[facility]. 3. Broad spectrum antibiotics with Zosyn and Diflucan. 4. We will follow up with the pain medication. 5. Code status is Full Code. 6. We will try to attempt extubation today. 7. For DVT will be SCD, Protonix IV twice a day. Tay Boothe MD Jun 30, 2018 15:34
[2018-06-30 16:00] VITALS: BP 154/87
--- NOTE | 2018-06-30 16:47 | NUR ---
CASE MANAGEMENT: REVIEW 06/29/2018 SI:LOWER GI BLEED T 98.8 HR 106 RR 22 B/P 144/82 SATS 97% ON 12L/VENTURI MASK WBC 11.7 HGB 7.5 HCT 24 NA 146 K 3.3 CL 110 BUN 22 CA 8.4 PHOS 2.3 IS: LR @ 125 mL/HR PROTONIIX IV BID MG SULFATE IV Q1H FLUCONAZOLE IV Q24H ZOSYN IV Q8H MED/SURG STATUS PLAN OF CARE: AMBULATE OOB IVF NPO 06/30/2018 SI:LOWER GI BLEED T 98.6 HR 99 RR 19 B/P 154/87 SATS 93% ON RA WBC 16.5 NA 146 K 2.5 CO2 19 BUN 20 GLU 46 MG 1.2 IS: LR @ 125 mL/HR PROTONIX IV BID MG SULFATE IV Q1H FLUCONAZOLE IV Q24H ZOSYN IV Q8H MED/SURG STATUS PLAN OF CARE: AMBULATE OOB IVF NPO
--- NOTE | 2018-06-30 19:42 | NUR ---
HAND-OFF: Report given to Cruz MOREL. Patient is in stable condition.
--- NOTE | 2018-06-30 19:43 | NUR ---
NURSE NOTES: Report taken from ADRIEL Cazares. Patient fatigued, responsive to name, A&Ox4. No signs of distress on room air, O2 treatment at bedside. Intermittent suction through NG, right nare, c/d/i patent, flowing green fluid. Patient IV lines, Right and left arm, both c/d/i and patent, multiple bags present, continue to monitor IV treatments. Oliveira c/d/i and flowing yellow urine. She is having constant abdominal pain with some radiating to her back, 7/10 pain. Continue to monitor patient, bed in lowest position, call light within reach. Addendum: 07/01/18 at 0147 by Cruz Mccarthy RN Surgical site c/d/i, changed during previous shift.
[2018-06-30 20:00] VITALS: BP 152/82
--- NOTE | 2018-06-30 21:24 | General Progress Note ---
Progress Note Progress Note leukocytosis. no fevers. HD stable. exam improved. had large BM today. no n/ v/f/c. ng tube output clear gastric. pain improved. wound c/d/i. trend labs iv abx need to keep close eye on her strict npo plan for contrast upper GI sunday to eval repair Maurice Grady Jun 30, 2018 21:24
[2018-07-01] VITALS (7 sets, daily range): BP systolic 136–160; BP diastolic 79–86
--- NOTE | 2018-07-01 01:00 | NUR ---
NURSE NOTES: Patient asked for sleeping medication. Contacted MD for IV medication. Awaiting call back.
[2018-07-01] MEDS: LR 1000ml 1,000 ML IV SCH (02:25)
[2018-07-01] MEDS: Zosyn 3.375gm q8h **Extended infusion IVPB SCH ×4 (02:25→10:26)
[2018-07-01] MEDS: Chloraseptic Spray 20mL Bottle ORAL PRN ×2 (06:09→16:31)
[2018-07-01] MEDS: Morphine Sulfate 2mg/ml Inj(IV/IM USE ONLY) IVP PRN ×3 (06:10→18:32)
--- NOTE | 2018-07-01 07:29 | NUR ---
HAND-OFF: Report given to ADRIEL Cazares. Patient awake and VS stable.
--- NOTE | 2018-07-01 07:45 | NUR ---
NURSE NOTES: Received report from Cruz MOREL. Patient is awake alert and oriented x4, no acute distress noted. Right nare NGT to low intermittent suction. IVF running per order. IV's intact and asymptomatic. Abdominal dressing c/d/i. SCD's in place. Oliveira to gravity drainage. Side rails upx3, bed low and locked, call light in reach. Will continue to monitor.
[2018-07-01 07:59] LABS: HEMOGLOBIN 8.9 G/DL (12.0-16.0); MEAN CORPUSCULAR VOLUME 76 FL (80-99); PLATELET COUNT 453 K/UL (150-450); RED BLOOD COUNT 3.81 M/UL (4.20-5.40); RED CELL DISTRIBUTION WIDTH 19.5 % (11.6-14.8); WHITE BLOOD COUNT 18.6 K/UL (4.8-10.8)
[2018-07-01 08:39] LABS: ANION GAP 22 mmol/L (5-15); BLOOD UREA NITROGEN 5 mg/dL (7-18); CALCIUM 8.7 MG/DL (8.5-10.1); CARBON DIOXIDE 18 MMOL/L (21-32); CHLORIDE 104 MMOL/L (98-107); CREATININE 0.6 MG/DL (0.55-1.30); SODIUM 144 MMOL/L (136-145)
[2018-07-01 08:42] LABS: POTASSIUM 2.4 MMOL/L (3.5-5.1)
--- NOTE | 2018-07-01 09:33 | NUR ---
*-* INSURANCE *-* UPDATED CLINICALS AND REVIEWS HAVE BEEN FAXED TO: [facility] ([facility] [place] P- [phone] F- [phone]....IF NEEDED F/S FAXED TO [employer] [facility]UI# [phone] NO CART DRIVER ASSIGNED AT THIS TIME PLEASE FAX THE REVIEW/CLINICAL P- [phone] F- [phone]
--- NOTE | 2018-07-01 09:45 | NUR ---
NURSE NOTES: Received report from charge nurse regarding 2 critical values for patient. Potassium 2.4 and blood sugar 36. Called Dr. Grady and reported to MD the critical potassium and blood glucose and also reported elevated WBC to MD. MD ordered to check blood sugar via finger stick and if indicated give dextrose as ordered. Checked blood glucose and blood glucose was 48. Pushed 50mL dextrose IV. Orders given for potassium replacement. Rechecked blood glucose and it is now 174. Reported to Dr. Grady. Will continue to monitor.
[2018-07-01] MEDS: Pantoprazole Inj IVP SCH ×2 (10:28→18:31)
[2018-07-01] MEDS: Heparin 5000 units/ml inj SUBQ SCH ×2 (10:32→20:34)
--- NOTE | 2018-07-01 10:37 | NUR ---
NURSE NOTES: Informed Dr. Grady that patient is positive for ESBL of abdominal fluids. MD is aware and stated he will contact infectious disease. No further orders.
--- NOTE | 2018-07-01 12:20 | Pulmonology Progress Note ---
Assessment/Plan Problems: (1) Gastric ulcer (2) Perforated abdominal viscus (3) Bowel perforation (4) ATN (acute tubular necrosis) (5) Peritonitis Assessment/Plan K supplement dextrose for hypoglycemia dc witt iv fluids npo iv abx check cultrues check electrolytes Subjective ROS Limited/Unobtainable: No Constitutional: Reports: no symptoms HEENT: Repors: no symptoms Respiratory: Reports: no symptoms Allergies: Coded Allergies: No Known Allergies (Unverified , 01/11/13) Objective Last 24 Hour Vital Signs Date Time Temp Pulse Resp B/P (MAP) Pulse Ox O2 Delivery O2 Flow Rate FiO2 07/01/18 08:00 98.1 80 19 136/81 (99) 96 07/01/18 04:00 98.3 77 20 143/79 (100) 95 07/01/18 00:21 99.3 98 20 154/80 (104) 95 06/30/18 21:00 Room Air Room Air 06/30/18 20:00 99.5 102 20 152/82 (105) 94 06/30/18 16:00 98.6 99 19 154/87 (109) 93 Intake and Output 06/30/18 07/01/18 19:00 07:00 Intake Total 55.0 ml Output Total 2000 ml 2950 ml Balance -1945.0 ml -2950 ml Intake IV Total 55.0 ml Output Urine Total 2000 ml 1475 ml Gastric Drainage Total 1250 ml Other 225 ml # Bowel Movements 3 General Appearance: WD/WN HEENT: normocephalic, anicteric Respiratory/Chest: chest wall non-tender, lungs clear Breasts: no masses Cardiovascular: normal rate Abdomen: normal bowel sounds, soft, non tender Laboratory Tests 07/01/18 06:02: White Blood Count 18.6H, Red Blood Count 3.81L, Hemoglobin 8.9L, Hematocrit 29.0L, Mean Corpuscular Volume 76L, Mean Corpuscular Hemoglobin 23.4L, Mean Corpuscular Hemoglobin Concent 30.7L, Red Cell Distribution Width 19.5H, Platelet Count 453H, Mean Platelet Volume 5.5L, Neutrophils (%) (Auto) , Lymphocytes (%) (Auto) , Monocytes (%) (Auto) , Eosinophils (%) (Auto) , Basophils (%) (Auto) , Differential Total Cells Counted 100, Neutrophils % ( Manual) 88H, Lymphocytes % (Manual) 3L, Monocytes % (Manual) 9, Eosinophils % ( Manual) 0, Basophils % (Manual) 0, Band Neutrophils 0, Platelet Estimate Adequate, Platelet Morphology Normal, Hypochromasia 1+, Anisocytosis 2+, Microcytosis 1+, Sodium Level 144, Potassium Level 2.4*L, Chloride Level 104, Carbon Dioxide Level 18L, Anion Gap 22H, Blood Urea Nitrogen 5L, Creatinine 0.6 , Estimat Glomerular Filtration Rate > 60, Glucose Level 36*L, Calcium Level 8.7 Current Medications Medications (Trade) Dose Ordered Sig/Marisol Route PRN Reason Start Time Stop Time Status Last Admin Dose Admin Dextrose (Dextrose 50%) 25 ml Q30M PRN IV Hypoglycemia 06/29/18 15:00 07/27/18 19:29 Dextrose (Dextrose 50%) 50 ml Q30M PRN IV Hypoglycemia 06/29/18 15:00 07/27/18 19:29 07/01/18 09:04 Fluconazole/ Sodium Chloride 100 ml @ 100 mls/hr Q24H IV 06/30/18 01:30 07/05/18 01:29 07/01/18 01:13 Heparin Sodium (Porcine) (Heparin 5000 units/ml) 5,000 units EVERY 12 HOURS SUBQ 06/29/18 21:00 07/28/18 08:59 07/01/18 10:32 Lactated Ringer's 1,000 ml @ 125 mls/hr Q8H IV 06/29/18 15:00 07/29/18 14:59 07/01/18 02:25 Morphine Sulfate (Morphine Sulfate) 2 mg Q3H PRN IVP FOR PAIN 06/29/18 15:00 07/05/18 14:59 07/01/18 06:10 Nitroglycerin (Ntg) 0.4 mg Q5M X 3 DOSES PRN SL Prn Chest Pain 06/29/18 14:45 07/27/18 19:29 Ondansetron HCl (Zofran) 4 mg Q6H PRN IVP Nausea & Vomiting 06/29/18 15:00 07/28/18 14:59 06/30/18 19:58 Pantoprazole (Protonix) 40 mg BID IVP 06/29/18 18:00 07/28/18 08:59 07/01/18 10:28 Phenol/Menthol (Chloraseptic) 1 spray Q3H PRN ORAL sore throat 06/30/18 00:30 07/30/18 00:29 07/01/18 06:09 Piperacillin Sod/ Tazobactam Sod 3.375 gm/Sodium Chloride 110 ml @ 27.5 mls/hr Q8HR@0200,1000,1800 IVPB 06/29/18 18:00 07/06/18 17:59 07/01/18 10:26 Potassium Chloride 100 ml @ 100 mls/hr Q1HR IVPB 07/01/18 10:00 07/01/18 15:59 07/01/18 11:59 Temazepam (Restoril) 15 mg HSPRN PRN ORAL Insomnia 06/29/18 19:30 07/04/18 19:29 Allie Cabrera MD Jul 01, 2018 12:20
--- NOTE | 2018-07-01 12:31 | GI Progress Note ---
Assessment/Plan Problems: (1) Peritonitis ICD Codes: K65.9 - Peritonitis, unspecified SNOMED: 32301901 (2) Surgical pneumoperitoneum ICD Codes: K66.8 - Other specified disorders of peritoneum SNOMED: 27229908 (3) Bowel perforation ICD Codes: K63.1 - Perforation of intestine (nontraumatic) SNOMED: 53103072 (4) Perforated abdominal viscus SNOMED: 187544546 (5) GI bleed ICD Codes: K92.2 - Gastrointestinal hemorrhage, unspecified SNOMED: 36670743 (6) Gastric ulcer ICD Codes: K25.9 - Gastric ulcer, unspecified as acute or chronic, without hemorrhage or perforation SNOMED: 388638732 Status: unchanged Status Narrative Discussed with Dr. Cedeño Assessment/Plan s/p surg npo ivf pain control ppi fu H&H fu surg recs The patient was seen and examined at bedside and all new and available data was reviewed in the patients chart. I agree with the above findings, impression and plan. (Patient seen earlier today. Signature stamp does not reflect patient encounter time.). - Conrad Cedeño MD Subjective Subjective Limited Objective Last 24 Hour Vital Signs Date Time Temp Pulse Resp B/P (MAP) Pulse Ox O2 Delivery O2 Flow Rate FiO2 07/01/18 08:00 98.1 80 19 136/81 (99) 96 07/01/18 04:00 98.3 77 20 143/79 (100) 95 07/01/18 00:21 99.3 98 20 154/80 (104) 95 06/30/18 21:00 Room Air Room Air 06/30/18 20:00 99.5 102 20 152/82 (105) 94 06/30/18 16:00 98.6 99 19 154/87 (109) 93 Intake and Output 06/30/18 07/01/18 19:00 07:00 Intake Total 55.0 ml Output Total 2000 ml 2950 ml Balance -1945.0 ml -2950 ml Intake IV Total 55.0 ml Output Urine Total 2000 ml 1475 ml Gastric Drainage Total 1250 ml Other 225 ml # Bowel Movements 3 Laboratory Tests Test 07/01/18 06:02 White Blood Count 18.6 K/UL (4.8-10.8) H Red Blood Count 3.81 M/UL (4.20-5.40) L Hemoglobin 8.9 G/DL (12.0-16.0) L Hematocrit 29.0 % (37.0-47.0) L Mean Corpuscular Volume 76 FL (80-99) L Mean Corpuscular Hemoglobin 23.4 PG (27.0-31.0) L Mean Corpuscular Hemoglobin Concent 30.7 G/DL (32.0-36.0) L Red Cell Distribution Width 19.5 % (11.6-14.8) H Platelet Count 453 K/UL (150-450) H Mean Platelet Volume 5.5 FL (6.5-10.1) L Neutrophils (%) (Auto) % (45.0-75.0) Lymphocytes (%) (Auto) % (20.0-45.0) Monocytes (%) (Auto) % (1.0-10.0) Eosinophils (%) (Auto) % (0.0-3.0) Basophils (%) (Auto) % (0.0-2.0) Differential Total Cells Counted 100 Neutrophils % (Manual) 88 % (45-75) H Lymphocytes % (Manual) 3 % (20-45) L Monocytes % (Manual) 9 % (1-10) Eosinophils % (Manual) 0 % (0-3) Basophils % (Manual) 0 % (0-2) Band Neutrophils 0 % (0-8) Platelet Estimate Adequate Platelet Morphology Normal Hypochromasia 1+ Anisocytosis 2+ Microcytosis 1+ Sodium Level 144 MMOL/L (136-145) Potassium Level 2.4 MMOL/L (3.5-5.1) *L Chloride Level 104 MMOL/L (98-107) Carbon Dioxide Level 18 MMOL/L (21-32) L Anion Gap 22 mmol/L (5-15) H Blood Urea Nitrogen 5 mg/dL (7-18) L Creatinine 0.6 MG/DL (0.55-1.30) Estimat Glomerular Filtration Rate > 60 mL/min (>60) Glucose Level 36 MG/DL (74-106) *L Calcium Level 8.7 MG/DL (8.5-10.1) Height (Feet): 5 Height (Inches): 5.00 Weight (Pounds): 126 General Appearance: WD/WN, no apparent distress, alert Cardiovascular: normal rate Respiratory/Chest: normal breath sounds, no respiratory distress Abdominal Exam: normal bowel sounds, non tender, soft Extremities: non-tender Tamara Adkins NP Jul 01, 2018 12:31
--- NOTE | 2018-07-01 13:37 | General Progress Note ---
Progress Note Progress Note afebrile, HD stable, states she feels okay. no n/v/f/c. had multiple BM's yesterday leukocytosis worsening micro noted and concerning npo iv fluids iv abx concerned for leak for developing abscess. will plan for upper GI contrast tomorrow to eval repair. thank you Maurice Grady Jul 01, 2018 13:37
--- NOTE | 2018-07-01 14:39 | NUR ---
CASE MANAGEMENT:REVIEW 07/01/18 SI: POD #3 S/P REPAIR OF GASTRIC PERFORATION AND PARTIAL OMENTECTOMY 98.1 80 19 136/81 96% ON RA WBC+18.6 H/H-8.9/29.0 K-2.4 GLUCOSE-36 IS: IV KCL @125/HR IV KCL Q1HRS X6 BAGS IF DIFLUCAN Q24 IV ZOSYN Q8HRS HEPARIN SQ Q12 IV PROTONIX BID : MED/SURG STATUS DCP: PATIENT IS FROM HOME PLAN: NPO IV ABX UPPER GI TOMORROW TO EVALUATE REPAIR
[2018-07-01] MEDS: D5NS w/KCl 40mEq 1000ml 1,000 ML IV SCH ×2 (14:53→23:08)
--- NOTE | 2018-07-01 15:03 | NUR ---
NURSE NOTES: Oliveira catheter removed per MD order. Patient tolerated well. Patient educated to inform RN when ready to void. Will continue to monitor.
--- NOTE | 2018-07-01 15:03 | Infectious Diseases Prog Note ---
Assessment/Plan Assessment/Plan Assessment: Gastric perforation Abd Cx: ESBL e.coli, yeast, b. fragilis -06/28 SP exploratory laparotomy; repair of gastric perforation with kary patch ;partial omentectomy -06/27 CT abd/p: Positive for pneumoperitoneum. This is concerning for bowel perforation. Location of perforation uncertain, but suspect duodenal or gastric antral ulcer. Marked small bowel dilatation. Suspect this represents ileus related to the above, although the possibility of distal small bowel obstruction should also be considered. Free intraperitoneal fluid, likely related to the above. Distal esophageal wall thickening, raises concern for esophagitis. 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 Subjective Allergies: Coded Allergies: No Known Allergies (Unverified , 01/11/13) Subjective afebrile >48hrs wbc improving Objective Vital Signs Last 24 Hour Vital Signs Date Time Temp Pulse Resp B/P (MAP) Pulse Ox O2 Delivery O2 Flow Rate FiO2 07/01/18 08:00 98.1 80 19 136/81 (99) 96 07/01/18 04:00 98.3 77 20 143/79 (100) 95 07/01/18 00:21 99.3 98 20 154/80 (104) 95 06/30/18 21:00 Room Air Room Air 06/30/18 20:00 99.5 102 20 152/82 (105) 94 06/30/18 16:00 98.6 99 19 154/87 (109) 93 Height (Feet): 5 Height (Inches): 5.00 Weight (Pounds): 126 Objective General Appearance: WD/WN, no apparent distress, alert Cardiovascular: normal rate Respiratory/Chest: normal breath sounds, no respiratory distress Abdominal Exam: normal bowel sounds, non tender, soft Extremities: non-tender Laboratory Tests Test 07/01/18 06:02 White Blood Count 18.6 K/UL (4.8-10.8) H Red Blood Count 3.81 M/UL (4.20-5.40) L Hemoglobin 8.9 G/DL (12.0-16.0) L Hematocrit 29.0 % (37.0-47.0) L Mean Corpuscular Volume 76 FL (80-99) L Mean Corpuscular Hemoglobin 23.4 PG (27.0-31.0) L Mean Corpuscular Hemoglobin Concent 30.7 G/DL (32.0-36.0) L Red Cell Distribution Width 19.5 % (11.6-14.8) H Platelet Count 453 K/UL (150-450) H Mean Platelet Volume 5.5 FL (6.5-10.1) L Neutrophils (%) (Auto) % (45.0-75.0) Lymphocytes (%) (Auto) % (20.0-45.0) Monocytes (%) (Auto) % (1.0-10.0) Eosinophils (%) (Auto) % (0.0-3.0) Basophils (%) (Auto) % (0.0-2.0) Differential Total Cells Counted 100 Neutrophils % (Manual) 88 % (45-75) H Lymphocytes % (Manual) 3 % (20-45) L Monocytes % (Manual) 9 % (1-10) Eosinophils % (Manual) 0 % (0-3) Basophils % (Manual) 0 % (0-2) Band Neutrophils 0 % (0-8) Platelet Estimate Adequate Platelet Morphology Normal Hypochromasia 1+ Anisocytosis 2+ Microcytosis 1+ Sodium Level 144 MMOL/L (136-145) Potassium Level 2.4 MMOL/L (3.5-5.1) *L Chloride Level 104 MMOL/L (98-107) Carbon Dioxide Level 18 MMOL/L (21-32) L Anion Gap 22 mmol/L (5-15) H Blood Urea Nitrogen 5 mg/dL (7-18) L Creatinine 0.6 MG/DL (0.55-1.30) Estimat Glomerular Filtration Rate > 60 mL/min (>60) Glucose Level 36 MG/DL (74-106) *L Calcium Level 8.7 MG/DL (8.5-10.1) Current Medications Medications (Trade) Dose Ordered Sig/Marisol Route PRN Reason Start Time Stop Time Status Last Admin Dose Admin Dextrose (Dextrose 50%) 25 ml Q30M PRN IV Hypoglycemia 06/29/18 15:00 07/27/18 19:29 Dextrose (Dextrose 50%) 50 ml Q30M PRN IV Hypoglycemia 06/29/18 15:00 07/27/18 19:29 07/01/18 09:04 Dextrose/ Electrolytes 1,000 ml @ 125 mls/hr Q8H IV 07/01/18 14:00 07/31/18 13:59 07/01/18 14:53 Fluconazole/ Sodium Chloride 100 ml @ 100 mls/hr Q24H IV 06/30/18 01:30 07/05/18 01:29 07/01/18 01:13 Heparin Sodium (Porcine) (Heparin 5000 units/ml) 5,000 units EVERY 12 HOURS SUBQ 06/29/18 21:00 07/28/18 08:59 07/01/18 10:32 Morphine Sulfate (Morphine Sulfate) 2 mg Q3H PRN IVP FOR PAIN 06/29/18 15:00 07/05/18 14:59 07/01/18 14:54 Nitroglycerin (Ntg) 0.4 mg Q5M X 3 DOSES PRN SL Prn Chest Pain 06/29/18 14:45 07/27/18 19:29 Ondansetron HCl (Zofran) 4 mg Q6H PRN IVP Nausea & Vomiting 06/29/18 15:00 07/28/18 14:59 06/30/18 19:58 Pantoprazole (Protonix) 40 mg BID IVP 06/29/18 18:00 07/28/18 08:59 07/01/18 10:28 Phenol/Menthol (Chloraseptic) 1 spray Q3H PRN ORAL sore throat 06/30/18 00:30 07/30/18 00:29 07/01/18 06:09 Piperacillin Sod/ Tazobactam Sod 3.375 gm/Sodium Chloride 110 ml @ 27.5 mls/hr Q8HR@0200,1000,1800 IVPB 06/29/18 18:00 07/06/18 17:59 07/01/18 10:26 Potassium Chloride 100 ml @ 100 mls/hr Q1HR IVPB 07/01/18 10:00 07/01/18 15:59 07/01/18 14:11 Temazepam (Restoril) 15 mg HSPRN PRN ORAL Insomnia 06/29/18 19:30 07/04/18 19:29 Elvia Yi M.D. Jul 01, 2018 15:03
[2018-07-01] MEDS: Ertapenem 1 GM in NS 55 ML IVPB SCH (17:29)
--- NOTE | 2018-07-01 17:44 | NUR ---
NURSE NOTES: Patient got OOB onto bedside commode with staff assistance. Voided 150mL of clear, yellow urine. Patient reported no pain or discomfort with urination. Assisted back into bed. Will continue to monitor.
--- NOTE | 2018-07-01 17:47 | Internal Med Progress Note ---
Subjective Date of Service: Jul 01, 2018 Physician Name Tay Boothe Attending Physician Oseas Pelletier MD Current Medications Medications (Trade) Dose Ordered Sig/Marisol Route PRN Reason Start Time Stop Time Status Last Admin Dose Admin Dextrose (Dextrose 50%) 25 ml Q30M PRN IV Hypoglycemia 06/29/18 15:00 07/27/18 19:29 Dextrose (Dextrose 50%) 50 ml Q30M PRN IV Hypoglycemia 06/29/18 15:00 07/27/18 19:29 07/01/18 09:04 Dextrose/ Electrolytes 1,000 ml @ 125 mls/hr Q8H IV 07/01/18 14:00 07/31/18 13:59 07/01/18 14:53 Ertapenem 1 gm/ Sodium Chloride 55 ml @ 110 mls/hr Q24H IVPB 07/01/18 17:00 07/06/18 16:59 07/01/18 17:29 Fluconazole/ Sodium Chloride 100 ml @ 100 mls/hr Q24H IV 06/30/18 01:30 07/05/18 01:29 07/01/18 01:13 Heparin Sodium (Porcine) (Heparin 5000 units/ml) 5,000 units EVERY 12 HOURS SUBQ 06/29/18 21:00 07/28/18 08:59 07/01/18 10:32 Morphine Sulfate (Morphine Sulfate) 2 mg Q3H PRN IVP FOR PAIN 06/29/18 15:00 07/05/18 14:59 07/01/18 14:54 Nitroglycerin (Ntg) 0.4 mg Q5M X 3 DOSES PRN SL Prn Chest Pain 06/29/18 14:45 07/27/18 19:29 Ondansetron HCl (Zofran) 4 mg Q6H PRN IVP Nausea & Vomiting 06/29/18 15:00 07/28/18 14:59 06/30/18 19:58 Pantoprazole (Protonix) 40 mg BID IVP 06/29/18 18:00 07/28/18 08:59 07/01/18 10:28 Phenol/Menthol (Chloraseptic) 1 spray Q3H PRN ORAL sore throat 06/30/18 00:30 07/30/18 00:29 07/01/18 16:31 Temazepam (Restoril) 15 mg HSPRN PRN ORAL Insomnia 06/29/18 19:30 07/04/18 19:29 Allergies: Coded Allergies: No Known Allergies (Unverified , 01/11/13) ROS Limited/Unobtainable: No Constitutional: Reports: no symptoms HEENT: Reports: no symptoms Cardiovascular: Reports: no symptoms Respiratory: Reports: no symptoms Gastrointestinal/Abdominal: Reports: abdominal pain Genitourinary: Reports: no symptoms Neurologic/Psychiatric: Reports: no symptoms Subjective 47 YO F admitted with abdominal pain. Now perforated gastric viscus. Cover for Int med-Dr Pelletier. S/P expl laparotomy 06/27/18. Objective Last Vital Signs Date Time Temp Pulse Resp B/P (MAP) Pulse Ox O2 Delivery O2 Flow Rate FiO2 07/01/18 12:00 97.8 111 18 141/85 (103) 97 07/01/18 09:00 Room Air Room Air 06/29/18 20:00 21 06/29/18 12:00 12.0 Laboratory Tests Test 07/01/18 06:02 White Blood Count 18.6 K/UL (4.8-10.8) H Red Blood Count 3.81 M/UL (4.20-5.40) L Hemoglobin 8.9 G/DL (12.0-16.0) L Hematocrit 29.0 % (37.0-47.0) L Mean Corpuscular Volume 76 FL (80-99) L Mean Corpuscular Hemoglobin 23.4 PG (27.0-31.0) L Mean Corpuscular Hemoglobin Concent 30.7 G/DL (32.0-36.0) L Red Cell Distribution Width 19.5 % (11.6-14.8) H Platelet Count 453 K/UL (150-450) H Mean Platelet Volume 5.5 FL (6.5-10.1) L Neutrophils (%) (Auto) % (45.0-75.0) Lymphocytes (%) (Auto) % (20.0-45.0) Monocytes (%) (Auto) % (1.0-10.0) Eosinophils (%) (Auto) % (0.0-3.0) Basophils (%) (Auto) % (0.0-2.0) Differential Total Cells Counted 100 Neutrophils % (Manual) 88 % (45-75) H Lymphocytes % (Manual) 3 % (20-45) L Monocytes % (Manual) 9 % (1-10) Eosinophils % (Manual) 0 % (0-3) Basophils % (Manual) 0 % (0-2) Band Neutrophils 0 % (0-8) Platelet Estimate Adequate Platelet Morphology Normal Hypochromasia 1+ Anisocytosis 2+ Microcytosis 1+ Sodium Level 144 MMOL/L (136-145) Potassium Level 2.4 MMOL/L (3.5-5.1) *L Chloride Level 104 MMOL/L (98-107) Carbon Dioxide Level 18 MMOL/L (21-32) L Anion Gap 22 mmol/L (5-15) H Blood Urea Nitrogen 5 mg/dL (7-18) L Creatinine 0.6 MG/DL (0.55-1.30) Estimat Glomerular Filtration Rate > 60 mL/min (>60) Glucose Level 36 MG/DL (74-106) *L Calcium Level 8.7 MG/DL (8.5-10.1) Intake and Output 06/30/18 07/01/18 19:00 07:00 Intake Total 55.0 ml Output Total 2000 ml 2950 ml Balance -1945.0 ml -2950 ml Intake IV Total 55.0 ml Output Urine Total 2000 ml 1475 ml Gastric Drainage Total 1250 ml Other 225 ml # Bowel Movements 3 Objective PHYSICAL EXAMINATION: VITAL SIGNS: On admission, temperature 98.8, pulse 116, respirations 24, and blood pressure 96/73. GENERAL: The patient is awake and responsive, in no acute distress at this time. HEAD AND NECK: Pupils are equal and reactive. Extraocular movements are intact. Neck was supple. No JVD. The patient has a NG tube to intermittent suction. LUNGS: Good air entry. No wheezes or rhonchi. Decreased air in bases. HEART: S1, S2. Tachycardic. No murmur or gallop. ABDOMEN: Soft. Generalized tenderness. Midline surgical incision from the recent abdominal surgery. EXTREMITIES: No cyanosis, clubbing, or edema. NEUROLOGIC: Cranial nerves II through XII grossly normal. Moves all four extremities. Gait is intact. Assessment/Plan Assessment/Plan ASSESSMENT: 1. Abdominal pain, secondary to perforated gastric ulcer. 2. Acute kidney injury/acute tubular necrosis. 3. Peritonitis. 4. History of gastric ulcer. 5. Acute anemia, most likely secondary to acute blood loss. 6. Severe dehydration. 7. History of chronic inflammatory demyelinating polyneuropathy. PLAN: 1. Med/surg. 2. S/P exploratory laparotomy, repair of gastric ulcer perforation and partial omemtectomy 06/27/[address] Grady recommendation from General Surgery Dr. Pat from Pul[facility]. 3. Broad spectrum antibiotics with Zosyn and Diflucan. 4. We will follow up with the pain medication. 5. Code status is Full Code. 6. Protonix IV twice a day. Tay Boothe MD Jul 01, 2018 17:47
[2018-07-01] MEDS ORDERED: LORazepam Inj 2mg/ml 1ml IV PRN (19:00)
--- NOTE | 2018-07-01 19:00 | NUR ---
NURSE NOTES: Patient in stable condition at this time. Encouraged to continue with IS use and perform activity as tolerated. Educated to call for staff assistance before getting OOB. Refused to have gown and bedding changed, asked RN and HORSE GROOMER to come back later. Will endorse to night filler.
--- NOTE | 2018-07-01 19:45 | NUR ---
HAND-OFF: Report given to Baldo MOREL. Patient is in stable condition.
--- NOTE | 2018-07-01 19:50 | NUR ---
NURSE NOTES: Received report from ADRIEL Cazares. Received pt lying in bed, AOX4, denies pain at this time, no distress noted. IV R and L FA #20 patent and intact. IV fluid infusing as ordered to L FA. NG tube to low intermittent suction greenish output. Pt is strict NPO. Pt is aware. Encouraged pt to use IS q 8 hours per MD order. Bed in lowest position and locked, side rails up x 2, call light within reach. Will continue to monitor.
[2018-07-02] VITALS: BP 152/82
[2018-07-02] MEDS: Morphine Sulfate 2mg/ml Inj(IV/IM USE ONLY) IVP PRN ×2 (03:38→08:27)
[2018-07-02 04:00] VITALS: BP 124/85
--- NOTE | 2018-07-02 04:30 | NUR ---
NURSE NOTES: Pt had diarrhea abdominal dressing with diarrhea, kept pt clean and dry, change abdominal dressing with 4x4, abdominal pad and silk tape.
[2018-07-02] MEDS: D5NS w/KCl 40mEq 1000ml 1,000 ML IV SCH ×2 (06:13→14:07)
[2018-07-02 07:19] LABS: BASOPHILS % (AUTO) 0.5 % (0.0-2.0); EOSINOPHILS % (AUTO) 2.6 % (0.0-3.0); HEMATOCRIT 25.7 % (37.0-47.0); HEMOGLOBIN 8.1 G/DL (12.0-16.0); LYMPHOCYTES % (AUTO) 12.7 % (20.0-45.0); MEAN CORPUSCULAR VOLUME 75 FL (80-99); MONOCYTES % (AUTO) 8.1 % (1.0-10.0); NEUTROPHILS % (AUTO) 76.1 % (45.0-75.0); PLATELET COUNT 473 K/UL (150-450); RED BLOOD COUNT 3.43 M/UL (4.20-5.40); RED CELL DISTRIBUTION WIDTH 19.5 % (11.6-14.8); WHITE BLOOD COUNT 14.8 K/UL (4.8-10.8)
--- NOTE | 2018-07-02 07:30 | NUR ---
HAND-OFF: Report given to ADRIEL Gibson. Pt in stable condition.
--- NOTE | 2018-07-02 07:35 | NUR ---
NURSE NOTES: Patient lying in bed awake. Complain of pain 8/10 on surgical site. Will administer pain medication as ordered. Skin intact and dry. Surgical dressing intact and dry. IV dressing intact and dry. On NG tube intermit low suction and patent. Bed lowest position. Call light within reach. Will continue to monitor.
[2018-07-02 08:00] VITALS: BP 141/87
[2018-07-02 08:13] LABS: ANION GAP 13 mmol/L (5-15); BLOOD UREA NITROGEN 3 mg/dL (7-18); CALCIUM 8.3 MG/DL (8.5-10.1); CARBON DIOXIDE 20 MMOL/L (21-32); CHLORIDE 112 MMOL/L (98-107); CREATININE 0.5 MG/DL (0.55-1.30); POTASSIUM 3.4 MMOL/L (3.5-5.1); SODIUM 145 MMOL/L (136-145)
[2018-07-02] MEDS: Pantoprazole Inj IVP SCH ×2 (08:26→17:49)
[2018-07-02] MEDS: Heparin 5000 units/ml inj SUBQ SCH ×2 (08:28→20:44)
--- NOTE | 2018-07-02 08:28 | NUR ---
CASE MANAGEMENT:REVIEW 07/02/18 SI: POD #4 S/P REPAIR OF GASTRIC PERFORATION AND PARTIAL OMENTECTOMY PERITONITIS 99.4 102 18 124/85 98% ON RA IS: IV ERTAPENEM Q24 IV DIFLUCAN Q24 IVF@125/HR HEPARIN SQ Q12 IV PROTONIX BID IV MORPHINE Q3HRS PRN : MED/SURG STATUS DCP: PATIENT IS FROM HOME PLAN: NPO IV ABX
[2018-07-02] MEDS ORDERED: Barium EZ HD MC PRN (11:15)
[2018-07-02] MEDS ORDERED: Varibar Thin Liquid powder 148gm MC PRN (11:15)
[2018-07-02] MEDS ORDERED: Barium EZ Gas II granules MC PRN (11:15)
--- NOTE | 2018-07-02 11:34 | NUR ---
RD ASSESSMENT & RECOMMENDATIONS SEE CARE ACTIVITY FOR COMPLETE ASSESSMENT DAILY ESTIMATED NEEDS: Needs based on surgery/ 55kg 25-30 kcals/kg 9208-1108 total kcals 1-2 g protein/kg 55-110 g total protein 25-30 mL/kg 9898-4304 total fluid mLs NUTRITION DIAGNOSIS: Altered GI function R/T gastric perforation as evidenced by s/p exploratory laparotomy, repair of gastric ulcer perforation and partial omentectomy, currently NPO w/ NGT to LIS. CURRENT DIET:NPO PO DIET RECOMMENDATIONS: Initiate diet per surgeon ADDITIONAL RECOMMENDATIONS: * Standing wt as able for accurate CBW * Monitor NPO status- day 5 today * Monitor for hypoglycemia * Monitor lytes, replete as needed
--- NOTE | 2018-07-02 11:39 | GI Progress Note ---
Assessment/Plan Problems: (1) Peritonitis ICD Codes: K65.9 - Peritonitis, unspecified SNOMED: 59839609 (2) Surgical pneumoperitoneum ICD Codes: K66.8 - Other specified disorders of peritoneum SNOMED: 27770944 (3) Bowel perforation ICD Codes: K63.1 - Perforation of intestine (nontraumatic) SNOMED: 11618245 (4) Perforated abdominal viscus SNOMED: 698199442 (5) GI bleed ICD Codes: K92.2 - Gastrointestinal hemorrhage, unspecified SNOMED: 07137492 (6) Gastric ulcer ICD Codes: K25.9 - Gastric ulcer, unspecified as acute or chronic, without hemorrhage or perforation SNOMED: 679766683 Status: unchanged Status Narrative Discussed with Dr. Cedeño. Assessment/Plan OPERATION PERFORMED: 1. Exploratory laparotomy. 2. Repair of gastric perforation with Román patch. 3. Partial omentectomy. surgical recs npo ivf pain control ppi fu H&H The patient was seen and examined at bedside and all new and available data was reviewed in the patients chart. I agree with the above findings, impression and plan. (Patient seen earlier today. Signature stamp does not reflect patient encounter time.). - Conrad Cedeño MD Subjective Subjective Limited Objective Last 24 Hour Vital Signs Date Time Temp Pulse Resp B/P (MAP) Pulse Ox O2 Delivery O2 Flow Rate FiO2 07/02/18 09:00 Room Air Room Air 07/02/18 08:00 98.9 107 18 141/87 (105) 95 07/02/18 04:00 99.3 102 18 124/85 (98) 98 07/02/18 00:00 98.9 106 17 152/82 (105) 97 07/01/18 21:00 Room Air Room Air 07/01/18 20:00 99.0 110 19 160/86 (110) 97 07/01/18 19:02 99.4 07/01/18 16:00 99.4 107 18 142/83 (102) 95 07/01/18 12:00 97.8 111 18 141/85 (103) 97 Intake and Output 07/01/18 07/02/18 19:00 07:00 Intake Total 55 ml 850 ml Output Total 1175 ml Balance -1120 ml 850 ml Intake IV Total 55 ml 850 ml Output Urine Total 1000 ml Gastric Drainage Total 175 ml # Voids 6 2 # Bowel Movements 1 1 Laboratory Tests Test 07/02/18 06:32 White Blood Count 14.8 K/UL (4.8-10.8) H Red Blood Count 3.43 M/UL (4.20-5.40) L Hemoglobin 8.1 G/DL (12.0-16.0) L Hematocrit 25.7 % (37.0-47.0) L Mean Corpuscular Volume 75 FL (80-99) L Mean Corpuscular Hemoglobin 23.7 PG (27.0-31.0) L Mean Corpuscular Hemoglobin Concent 31.7 G/DL (32.0-36.0) L Red Cell Distribution Width 19.5 % (11.6-14.8) H Platelet Count 473 K/UL (150-450) H Mean Platelet Volume 6.3 FL (6.5-10.1) L Neutrophils (%) (Auto) 76.1 % (45.0-75.0) H Lymphocytes (%) (Auto) 12.7 % (20.0-45.0) L Monocytes (%) (Auto) 8.1 % (1.0-10.0) Eosinophils (%) (Auto) 2.6 % (0.0-3.0) Basophils (%) (Auto) 0.5 % (0.0-2.0) Sodium Level 145 MMOL/L (136-145) Potassium Level 3.4 MMOL/L (3.5-5.1) L Chloride Level 112 MMOL/L (98-107) H Carbon Dioxide Level 20 MMOL/L (21-32) L Anion Gap 13 mmol/L (5-15) Blood Urea Nitrogen 3 mg/dL (7-18) L Creatinine 0.5 MG/DL (0.55-1.30) L Estimat Glomerular Filtration Rate > 60 mL/min (>60) Glucose Level 144 MG/DL (74-106) #H Calcium Level 8.3 MG/DL (8.5-10.1) L Height (Feet): 5 Height (Inches): 5.00 Weight (Pounds): 127 General Appearance: no apparent distress Cardiovascular: normal rate Respiratory/Chest: normal breath sounds, no respiratory distress Abdominal Exam: normal bowel sounds, non tender, soft Extremities: non-tender Adkins,Kavita-Hoang [employer] Jul 02, 2018 11:39
--- NOTE | 2018-07-02 11:44 | Pulmonology Progress Note ---
Assessment/Plan Problems: (1) Gastric ulcer (2) Perforated abdominal viscus (3) Bowel perforation (4) ATN (acute tubular necrosis) (5) Peritonitis Assessment/Plan getting better iv fluids npo iv abx check cultrues check electrolytes Subjective ROS Limited/Unobtainable: No Constitutional: Reports: no symptoms HEENT: Repors: no symptoms Respiratory: Reports: no symptoms Allergies: Coded Allergies: No Known Allergies (Unverified , 01/11/13) Objective Last 24 Hour Vital Signs Date Time Temp Pulse Resp B/P (MAP) Pulse Ox O2 Delivery O2 Flow Rate FiO2 07/02/18 09:00 Room Air Room Air 07/02/18 08:00 98.9 107 18 141/87 (105) 95 07/02/18 04:00 99.3 102 18 124/85 (98) 98 07/02/18 00:00 98.9 106 17 152/82 (105) 97 07/01/18 21:00 Room Air Room Air 07/01/18 20:00 99.0 110 19 160/86 (110) 97 07/01/18 19:02 99.4 07/01/18 16:00 99.4 107 18 142/83 (102) 95 07/01/18 12:00 97.8 111 18 141/85 (103) 97 Intake and Output 07/01/18 07/02/18 19:00 07:00 Intake Total 55 ml 850 ml Output Total 1175 ml Balance -1120 ml 850 ml Intake IV Total 55 ml 850 ml Output Urine Total 1000 ml Gastric Drainage Total 175 ml # Voids 6 2 # Bowel Movements 1 1 General Appearance: cachetic HEENT: normocephalic, atraumatic Respiratory/Chest: chest wall non-tender, lungs clear Breasts: no masses Cardiovascular: normal peripheral pulses, normal rate Abdomen: normal bowel sounds, soft, non tender Skin: no rash Laboratory Tests 07/02/18 06:32: White Blood Count 14.8H, Red Blood Count 3.43L, Hemoglobin 8.1L, Hematocrit 25.7L, Mean Corpuscular Volume 75L, Mean Corpuscular Hemoglobin 23.7L, Mean Corpuscular Hemoglobin Concent 31.7L, Red Cell Distribution Width 19.5H, Platelet Count 473H, Mean Platelet Volume 6.3L, Neutrophils (%) (Auto) 76.1H, Lymphocytes (%) (Auto) 12.7L, Monocytes (%) (Auto) 8.1, Eosinophils (%) (Auto) 2.6, Basophils (%) (Auto) 0.5, Sodium Level 145, Potassium Level 3.4L, Chloride Level 112H, Carbon Dioxide Level 20L, Anion Gap 13, Blood Urea Nitrogen 3L, Creatinine 0.5L, Estimat Glomerular Filtration Rate > 60, Glucose Level 144#H, Calcium Level 8.3L Current Medications Medications (Trade) Dose Ordered Sig/Marisol Route PRN Reason Start Time Stop Time Status Last Admin Dose Admin Barium Sulfate (Barium EZ Gas II) 1 ea NOW PRN Radiology Procedure 07/02/18 11:15 07/05/18 11:05 Barium Sulfate (Barium EZ HD) 1 ea NOW PRN Radiology Procedure 07/02/18 11:15 07/05/18 11:05 Barium Sulfate (Varibar Thin Liquid powder) 148 gm NOW PRN Radiology Procedure 07/02/18 11:15 07/05/18 11:05 Dextrose (Dextrose 50%) 25 ml Q30M PRN IV Hypoglycemia 06/29/18 15:00 07/27/18 19:29 Dextrose (Dextrose 50%) 50 ml Q30M PRN IV Hypoglycemia 06/29/18 15:00 07/27/18 19:29 07/01/18 09:04 Dextrose/ Electrolytes 1,000 ml @ 125 mls/hr Q8H IV 07/01/18 14:00 07/31/18 13:59 07/02/18 06:13 Ertapenem 1 gm/ Sodium Chloride 55 ml @ 110 mls/hr Q24H IVPB 07/01/18 17:00 07/06/18 16:59 07/01/18 17:29 Fluconazole/ Sodium Chloride 100 ml @ 100 mls/hr Q24H IV 06/30/18 01:30 07/05/18 01:29 07/02/18 01:46 Heparin Sodium (Porcine) (Heparin 5000 units/ml) 5,000 units EVERY 12 HOURS SUBQ 06/29/18 21:00 07/28/18 08:59 07/02/18 08:28 Lorazepam (Ativan 2mg/ml 1ml) 1 mg Q4H PRN IV Agitation 07/01/18 19:00 07/08/18 18:59 07/01/18 20:41 Morphine Sulfate (Morphine Sulfate) 2 mg Q3H PRN IVP FOR PAIN 06/29/18 15:00 07/05/18 14:59 07/02/18 08:27 Nitroglycerin (Ntg) 0.4 mg Q5M X 3 DOSES PRN SL Prn Chest Pain 06/29/18 14:45 07/27/18 19:29 Ondansetron HCl (Zofran) 4 mg Q6H PRN IVP Nausea & Vomiting 06/29/18 15:00 07/28/18 14:59 06/30/18 19:58 Pantoprazole (Protonix) 40 mg BID IVP 06/29/18 18:00 07/28/18 08:59 07/02/18 08:26 Phenol/Menthol (Chloraseptic) 1 spray Q3H PRN ORAL sore throat 06/30/18 00:30 07/30/18 00:29 07/01/18 16:31 Temazepam (Restoril) 15 mg HSPRN PRN ORAL Insomnia 06/29/18 19:30 07/04/18 19:29 Allie Cabrera MD Jul 02, 2018 11:43
[2018-07-02 12:00] VITALS: BP 126/85
--- NOTE | 2018-07-02 12:40 | NUR ---
NURSE NOTES: Patient off unit for procedure in stable condition. IV patent.
--- NOTE | 2018-07-02 14:00 | NUR ---
NURSE NOTES: Patient came back from procedure in stable condition. NG tube removed during procedure. No complain of pain or distress at this time. Will continue to monitor.
[2018-07-02] MEDS: Chloraseptic Spray 20mL Bottle ORAL PRN (14:07)
--- NOTE | 2018-07-02 14:38 | NUR ---
RADIOLOGY DEPT., UGI WITH GASTROGRAFIN STUDY COMPLETED.-P.DYE
--- NOTE | 2018-07-02 14:51 | NUR ---
*-* INSURANCE *-* UPDATED CLINICALS AND REVIEWS HAVE BEEN FAXED TO: [facility]IR[facility] ([facility] [place] P- [phone] F- [phone]....IF NEEDED F/S FAXED TO FARH[employer]JOSE CUI# [id number] NO DORMITORY SUPERVISOR ASSIGNED AT THIS TIME PLEASE FAX THE REVIEW/CLINICAL P- [phone] F- [phone]
[2018-07-02 16:00] VITALS: BP 129/77
--- NOTE | 2018-07-02 16:34 | Infectious Diseases Prog Note ---
Assessment/Plan Assessment/Plan Assessment: Gastric perforation Abd Cx: ESBL e.coli (S Zosyn, Ertapenem), C. glabrata, b. fragilis -06/28 SP exploratory laparotomy; repair of gastric perforation with kary patch ;partial omentectomy -06/27 CT abd/p: Positive for pneumoperitoneum. This is concerning for bowel perforation. Location of perforation uncertain, but suspect duodenal or gastric antral ulcer. Marked small bowel dilatation. Suspect this represents ileus related to the above, although the possibility of distal small bowel obstruction should also be considered. Free intraperitoneal fluid, likely related to the above. Distal esophageal wall thickening, raises concern for esophagitis. 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 glabrata. -07/01 SP ZOsyn #5 -f.u cx -Monitor CBC/CMP, temperatures -Sx f/u -wound care per hospital protocol and surgical team -aspiration precautions -f/u Upper GI contrast Discussed with RN. Subjective Allergies: Coded Allergies: No Known Allergies (Unverified , 01/11/13) Subjective afebrile >72hrs wbc improving Objective Vital Signs Last 24 Hour Vital Signs Date Time Temp Pulse Resp B/P (MAP) Pulse Ox O2 Delivery O2 Flow Rate FiO2 07/02/18 16:00 99.0 101 19 129/77 (94) 98 07/02/18 12:00 98.5 100 20 126/85 (99) 97 07/02/18 09:00 Room Air Room Air 07/02/18 08:00 98.9 107 18 141/87 (105) 95 07/02/18 04:00 99.3 102 18 124/85 (98) 98 07/02/18 00:00 98.9 106 17 152/82 (105) 97 07/01/18 21:00 Room Air Room Air 07/01/18 20:00 99.0 110 19 160/86 (110) 97 07/01/18 19:02 99.4 Height (Feet): 5 Height (Inches): 5.00 Weight (Pounds): 127 Objective General Appearance: WD/WN, no apparent distress, alert Cardiovascular: normal rate Respiratory/Chest: normal breath sounds, no respiratory distress Abdominal Exam: normal bowel sounds, non tender, soft Extremities: non-tender Laboratory Tests Test 07/02/18 06:32 White Blood Count 14.8 K/UL (4.8-10.8) H Red Blood Count 3.43 M/UL (4.20-5.40) L Hemoglobin 8.1 G/DL (12.0-16.0) L Hematocrit 25.7 % (37.0-47.0) L Mean Corpuscular Volume 75 FL (80-99) L Mean Corpuscular Hemoglobin 23.7 PG (27.0-31.0) L Mean Corpuscular Hemoglobin Concent 31.7 G/DL (32.0-36.0) L Red Cell Distribution Width 19.5 % (11.6-14.8) H Platelet Count 473 K/UL (150-450) H Mean Platelet Volume 6.3 FL (6.5-10.1) L Neutrophils (%) (Auto) 76.1 % (45.0-75.0) H Lymphocytes (%) (Auto) 12.7 % (20.0-45.0) L Monocytes (%) (Auto) 8.1 % (1.0-10.0) Eosinophils (%) (Auto) 2.6 % (0.0-3.0) Basophils (%) (Auto) 0.5 % (0.0-2.0) Sodium Level 145 MMOL/L (136-145) Potassium Level 3.4 MMOL/L (3.5-5.1) L Chloride Level 112 MMOL/L (98-107) H Carbon Dioxide Level 20 MMOL/L (21-32) L Anion Gap 13 mmol/L (5-15) Blood Urea Nitrogen 3 mg/dL (7-18) L Creatinine 0.5 MG/DL (0.55-1.30) L Estimat Glomerular Filtration Rate > 60 mL/min (>60) Glucose Level 144 MG/DL (74-106) #H Calcium Level 8.3 MG/DL (8.5-10.1) L Current Medications Medications (Trade) Dose Ordered Sig/Marisol Route PRN Reason Start Time Stop Time Status Last Admin Dose Admin Barium Sulfate (Barium EZ Gas II) 1 ea NOW PRN Radiology Procedure 07/02/18 11:15 07/05/18 11:05 Barium Sulfate (Barium EZ HD) 1 ea NOW PRN Radiology Procedure 07/02/18 11:15 07/05/18 11:05 Barium Sulfate (Varibar Thin Liquid powder) 148 gm NOW PRN Radiology Procedure 07/02/18 11:15 07/05/18 11:05 Dextrose (Dextrose 50%) 25 ml Q30M PRN IV Hypoglycemia 06/29/18 15:00 07/27/18 19:29 Dextrose (Dextrose 50%) 50 ml Q30M PRN IV Hypoglycemia 06/29/18 15:00 07/27/18 19:29 07/01/18 09:04 Dextrose/ Electrolytes 1,000 ml @ 125 mls/hr Q8H IV 07/01/18 14:00 07/31/18 13:59 07/02/18 14:07 Ertapenem 1 gm/ Sodium Chloride 55 ml @ 110 mls/hr Q24H IVPB 07/01/18 17:00 07/06/18 16:59 07/01/18 17:29 Fluconazole/ Sodium Chloride 100 ml @ 100 mls/hr Q24H IV 06/30/18 01:30 07/05/18 01:29 07/02/18 01:46 Heparin Sodium (Porcine) (Heparin 5000 units/ml) 5,000 units EVERY 12 HOURS SUBQ 06/29/18 21:00 07/28/18 08:59 07/02/18 08:28 Lorazepam (Ativan 2mg/ml 1ml) 1 mg Q4H PRN IV Agitation 07/01/18 19:00 07/08/18 18:59 07/01/18 20:41 Morphine Sulfate (Morphine Sulfate) 2 mg Q3H PRN IVP FOR PAIN 06/29/18 15:00 07/05/18 14:59 07/02/18 08:27 Nitroglycerin (Ntg) 0.4 mg Q5M X 3 DOSES PRN SL Prn Chest Pain 06/29/18 14:45 07/27/18 19:29 Ondansetron HCl (Zofran) 4 mg Q6H PRN IVP Nausea & Vomiting 06/29/18 15:00 4/21/19 14:59 06/30/18 19:58 Pantoprazole (Protonix) 40 mg BID IVP 06/29/18 18:00 07/28/18 08:59 07/02/18 08:26 Phenol/Menthol (Chloraseptic) 1 spray Q3H PRN ORAL sore throat 06/30/18 00:30 07/30/18 00:29 07/02/18 14:07 Temazepam (Restoril) 15 mg HSPRN PRN ORAL Insomnia 06/29/18 19:30 07/04/18 19:29 Elvia Yi M.D. Jul 02, 2018 16:34
[2018-07-02] MEDS: Ertapenem 1 GM in NS 55 ML IVPB SCH (17:50)
[2018-07-02] MEDS: Micafungin 100 MG in NS 110 ML IVPB SCH (17:53)
--- NOTE | 2018-07-02 18:48 | Internal Med Progress Note ---
Subjective Date of Service: Jul 02, 2018 Physician Name Tay Boothe Attending Physician Oseas Pelletier MD Current Medications Medications (Trade) Dose Ordered Sig/Marisol Route PRN Reason Start Time Stop Time Status Last Admin Dose Admin Barium Sulfate (Barium EZ Gas II) 1 ea NOW PRN Radiology Procedure 07/02/18 11:15 07/05/18 11:05 Barium Sulfate (Barium EZ HD) 1 ea NOW PRN Radiology Procedure 07/02/18 11:15 07/05/18 11:05 Barium Sulfate (Varibar Thin Liquid powder) 148 gm NOW PRN Radiology Procedure 07/02/18 11:15 07/05/18 11:05 Dextrose (Dextrose 50%) 25 ml Q30M PRN IV Hypoglycemia 06/29/18 15:00 07/27/18 19:29 Dextrose (Dextrose 50%) 50 ml Q30M PRN IV Hypoglycemia 06/29/18 15:00 07/27/18 19:29 07/01/18 09:04 Dextrose/ Electrolytes 1,000 ml @ 125 mls/hr Q8H IV 07/01/18 14:00 07/31/18 13:59 07/02/18 14:07 Ertapenem 1 gm/ Sodium Chloride 55 ml @ 110 mls/hr Q24H IVPB 07/01/18 17:00 07/06/18 16:59 07/02/18 17:50 Heparin Sodium (Porcine) (Heparin 5000 units/ml) 5,000 units EVERY 12 HOURS SUBQ 06/29/18 21:00 07/28/18 08:59 07/02/18 08:28 Lorazepam (Ativan 2mg/ml 1ml) 1 mg Q4H PRN IV Agitation 07/01/18 19:00 07/08/18 18:59 07/01/18 20:41 Micafungin Sodium 100 mg/Sodium Chloride 110 ml @ 110 mls/hr Q24H IVPB 07/02/18 18:00 07/09/18 17:59 07/02/18 17:53 Morphine Sulfate (Morphine Sulfate) 2 mg Q3H PRN IVP FOR PAIN 06/29/18 15:00 07/05/18 14:59 07/02/18 08:27 Nitroglycerin (Ntg) 0.4 mg Q5M X 3 DOSES PRN SL Prn Chest Pain 06/29/18 14:45 07/27/18 19:29 Ondansetron HCl (Zofran) 4 mg Q6H PRN IVP Nausea & Vomiting 06/29/18 15:00 07/28/18 14:59 06/30/18 19:58 Pantoprazole (Protonix) 40 mg BID IVP 06/29/18 18:00 07/28/18 08:59 07/02/18 17:49 Phenol/Menthol (Chloraseptic) 1 spray Q3H PRN ORAL sore throat 06/30/18 00:30 07/30/18 00:29 07/02/18 14:07 Temazepam (Restoril) 15 mg HSPRN PRN ORAL Insomnia 06/29/18 19:30 07/04/18 19:29 Allergies: Coded Allergies: No Known Allergies (Unverified , 01/11/13) ROS Limited/Unobtainable: No Constitutional: Reports: no symptoms HEENT: Reports: no symptoms Cardiovascular: Reports: no symptoms Respiratory: Reports: no symptoms Gastrointestinal/Abdominal: Reports: no symptoms Genitourinary: Reports: no symptoms Neurologic/Psychiatric: Reports: no symptoms Subjective 47 YO F admitted with abdominal pain. Now perforated gastric viscus. Cover for Int romero-Dr Pelletier. S/P expl laparotomy 06/27/18. Objective Last Vital Signs Date Time Temp Pulse Resp B/P (MAP) Pulse Ox O2 Delivery O2 Flow Rate FiO2 07/02/18 16:00 99.0 101 19 129/77 (94) 98 07/02/18 09:00 Room Air Room Air 06/29/18 20:00 21 06/29/18 12:00 12.0 Laboratory Tests Test 07/02/18 06:32 White Blood Count 14.8 K/UL (4.8-10.8) H Red Blood Count 3.43 M/UL (4.20-5.40) L Hemoglobin 8.1 G/DL (12.0-16.0) L Hematocrit 25.7 % (37.0-47.0) L Mean Corpuscular Volume 75 FL (80-99) L Mean Corpuscular Hemoglobin 23.7 PG (27.0-31.0) L Mean Corpuscular Hemoglobin Concent 31.7 G/DL (32.0-36.0) L Red Cell Distribution Width 19.5 % (11.6-14.8) H Platelet Count 473 K/UL (150-450) H Mean Platelet Volume 6.3 FL (6.5-10.1) L Neutrophils (%) (Auto) 76.1 % (45.0-75.0) H Lymphocytes (%) (Auto) 12.7 % (20.0-45.0) L Monocytes (%) (Auto) 8.1 % (1.0-10.0) Eosinophils (%) (Auto) 2.6 % (0.0-3.0) Basophils (%) (Auto) 0.5 % (0.0-2.0) Sodium Level 145 MMOL/L (136-145) Potassium Level 3.4 MMOL/L (3.5-5.1) L Chloride Level 112 MMOL/L (98-107) H Carbon Dioxide Level 20 MMOL/L (21-32) L Anion Gap 13 mmol/L (5-15) Blood Urea Nitrogen 3 mg/dL (7-18) L Creatinine 0.5 MG/DL (0.55-1.30) L Estimat Glomerular Filtration Rate > 60 mL/min (>60) Glucose Level 144 MG/DL (74-106) #H Calcium Level 8.3 MG/DL (8.5-10.1) L Intake and Output 07/01/18 07/02/18 19:00 07:00 Intake Total 55 ml 850 ml Output Total 1175 ml Balance -1120 ml 850 ml Intake IV Total 55 ml 850 ml Output Urine Total 1000 ml Gastric Drainage Total 175 ml # Voids 6 2 # Bowel Movements 1 1 Objective PHYSICAL EXAMINATION: VITAL SIGNS: On admission, temperature 98.8, pulse 116, respirations 24, and blood pressure 96/73. GENERAL: The patient is awake and responsive, in no acute distress at this time. HEAD AND NECK: Pupils are equal and reactive. Extraocular movements are intact. Neck was supple. No JVD. The patient has a NG tube to intermittent suction. LUNGS: Good air entry. No wheezes or rhonchi. Decreased air in bases. HEART: S1, S2. Tachycardic. No murmur or gallop. ABDOMEN: Soft. Generalized tenderness. Midline surgical incision from the recent abdominal surgery. EXTREMITIES: No cyanosis, clubbing, or edema. NEUROLOGIC: Cranial nerves II through XII grossly normal. Moves all four extremities. Gait is intact. Assessment/Plan Assessment/Plan ASSESSMENT: 1. Abdominal pain, secondary to perforated gastric ulcer. 2. Acute kidney injury/acute tubular necrosis. 3. Peritonitis. 4. History of gastric ulcer. 5. Acute anemia, most likely secondary to acute blood loss. 6. Severe dehydration. 7. History of chronic inflammatory demyelinating polyneuropathy. PLAN: 1. Med/surg. 2. S/P exploratory laparotomy, repair of gastric ulcer perforation and partial omemtectomy 06/27/[address] Grady recommendation from General Surgery Dr. Pat from Pulmonary Critical Care. 3. Broad spectrum antibiotics with Zosyn and Diflucan. 4. We will follow up with the pain medication. 5. Code status is Full Code. 6. Protonix IV twice a day. 7. D/C NG tube; advance diet to clear Tay Rosenbaum MD Jul 02, 2018 18:48
[2018-07-02] MEDS ORDERED: Tubing IV Secondary IV ONE (18:58)
[2018-07-02] MEDS ORDERED: LR 1000ml ONE (18:58)
[2018-07-02] MEDS ORDERED: D5 1/2NS 1000ml IV ONE (18:58)
--- NOTE | 2018-07-02 19:17 | Diagnostic Imaging Report ---
Indication: Postop stomach surgery. Check for obstruction or leakage Comparison: None Findings: Crew Chief film shows a nasogastric tube within the stomach and vertically oriented skin denny over the abdomen. Water-soluble contrast was instilled into the stomach via the nasogastric tube and observed fluoroscopically in multiple projections. Contrast was seen extending into the pylorus, duodenum and proximal jejunum. There is no stomach or bowel dilatation. There is no obstruction. There is no evidence of extraluminal contrast to suggest contrast extravasation or leak. IMPRESSION: No evidence of obstruction or leak with contrast demonstrated within the stomach, duodenum and proximal jejunum.
--- NOTE | 2018-07-02 19:30 | NUR ---
HAND-OFF: Report given to Cruz MOREL. Patient in stable condition.
--- NOTE | 2018-07-02 19:40 | NUR ---
NURSE NOTES: Report taken from ADRIEL Gibson. patient is awake and in bed, A&Ox4. No signs of distress on room air. NG tube removed today per order. Lt. IV site not patent, removed. Rt IV 20g c/d/i and patent, running antibiotics per order. Surgical incision c/d/i, open to air per MD order. Suction available at bedside. patient instructed to continue to use IS. Bed in lowest position, call light within reach.
[2018-07-02 20:00] VITALS: BP 141/77
[2018-07-03] VITALS: BP 121/74
[2018-07-03] MEDS: D5NS w/KCl 40mEq 1000ml 1,000 ML IV SCH ×4 (00:01→23:20)
--- NOTE | 2018-07-03 00:33 | NUR ---
NURSE NOTES: Patient has been having loose stool. Not on stool softeners. Will collect sample for lab.
[2018-07-03 04:00] VITALS: BP 139/88
[2018-07-03] MEDS: Morphine Sulfate 2mg/ml Inj(IV/IM USE ONLY) IVP PRN ×5 (04:03→23:21)
[2018-07-03 07:19] LABS: BASOPHILS % (AUTO) 1.1 % (0.0-2.0); EOSINOPHILS % (AUTO) 3.1 % (0.0-3.0); HEMATOCRIT 26.3 % (37.0-47.0); HEMOGLOBIN 8.1 G/DL (12.0-16.0); LYMPHOCYTES % (AUTO) 16.5 % (20.0-45.0); MEAN CORPUSCULAR VOLUME 76 FL (80-99); MONOCYTES % (AUTO) 5.7 % (1.0-10.0); NEUTROPHILS % (AUTO) 73.7 % (45.0-75.0); PLATELET COUNT 555 K/UL (150-450); RED BLOOD COUNT 3.47 M/UL (4.20-5.40); RED CELL DISTRIBUTION WIDTH 19.6 % (11.6-14.8); WHITE BLOOD COUNT 14.4 K/UL (4.8-10.8)
--- NOTE | 2018-07-03 07:30 | NUR ---
NURSE NOTES: Patient is in bed awake and able to verbalize needs. Patient is stable and denies pain or difficulty breathing at this time. Patient is in good spirits. Patient encouraged to use call light for assistance. Patient verbalized understanding. Patient is comfortable in bed with call light within reach. Will continue to monitor.
--- NOTE | 2018-07-03 07:32 | NUR ---
HAND-OFF: Report given to ADRIEL Thomson. Patient awake and stable. .
[2018-07-03 07:43] LABS: ANION GAP 13 mmol/L (5-15); BLOOD UREA NITROGEN 1 mg/dL (7-18); CALCIUM 8.3 MG/DL (8.5-10.1); CARBON DIOXIDE 21 MMOL/L (21-32); CHLORIDE 114 MMOL/L (98-107); CREATININE 0.5 MG/DL (0.55-1.30); POTASSIUM 3.7 MMOL/L (3.5-5.1); SODIUM 148 MMOL/L (136-145)
[2018-07-03 08:00] VITALS: BP 130/80
[2018-07-03] MEDS: Pantoprazole Inj IVP SCH ×2 (08:57→18:22)
[2018-07-03] MEDS: Heparin 5000 units/ml inj SUBQ SCH ×2 (08:58→20:40)
--- NOTE | 2018-07-03 09:30 | NUR ---
CASE MANAGEMENT:REVIEW 07/03/18 SI: POD #5 S/P REPAIR OF GASTRIC PERFORATION AND PARTIAL OMENTECTOMY PERITONITIS 98.5 105 18 139/88 100% ON RA WBC+14.4 H/H-8.1/.3 IS: IV MICAFUNGIN Q24 IV ERTAPENEM Q24 IVF@125/HR HEPARIN SQ Q12 IV PROTONIX BID IV MORPHINE Q3HRS PRN : MED/SURG STATUS DCP: PATIENT IS FROM HOME PLAN: CLEARS IV ABX...DC DIFLUCAN...START MICAFUNGIN
--- NOTE | 2018-07-03 11:25 | GI Progress Note ---
Assessment/Plan Problems: (1) Peritonitis ICD Codes: K65.9 - Peritonitis, unspecified SNOMED: 83378146 (2) Surgical pneumoperitoneum ICD Codes: K66.8 - Other specified disorders of peritoneum SNOMED: 04127713 (3) Bowel perforation ICD Codes: K63.1 - Perforation of intestine (nontraumatic) SNOMED: 95964929 (4) Perforated abdominal viscus SNOMED: 049392676 (5) GI bleed ICD Codes: K92.2 - Gastrointestinal hemorrhage, unspecified SNOMED: 02468887 (6) Gastric ulcer ICD Codes: K25.9 - Gastric ulcer, unspecified as acute or chronic, without hemorrhage or perforation SNOMED: 267535897 Status: progressing Status Narrative Discussed with Dr. Cedeño Assessment/Plan OPERATION PERFORMED: 1. Exploratory laparotomy. 2. Repair of gastric perforation with Román patch. 3. Partial omentectomy. Pending upper GI series today surgical recs CLD, adv per surgery ivf pain control ppi fu H&H, prn transfusions am labs The patient was seen and examined at bedside and all new and available data was reviewed in the patients chart. I agree with the above findings, impression and plan. (Patient seen earlier today. Signature stamp does not reflect patient encounter time.). - Conrad Cedeño MD Subjective Subjective Abdominal pain improved Objective Last 24 Hour Vital Signs Date Time Temp Pulse Resp B/P (MAP) Pulse Ox O2 Delivery O2 Flow Rate FiO2 07/03/18 09:00 Room Air Room Air 07/03/18 08:00 97.7 96 17 130/80 (97) 99 07/03/18 04:00 98.5 105 18 139/88 (105) 100 07/03/18 00:00 98.0 96 19 121/74 (90) 98 07/02/18 21:00 Room Air Room Air 07/02/18 20:00 97.9 99 19 141/77 (98) 98 07/02/18 16:00 99.0 101 19 129/77 (94) 98 07/02/18 12:00 98.5 100 20 126/85 (99) 97 Intake and Output 07/02/18 07/03/18 19:00 07:00 Intake Total 240 ml Balance 240 ml Intake Oral 240 ml # Voids 3 5 # Bowel Movements 5 Laboratory Tests Test 07/03/18 06:16 White Blood Count 14.4 K/UL (4.8-10.8) H Red Blood Count 3.47 M/UL (4.20-5.40) L Hemoglobin 8.1 G/DL (12.0-16.0) L Hematocrit 26.3 % (37.0-47.0) L Mean Corpuscular Volume 76 FL (80-99) L Mean Corpuscular Hemoglobin 23.5 PG (27.0-31.0) L Mean Corpuscular Hemoglobin Concent 30.9 G/DL (32.0-36.0) L Red Cell Distribution Width 19.6 % (11.6-14.8) H Platelet Count 555 K/UL (150-450) H Mean Platelet Volume 6.5 FL (6.5-10.1) Neutrophils (%) (Auto) 73.7 % (45.0-75.0) Lymphocytes (%) (Auto) 16.5 % (20.0-45.0) L Monocytes (%) (Auto) 5.7 % (1.0-10.0) Eosinophils (%) (Auto) 3.1 % (0.0-3.0) H Basophils (%) (Auto) 1.1 % (0.0-2.0) Sodium Level 148 MMOL/L (136-145) H Potassium Level 3.7 MMOL/L (3.5-5.1) Chloride Level 114 MMOL/L (98-107) H Carbon Dioxide Level 21 MMOL/L (21-32) Anion Gap 13 mmol/L (5-15) Blood Urea Nitrogen 1 mg/dL (7-18) L Creatinine 0.5 MG/DL (0.55-1.30) L Estimat Glomerular Filtration Rate > 60 mL/min (>60) Glucose Level 117 MG/DL (74-106) H Calcium Level 8.3 MG/DL (8.5-10.1) L Height (Feet): 5 Height (Inches): 5.00 Weight (Pounds): 127 General Appearance: WD/WN, no apparent distress, alert Cardiovascular: normal rate Respiratory/Chest: normal breath sounds, no respiratory distress Abdominal Exam: normal bowel sounds, non tender, soft Extremities: normal range of motion, non-tender Tamara Adkins STORAGE CONSULTANT Jul 03, 2018 11:25
--- NOTE | 2018-07-03 11:57 | NUR ---
*-* INSURANCE *-* UPDATED CLINICALS AND REVIEWS HAVE BEEN FAXED TO: BEAU GIRON ([facility] [place]) P- [phone] F- [phone]....IF NEEDED F/S FAXED TO [employer]# [id number] NO AGRICULTURAL ECONOMICS PROFESSOR ASSIGNED AT THIS TIME PLEASE FAX THE REVIEW/CLINICAL P- [phone] F- [phone]
[2018-07-03 11:58] VITALS: BP 132/82
--- NOTE | 2018-07-03 12:35 | Internal Med Progress Note ---
Subjective Date of Service: Jul 03, 2018 Physician Name Tay Boothe Attending Physician Oseas Pelletier MD Current Medications Medications (Trade) Dose Ordered Sig/Marisol Route PRN Reason Start Time Stop Time Status Last Admin Dose Admin Barium Sulfate (Barium EZ Gas II) 1 ea NOW PRN Radiology Procedure 07/02/18 11:15 07/05/18 11:05 Barium Sulfate (Barium EZ HD) 1 ea NOW PRN Radiology Procedure 07/02/18 11:15 07/05/18 11:05 Barium Sulfate (Varibar Thin Liquid powder) 148 gm NOW PRN Radiology Procedure 07/02/18 11:15 07/05/18 11:05 Dextrose (Dextrose 50%) 25 ml Q30M PRN IV Hypoglycemia 06/29/18 15:00 07/27/18 19:29 Dextrose (Dextrose 50%) 50 ml Q30M PRN IV Hypoglycemia 06/29/18 15:00 07/27/18 19:29 07/01/18 09:04 Dextrose/ Electrolytes 1,000 ml @ 125 mls/hr Q8H IV 07/01/18 14:00 07/31/18 13:59 07/03/18 08:57 Ertapenem 1 gm/ Sodium Chloride 55 ml @ 110 mls/hr Q24H IVPB 07/01/18 17:00 07/06/18 16:59 07/02/18 17:50 Heparin Sodium (Porcine) (Heparin 5000 units/ml) 5,000 units EVERY 12 HOURS SUBQ 06/29/18 21:00 07/28/18 08:59 07/03/18 08:58 Lorazepam (Ativan 2mg/ml 1ml) 1 mg Q4H PRN IV Agitation 07/01/18 19:00 07/08/18 18:59 07/01/18 20:41 Micafungin Sodium 100 mg/Sodium Chloride 110 ml @ 110 mls/hr Q24H IVPB 07/02/18 18:00 07/09/18 17:59 07/02/18 17:53 Morphine Sulfate (Morphine Sulfate) 2 mg Q3H PRN IVP FOR PAIN 06/29/18 15:00 07/05/18 14:59 07/03/18 09:37 Nitroglycerin (Ntg) 0.4 mg Q5M X 3 DOSES PRN SL Prn Chest Pain 06/29/18 14:45 07/27/18 19:29 Ondansetron HCl (Zofran) 4 mg Q6H PRN IVP Nausea & Vomiting 06/29/18 15:00 07/28/18 14:59 06/30/18 19:58 Pantoprazole (Protonix) 40 mg BID IVP 06/29/18 18:00 07/28/18 08:59 07/03/18 08:57 Phenol/Menthol (Chloraseptic) 1 spray Q3H PRN ORAL sore throat 06/30/18 00:30 07/30/18 00:29 07/02/18 14:07 Temazepam (Restoril) 15 mg HSPRN PRN ORAL Insomnia 06/29/18 19:30 07/04/18 19:29 Allergies: Coded Allergies: No Known Allergies (Unverified , 01/11/13) ROS Limited/Unobtainable: No Constitutional: Reports: no symptoms HEENT: Reports: no symptoms Cardiovascular: Reports: no symptoms Respiratory: Reports: no symptoms Gastrointestinal/Abdominal: Reports: abdominal pain Genitourinary: Reports: no symptoms Neurologic/Psychiatric: Reports: no symptoms Subjective 47 YO F admitted with abdominal pain. Now perforated gastric viscus. Cover for Int romero-Dr Pelletier. S/P expl laparotomy 06/27/18. Objective Last Vital Signs Date Time Temp Pulse Resp B/P (MAP) Pulse Ox O2 Delivery O2 Flow Rate FiO2 07/03/18 11:58 98.6 96 18 132/82 (99) 98 07/03/18 09:00 Room Air Room Air 06/29/18 20:00 21 06/29/18 12:00 12.0 Laboratory Tests Test 07/03/18 06:16 White Blood Count 14.4 K/UL (4.8-10.8) H Red Blood Count 3.47 M/UL (4.20-5.40) L Hemoglobin 8.1 G/DL (12.0-16.0) L Hematocrit 26.3 % (37.0-47.0) L Mean Corpuscular Volume 76 FL (80-99) L Mean Corpuscular Hemoglobin 23.5 PG (27.0-31.0) L Mean Corpuscular Hemoglobin Concent 30.9 G/DL (32.0-36.0) L Red Cell Distribution Width 19.6 % (11.6-14.8) H Platelet Count 555 K/UL (150-450) H Mean Platelet Volume 6.5 FL (6.5-10.1) Neutrophils (%) (Auto) 73.7 % (45.0-75.0) Lymphocytes (%) (Auto) 16.5 % (20.0-45.0) L Monocytes (%) (Auto) 5.7 % (1.0-10.0) Eosinophils (%) (Auto) 3.1 % (0.0-3.0) H Basophils (%) (Auto) 1.1 % (0.0-2.0) Sodium Level 148 MMOL/L (136-145) H Potassium Level 3.7 MMOL/L (3.5-5.1) Chloride Level 114 MMOL/L (98-107) H Carbon Dioxide Level 21 MMOL/L (21-32) Anion Gap 13 mmol/L (5-15) Blood Urea Nitrogen 1 mg/dL (7-18) L Creatinine 0.5 MG/DL (0.55-1.30) L Estimat Glomerular Filtration Rate > 60 mL/min (>60) Glucose Level 117 MG/DL (74-106) H Calcium Level 8.3 MG/DL (8.5-10.1) L Intake and Output 07/02/18 07/03/18 19:00 07:00 Intake Total 240 ml Balance 240 ml Intake Oral 240 ml # Voids 3 5 # Bowel Movements 5 Objective PHYSICAL EXAMINATION: VITAL SIGNS: On admission, temperature 98.8, pulse 116, respirations 24, and blood pressure 96/73. GENERAL: The patient is awake and responsive, in no acute distress at this time. HEAD AND NECK: Pupils are equal and reactive. Extraocular movements are intact. Neck was supple. No JVD. The patient has a NG tube to intermittent suction. LUNGS: Good air entry. No wheezes or rhonchi. Decreased air in bases. HEART: S1, S2. Tachycardic. No murmur or gallop. ABDOMEN: Soft. Generalized tenderness. Midline surgical incision from the recent abdominal surgery. EXTREMITIES: No cyanosis, clubbing, or edema. NEUROLOGIC: Cranial nerves II through XII grossly normal. Moves all four extremities. Gait is intact. Assessment/Plan Assessment/Plan ASSESSMENT: 1. Abdominal pain, secondary to perforated gastric ulcer. 2. Acute kidney injury/acute tubular necrosis. 3. Peritonitis. 4. History of gastric ulcer. 5. Acute anemia, most likely secondary to acute blood loss. 6. Severe dehydration. 7. History of chronic inflammatory demyelinating polyneuropathy. PLAN: 1. Med/surg. 2. S/P exploratory laparotomy, repair of gastric ulcer perforation and partial omemtectomy 06/27/[address] Grady recommendation from General Surgery Dr. Pat from Pulmonary Critical [facility]. 3. Broad spectrum antibiotics with Zosyn and Diflucan. 4. We will follow up with the pain medication. 5. Code status is Full Code. 6. Protonix IV twice a day. 7. tolerating clear liq diet Tay Boothe MD Jul 03, 2018 12:35
--- NOTE | 2018-07-03 13:28 | Pulmonology Progress Note ---
Assessment/Plan Problems: (1) Gastric ulcer (2) Perforated abdominal viscus (3) Bowel perforation (4) ATN (acute tubular necrosis) (5) Peritonitis Assessment/Plan getting better iv fluids advance diet iv abx check cultrues check electrolytes Subjective ROS Limited/Unobtainable: No Constitutional: Reports: no symptoms HEENT: Repors: no symptoms Allergies: Coded Allergies: No Known Allergies (Unverified , 01/11/13) Objective Last 24 Hour Vital Signs Date Time Temp Pulse Resp B/P (MAP) Pulse Ox O2 Delivery O2 Flow Rate FiO2 07/03/18 11:58 98.6 96 18 132/82 (99) 98 07/03/18 09:00 Room Air Room Air 07/03/18 08:00 97.7 96 17 130/80 (97) 99 07/03/18 04:00 98.5 105 18 139/88 (105) 100 07/03/18 00:00 98.0 96 19 121/74 (90) 98 07/02/18 21:00 Room Air Room Air 07/02/18 20:00 97.9 99 19 141/77 (98) 98 07/02/18 16:00 99.0 101 19 129/77 (94) 98 Intake and Output 07/02/18 07/03/18 19:00 07:00 Intake Total 240 ml Balance 240 ml Intake Oral 240 ml # Voids 3 5 # Bowel Movements 5 General Appearance: WD/WN HEENT: normocephalic Respiratory/Chest: chest wall non-tender, lungs clear Breasts: no masses Cardiovascular: normal peripheral pulses Abdomen: normal bowel sounds, soft, non tender Genitourinary: normal external genitalia Extremities: no cyanosis 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 Laboratory Tests 07/03/18 06:16: White Blood Count 14.4H, Red Blood Count 3.47L, Hemoglobin 8.1L, Hematocrit 26.3L, Mean Corpuscular Volume 76L, Mean Corpuscular Hemoglobin 23.5L, Mean Corpuscular Hemoglobin Concent 30.9L, Red Cell Distribution Width 19.6H, Platelet Count 555H, Mean Platelet Volume 6.5, Neutrophils (%) (Auto) 73.7, Lymphocytes (%) (Auto) 16.5L, Monocytes (%) (Auto) 5.7, Eosinophils (%) (Auto) 3.1H, Basophils (%) (Auto) 1.1, Sodium Level 148H, Potassium Level 3.7, Chloride Level 114H, Carbon Dioxide Level 21, Anion Gap 13, Blood Urea Nitrogen 1L, Creatinine 0.5L, Estimat Glomerular Filtration Rate > 60, Glucose Level 117H , Calcium Level 8.3L Current Medications Medications (Trade) Dose Ordered Sig/Marisol Route PRN Reason Start Time Stop Time Status Last Admin Dose Admin Barium Sulfate (Barium EZ Gas II) 1 ea NOW PRN Radiology Procedure 07/02/18 11:15 07/05/18 11:05 Barium Sulfate (Barium EZ HD) 1 ea NOW PRN Radiology Procedure 07/02/18 11:15 07/05/18 11:05 Barium Sulfate (Varibar Thin Liquid powder) 148 gm NOW PRN Radiology Procedure 07/02/18 11:15 07/05/18 11:05 Dextrose (Dextrose 50%) 25 ml Q30M PRN IV Hypoglycemia 06/29/18 15:00 07/27/18 19:29 Dextrose (Dextrose 50%) 50 ml Q30M PRN IV Hypoglycemia 06/29/18 15:00 07/27/18 19:29 07/01/18 09:04 Dextrose/ Electrolytes 1,000 ml @ 125 mls/hr Q8H IV 07/01/18 14:00 07/31/18 13:59 07/03/18 08:57 Ertapenem 1 gm/ Sodium Chloride 55 ml @ 110 mls/hr Q24H IVPB 07/01/18 17:00 07/06/18 16:59 07/02/18 17:50 Heparin Sodium (Porcine) (Heparin 5000 units/ml) 5,000 units EVERY 12 HOURS SUBQ 06/29/18 21:00 07/28/18 08:59 07/03/18 08:58 Lorazepam (Ativan 2mg/ml 1ml) 1 mg Q4H PRN IV Agitation 07/01/18 19:00 07/08/18 18:59 07/01/18 20:41 Micafungin Sodium 100 mg/Sodium Chloride 110 ml @ 110 mls/hr Q24H IVPB 07/02/18 18:00 07/09/18 17:59 07/02/18 17:53 Morphine Sulfate (Morphine Sulfate) 2 mg Q3H PRN IVP FOR PAIN 06/29/18 15:00 07/05/18 14:59 07/03/18 09:37 Nitroglycerin (Ntg) 0.4 mg Q5M X 3 DOSES PRN SL Prn Chest Pain 06/29/18 14:45 07/27/18 19:29 Ondansetron HCl (Zofran) 4 mg Q6H PRN IVP Nausea & Vomiting 06/29/18 15:00 07/28/18 14:59 06/30/18 19:58 Pantoprazole (Protonix) 40 mg BID IVP 06/29/18 18:00 07/28/18 08:59 07/03/18 08:57 Phenol/Menthol (Chloraseptic) 1 spray Q3H PRN ORAL sore throat 06/30/18 00:30 07/30/18 00:29 07/02/18 14:07 Temazepam (Restoril) 15 mg HSPRN PRN ORAL Insomnia 06/29/18 19:30 07/04/18 19:29 Allie Cabrera MD Jul 03, 2018 13:28
--- NOTE | 2018-07-03 15:07 | Infectious Diseases Prog Note ---
Assessment/Plan Assessment/Plan Assessment: Gastric perforation Abd Cx: ESBL e.coli (S Zosyn, Ertapenem), C. glabrata, b. fragilis, lactobacillus sp -06/28 SP exploratory laparotomy; repair of gastric perforation with kary patch ;partial omentectomy -06/27 CT abd/p: Positive for pneumoperitoneum. This is concerning for bowel perforation. Location of perforation uncertain, but suspect duodenal or gastric antral ulcer. Marked small bowel dilatation. Suspect this represents ileus related to the above, although the possibility of distal small bowel obstruction should also be considered. Free intraperitoneal fluid, likely related to the above. Distal esophageal wall thickening, raises concern for esophagitis. Low grade fever x 1 Leukocytosis, increased, now improvng -07/01 upper GI series No evidence of obstruction or leak with contrast demonstrated within the stomach, duodenum and proximal jejunum. -u/a no pyuria Acute respiratory distress on VM SHERLY, SP chronic inflammatory demyelinating polyneuropathy on chronic narcotic/NSAIDS and prednisone use seizure disorder GIB Plan: -Cont Ertapenem #3 (abx d #7) for ESBL and Micafungin #2 given isolation of C. glabrata. -07/02 SP Fluconazole #6 -07/01 SP ZOsyn #5 -f.u cx -Monitor CBC/CMP, temperatures -Sx f/u -wound care per hospital protocol and surgical team -aspiration precautions Discussed with RN. Subjective Allergies: Coded Allergies: No Known Allergies (Unverified , 01/11/13) Subjective afebrile wbc improving Objective Vital Signs Last 24 Hour Vital Signs Date Time Temp Pulse Resp B/P (MAP) Pulse Ox O2 Delivery O2 Flow Rate FiO2 07/03/18 11:58 98.6 96 18 132/82 (99) 98 07/03/18 09:00 Room Air Room Air 07/03/18 08:00 97.7 96 17 130/80 (97) 99 07/03/18 04:00 98.5 105 18 139/88 (105) 100 07/03/18 00:00 98.0 96 19 121/74 (90) 98 07/02/18 21:00 Room Air Room Air 07/02/18 20:00 97.9 99 19 141/77 (98) 98 07/02/18 16:00 99.0 101 19 129/77 (94) 98 Height (Feet): 5 Height (Inches): 5.00 Weight (Pounds): 127 Objective General Appearance: WD/WN, no apparent distress, alert Cardiovascular: normal rate Respiratory/Chest: normal breath sounds, no respiratory distress Abdominal Exam: normal bowel sounds, non tender, soft Extremities: non-tender Laboratory Tests Test 07/03/18 06:16 White Blood Count 14.4 K/UL (4.8-10.8) H Red Blood Count 3.47 M/UL (4.20-5.40) L Hemoglobin 8.1 G/DL (12.0-16.0) L Hematocrit 26.3 % (37.0-47.0) L Mean Corpuscular Volume 76 FL (80-99) L Mean Corpuscular Hemoglobin 23.5 PG (27.0-31.0) L Mean Corpuscular Hemoglobin Concent 30.9 G/DL (32.0-36.0) L Red Cell Distribution Width 19.6 % (11.6-14.8) H Platelet Count 555 K/UL (150-450) H Mean Platelet Volume 6.5 FL (6.5-10.1) Neutrophils (%) (Auto) 73.7 % (45.0-75.0) Lymphocytes (%) (Auto) 16.5 % (20.0-45.0) L Monocytes (%) (Auto) 5.7 % (1.0-10.0) Eosinophils (%) (Auto) 3.1 % (0.0-3.0) H Basophils (%) (Auto) 1.1 % (0.0-2.0) Sodium Level 148 MMOL/L (136-145) H Potassium Level 3.7 MMOL/L (3.5-5.1) Chloride Level 114 MMOL/L (98-107) H Carbon Dioxide Level 21 MMOL/L (21-32) Anion Gap 13 mmol/L (5-15) Blood Urea Nitrogen 1 mg/dL (7-18) L Creatinine 0.5 MG/DL (0.55-1.30) L Estimat Glomerular Filtration Rate > 60 mL/min (>60) Glucose Level 117 MG/DL (74-106) H Calcium Level 8.3 MG/DL (8.5-10.1) L Current Medications Medications (Trade) Dose Ordered Sig/Marisol Route PRN Reason Start Time Stop Time Status Last Admin Dose Admin Barium Sulfate (Barium EZ Gas II) 1 ea NOW PRN Radiology Procedure 07/02/18 11:15 07/05/18 11:05 Barium Sulfate (Barium EZ HD) 1 ea NOW PRN Radiology Procedure 07/02/18 11:15 07/05/18 11:05 Barium Sulfate (Varibar Thin Liquid powder) 148 gm NOW PRN Radiology Procedure 07/02/18 11:15 07/05/18 11:05 Dextrose (Dextrose 50%) 25 ml Q30M PRN IV Hypoglycemia 06/29/18 15:00 07/27/18 19:29 Dextrose (Dextrose 50%) 50 ml Q30M PRN IV Hypoglycemia 06/29/18 15:00 07/27/18 19:29 07/01/18 09:04 Dextrose/ Electrolytes 1,000 ml @ 125 mls/hr Q8H IV 07/01/18 14:00 07/31/18 13:59 07/03/18 08:57 Ertapenem 1 gm/ Sodium Chloride 55 ml @ 110 mls/hr Q24H IVPB 07/01/18 17:00 07/06/18 16:59 07/02/18 17:50 Heparin Sodium (Porcine) (Heparin 5000 units/ml) 5,000 units EVERY 12 HOURS SUBQ 06/29/18 21:00 07/28/18 08:59 07/03/18 08:58 Lorazepam (Ativan 2mg/ml 1ml) 1 mg Q4H PRN IV Agitation 07/01/18 19:00 07/08/18 18:59 07/01/18 20:41 Micafungin Sodium 100 mg/Sodium Chloride 110 ml @ 110 mls/hr Q24H IVPB 07/02/18 18:00 07/09/18 17:59 07/02/18 17:53 Morphine Sulfate (Morphine Sulfate) 2 mg Q3H PRN IVP FOR PAIN 06/29/18 15:00 07/05/18 14:59 07/03/18 09:37 Nitroglycerin (Ntg) 0.4 mg Q5M X 3 DOSES PRN SL Prn Chest Pain 06/29/18 14:45 07/27/18 19:29 Ondansetron HCl (Zofran) 4 mg Q6H PRN IVP Nausea & Vomiting 06/29/18 15:00 07/28/18 14:59 06/30/18 19:58 Pantoprazole (Protonix) 40 mg BID IVP 06/29/18 18:00 07/28/18 08:59 07/03/18 08:57 Phenol/Menthol (Chloraseptic) 1 spray Q3H PRN ORAL sore throat 06/30/18 00:30 07/30/18 00:29 07/02/18 14:07 Temazepam (Restoril) 15 mg HSPRN PRN ORAL Insomnia 06/29/18 19:30 07/04/18 19:29 Elvia Yi M.D. Jul 03, 2018 15:07
[2018-07-03 16:00] VITALS: BP 148/85
[2018-07-03] MEDS: Ertapenem 1 GM in NS 55 ML IVPB SCH (17:19)
[2018-07-03] MEDS: Micafungin 100 MG in NS 110 ML IVPB SCH (18:22)
--- NOTE | 2018-07-03 19:29 | NUR ---
NURSE NOTES: Report taken from ADRIEL Thomson. Patient is awake and in bed, A&Ox4. States that she is feeling less pain 5/10, and is able to ambulate. Friend at bedside. No signs of distress on room air, suction still available at bedside. Stated that the first time she stood up she did feel slightly light headed, RN instructed her to sit at the edge of the bed before standing, will monitor and notify MD if it continues. She wants to try bedside commode prior to use of bathroom. Surgical site c/d/i, open to air. IV site c/d/i and patent, running D5 .45%NS+40mEq K. Will attempt to collect stool sample during shift. Bed in lowest position, call light within reach.
--- NOTE | 2018-07-03 19:30 | NUR ---
HAND-OFF: Report given to Cruz MOREL. Patient is stable.
[2018-07-03 20:00] VITALS: BP 161/87
[2018-07-03] MEDS: Chloraseptic Spray 20mL Bottle ORAL PRN (20:38)
--- NOTE | 2018-07-03 21:30 | NUR ---
NURSE NOTES: Patient BP at 2030 was 161/87. Most recently is was 150/80. MD notified, as well as notified about patient platelet count of 555. Awaiting return call.
[2018-07-03] MEDS ORDERED: HydrALAZINE 50mg tab ORAL PRN (22:45)
[2018-07-04] VITALS (7 sets, daily range): BP systolic 122–149; BP diastolic 69–89
[2018-07-04] MEDS: D5NS w/KCl 40mEq 1000ml 1,000 ML IV SCH ×2 (05:45→14:32)
[2018-07-04] MEDS: Morphine Sulfate 2mg/ml Inj(IV/IM USE ONLY) IVP PRN ×3 (05:45→12:01)
[2018-07-04 07:12] LABS: ANION GAP 13 mmol/L (5-15); BLOOD UREA NITROGEN 1 mg/dL (7-18); CALCIUM 8.1 MG/DL (8.5-10.1); CARBON DIOXIDE 22 MMOL/L (21-32); CHLORIDE 110 MMOL/L (98-107); CREATININE 0.5 MG/DL (0.55-1.30); POTASSIUM 3.8 MMOL/L (3.5-5.1); SODIUM 145 MMOL/L (136-145)
[2018-07-04] MEDS: Chloraseptic Spray 20mL Bottle ORAL PRN (07:22)
--- NOTE | 2018-07-04 07:22 | NUR ---
HAND-OFF: Report given to ADRIEL Thomson. patient awake and eating breakfast, vitals stable.
[2018-07-04 07:28] LABS: HEMATOCRIT 25.1 % (37.0-47.0); HEMOGLOBIN 7.9 G/DL (12.0-16.0); MEAN CORPUSCULAR VOLUME 75 FL (80-99); PLATELET COUNT 626 K/UL (150-450); RED BLOOD COUNT 3.34 M/UL (4.20-5.40); RED CELL DISTRIBUTION WIDTH 19.7 % (11.6-14.8); WHITE BLOOD COUNT 13.7 K/UL (4.8-10.8)
--- NOTE | 2018-07-04 07:30 | NUR ---
NURSE NOTES: Patient is in bed awake and able to verbalize needs. Patient is stable and complains of pain, will administer medications as ordered. Breathing is even and unlabored. Patient encouraged to use call light for assistance, verbalized understanding. Patient is comfortable in bed with call light within reach. Will continue to monitor.
[2018-07-04] MEDS: Pantoprazole Inj IVP SCH (08:48)
[2018-07-04] MEDS: Heparin 5000 units/ml inj SUBQ SCH ×2 (08:49→20:24)
--- NOTE | 2018-07-04 10:02 | NUR ---
CASE MANAGEMENT:REVIEW 07/04/18 SI: POD #6 S/P REPAIR OF GASTRIC PERFORATION AND PARTIAL OMENTECTOMY PERITONITIS 100.8 88 20 122/83 99% ON RA WBC+13.7 H/H-7.9/25.1 IS: IV MICAFUNGIN Q24 IV ERTAPENEM Q24 IVF@125/HR HEPARIN SQ Q12 IV PROTONIX BID IV MORPHINE Q3HRS PRN : MED/SURG STATUS DCP: PATIENT IS FROM HOME PLAN: ADVANCE TO REGULAR DIET
--- NOTE | 2018-07-04 11:12 | Infectious Diseases Prog Note ---
Assessment/Plan Assessment/Plan Assessment: Gastric perforation Abd Cx: ESBL e.coli (S Zosyn, Ertapenem), C. glabrata, b. fragilis, lactobacillus sp -06/28 SP exploratory laparotomy; repair of gastric perforation with kary patch ;partial omentectomy -06/27 CT abd/p: Positive for pneumoperitoneum. This is concerning for bowel perforation. Location of perforation uncertain, but suspect duodenal or gastric antral ulcer. Marked small bowel dilatation. Suspect this represents ileus related to the above, although the possibility of distal small bowel obstruction should also be considered. Free intraperitoneal fluid, likely related to the above. Distal esophageal wall thickening, raises concern for esophagitis. Low grade fever, recurrent Leukocytosis, increased, now improvng -07/01 upper GI series No evidence of obstruction or leak with contrast demonstrated within the stomach, duodenum and proximal jejunum. 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 glabrata. -07/02 SP Fluconazole #6 -07/01 SP ZOsyn #5 -f.u cx -Monitor CBC/CMP, temperatures -Sx f/u -wound care per hospital protocol and surgical team -aspiration precautions -CXR -low threshold for CT abd/p w/ if ongoing fevers and rising WBC -CBC, CMP, ESR, CRP am Discussed with RN. Subjective Allergies: Coded Allergies: No Known Allergies (Unverified , 01/11/13) Subjective TM 100.8 wbc improving Advanced to regular diet Objective Vital Signs Last 24 Hour Vital Signs Date Time Temp Pulse Resp B/P (MAP) Pulse Ox O2 Delivery O2 Flow Rate FiO2 07/04/18 09:00 Room Air Room Air 07/04/18 08:00 98.3 96 20 138/80 (99) 98 07/04/18 05:38 99.2 88 20 122/83 (96) 99 07/04/18 04:00 100.8 94 21 136/85 (102) 93 07/04/18 00:00 99.7 95 16 125/69 (87) 96 07/03/18 21:00 Room Air Room Air 3/27/19 20:00 98.4 99 20 161/87 (111) 99 07/03/18 16:00 99.0 96 18 148/85 (106) 98 07/03/18 11:58 98.6 96 18 132/82 (99) 98 Height (Feet): 5 Height (Inches): 5.00 Weight (Pounds): 118 Objective General Appearance: WD/WN, no apparent distress, alert Cardiovascular: normal rate Respiratory/Chest: normal breath sounds, no respiratory distress Abdominal Exam: normal bowel sounds, non tender, soft Extremities: non-tender Laboratory Tests Test 07/04/18 05:40 White Blood Count 13.7 K/UL (4.8-10.8) H Red Blood Count 3.34 M/UL (4.20-5.40) L Hemoglobin 7.9 G/DL (12.0-16.0) L Hematocrit 25.1 % (37.0-47.0) L Mean Corpuscular Volume 75 FL (80-99) L Mean Corpuscular Hemoglobin 23.6 PG (27.0-31.0) L Mean Corpuscular Hemoglobin Concent 31.3 G/DL (32.0-36.0) L Red Cell Distribution Width 19.7 % (11.6-14.8) H Platelet Count 626 K/UL (150-450) H Mean Platelet Volume 6.1 FL (6.5-10.1) L Neutrophils (%) (Auto) % (45.0-75.0) Lymphocytes (%) (Auto) % (20.0-45.0) Monocytes (%) (Auto) % (1.0-10.0) Eosinophils (%) (Auto) % (0.0-3.0) Basophils (%) (Auto) % (0.0-2.0) Differential Total Cells Counted 100 Neutrophils % (Manual) 78 % (45-75) H Lymphocytes % (Manual) 13 % (20-45) L Monocytes % (Manual) 8 % (1-10) Eosinophils % (Manual) 1 % (0-3) Basophils % (Manual) 0 % (0-2) Band Neutrophils 0 % (0-8) Platelet Estimate Increased H Platelet Morphology Normal Hypochromasia 1+ Anisocytosis 1+ Microcytosis 1+ Sodium Level 145 MMOL/L (136-145) Potassium Level 3.8 MMOL/L (3.5-5.1) Chloride Level 110 MMOL/L (98-107) H Carbon Dioxide Level 22 MMOL/L (21-32) Anion Gap 13 mmol/L (5-15) Blood Urea Nitrogen 1 mg/dL (7-18) L Creatinine 0.5 MG/DL (0.55-1.30) L Estimat Glomerular Filtration Rate > 60 mL/min (>60) Glucose Level 110 MG/DL (74-106) H Calcium Level 8.1 MG/DL (8.5-10.1) L Current Medications Medications (Trade) Dose Ordered Sig/Marisol Route PRN Reason Start Time Stop Time Status Last Admin Dose Admin Barium Sulfate (Barium EZ Gas II) 1 ea NOW PRN Radiology Procedure 07/02/18 11:15 07/05/18 11:05 Barium Sulfate (Barium EZ HD) 1 ea NOW PRN Radiology Procedure 07/02/18 11:15 07/05/18 11:05 Barium Sulfate (Varibar Thin Liquid powder) 148 gm NOW PRN Radiology Procedure 07/02/18 11:15 07/05/18 11:05 Dextrose (Dextrose 50%) 25 ml Q30M PRN IV Hypoglycemia 06/29/18 15:00 07/27/18 19:29 Dextrose (Dextrose 50%) 50 ml Q30M PRN IV Hypoglycemia 06/29/18 15:00 07/27/18 19:29 07/01/18 09:04 Dextrose/ Electrolytes 1,000 ml @ 125 mls/hr Q8H IV 07/01/18 14:00 07/31/18 13:59 07/04/18 05:45 Ertapenem 1 gm/ Sodium Chloride 55 ml @ 110 mls/hr Q24H IVPB 07/01/18 17:00 07/06/18 16:59 07/03/18 17:19 Heparin Sodium (Porcine) (Heparin 5000 units/ml) 5,000 units EVERY 12 HOURS SUBQ 06/29/18 21:00 07/28/18 08:59 07/04/18 08:49 Hydralazine HCl (Apresoline) 50 mg Q6HR PRN ORAL For High Blood Pressure 07/03/18 22:45 08/02/18 22:44 Lorazepam (Ativan 2mg/ml 1ml) 1 mg Q4H PRN IV Agitation 07/01/18 19:00 07/08/18 18:59 07/01/18 20:41 Micafungin Sodium 100 mg/Sodium Chloride 110 ml @ 110 mls/hr Q24H IVPB 07/02/18 18:00 07/09/18 17:59 07/03/18 18:22 Morphine Sulfate (Morphine Sulfate) 2 mg Q3H PRN IVP FOR PAIN 06/29/18 15:00 07/05/18 14:59 07/04/18 08:48 Nitroglycerin (Ntg) 0.4 mg Q5M X 3 DOSES PRN SL Prn Chest Pain 06/29/18 14:45 07/27/18 19:29 Ondansetron HCl (Zofran) 4 mg Q6H PRN IVP Nausea & Vomiting 06/29/18 15:00 07/28/18 14:59 06/30/18 19:58 Pantoprazole (Protonix) 40 mg BID IVP 06/29/18 18:00 07/28/18 08:59 07/04/18 08:48 Phenol/Menthol (Chloraseptic) 1 spray Q3H PRN ORAL sore throat 06/30/18 00:30 07/30/18 00:29 07/04/18 07:22 Temazepam (Restoril) 15 mg HSPRN PRN ORAL Insomnia 06/29/18 19:30 07/04/18 19:29 07/03/18 20:38 Elvia Yi M.D. Jul 04, 2018 11:11
--- NOTE | 2018-07-04 12:14 | Pulmonology Progress Note ---
Assessment/Plan Problems: (1) Gastric ulcer (2) Perforated abdominal viscus (3) Bowel perforation (4) ATN (acute tubular necrosis) (5) Peritonitis Assessment/Plan wbc still high antifungal was added getting better iv fluids advance diet iv abx check cultrues check electrolytes dc home Subjective ROS Limited/Unobtainable: No Constitutional: Reports: no symptoms HEENT: Repors: no symptoms Allergies: Coded Allergies: No Known Allergies (Unverified , 01/11/13) Objective Last 24 Hour Vital Signs Date Time Temp Pulse Resp B/P (MAP) Pulse Ox O2 Delivery O2 Flow Rate FiO2 07/04/18 09:00 Room Air Room Air 07/04/18 08:00 98.3 96 20 138/80 (99) 98 07/04/18 05:38 99.2 88 20 122/83 (96) 99 07/04/18 04:00 100.8 94 21 136/85 (102) 93 07/04/18 00:00 99.7 95 16 125/69 (87) 96 07/03/18 21:00 Room Air Room Air 07/03/18 20:00 98.4 99 20 161/87 (111) 99 07/03/18 16:00 99.0 96 18 148/85 (106) 98 Intake and Output 07/03/18 07/04/18 18:59 06:59 Intake Total 1500 ml Balance 1500 ml Intake Oral 1500 ml # Voids 5 3 # Bowel Movements 3 General Appearance: cachetic HEENT: normocephalic, atraumatic Respiratory/Chest: chest wall non-tender, lungs clear Breasts: no masses Cardiovascular: normal peripheral pulses Abdomen: normal bowel sounds, soft, non tender Genitourinary: normal external genitalia Neurologic/Psychiatric: ship/rec/doc control II-XII grossly normal Laboratory Tests 07/04/18 05:40: White Blood Count 13.7H, Red Blood Count 3.34L, Hemoglobin 7.9L, Hematocrit 25.1L, Mean Corpuscular Volume 75L, Mean Corpuscular Hemoglobin 23.6L, Mean Corpuscular Hemoglobin Concent 31.3L, Red Cell Distribution Width 19.7H, Platelet Count 626H, Mean Platelet Volume 6.1L, Neutrophils (%) (Auto) , Lymphocytes (%) (Auto) , Monocytes (%) (Auto) , Eosinophils (%) (Auto) , Basophils (%) (Auto) , Differential Total Cells Counted 100, Neutrophils % ( Manual) 78H, Lymphocytes % (Manual) 13L, Monocytes % (Manual) 8, Eosinophils % ( Manual) 1, Basophils % (Manual) 0, Band Neutrophils 0, Platelet Estimate IncreasedH, Platelet Morphology Normal, Hypochromasia 1+, Anisocytosis 1+, Microcytosis 1+, Sodium Level 145, Potassium Level 3.8, Chloride Level 110H, Carbon Dioxide Level 22, Anion Gap 13, Blood Urea Nitrogen 1L, Creatinine 0.5L, Estimat Glomerular Filtration Rate > 60, Glucose Level 110H, Calcium Level 8.1L Current Medications Medications (Trade) Dose Ordered Sig/Marisol Route PRN Reason Start Time Stop Time Status Last Admin Dose Admin Barium Sulfate (Barium EZ Gas II) 1 ea NOW PRN Radiology Procedure 07/02/18 11:15 07/05/18 11:05 Barium Sulfate (Barium EZ HD) 1 ea NOW PRN Radiology Procedure 07/02/18 11:15 07/05/18 11:05 Barium Sulfate (Varibar Thin Liquid powder) 148 gm NOW PRN Radiology Procedure 07/02/18 11:15 07/05/18 11:05 Dextrose (Dextrose 50%) 25 ml Q30M PRN IV Hypoglycemia 06/29/18 15:00 07/27/18 19:29 Dextrose (Dextrose 50%) 50 ml Q30M PRN IV Hypoglycemia 06/29/18 15:00 07/27/18 19:29 07/01/18 09:04 Dextrose/ Electrolytes 1,000 ml @ 125 mls/hr Q8H IV 07/01/18 14:00 07/31/18 13:59 07/04/18 05:45 Ertapenem 1 gm/ Sodium Chloride 55 ml @ 110 mls/hr Q24H IVPB 07/01/18 17:00 07/06/18 16:59 07/03/18 17:19 Heparin Sodium (Porcine) (Heparin 5000 units/ml) 5,000 units EVERY 12 HOURS SUBQ 06/29/18 21:00 07/28/18 08:59 07/04/18 08:49 Hydralazine HCl (Apresoline) 50 mg Q6HR PRN ORAL For High Blood Pressure 07/03/18 22:45 08/02/18 22:44 Lorazepam (Ativan 2mg/ml 1ml) 1 mg Q4H PRN IV Agitation 07/01/18 19:00 07/08/18 18:59 07/01/18 20:41 Micafungin Sodium 100 mg/Sodium Chloride 110 ml @ 110 mls/hr Q24H IVPB 07/02/18 18:00 07/09/18 17:59 07/03/18 18:22 Morphine Sulfate (Morphine Sulfate) 2 mg Q3H PRN IVP FOR PAIN 06/29/18 15:00 07/05/18 14:59 07/04/18 12:01 Nitroglycerin (Ntg) 0.4 mg Q5M X 3 DOSES PRN SL Prn Chest Pain 06/29/18 14:45 07/27/18 19:29 Ondansetron HCl (Zofran) 4 mg Q6H PRN IVP Nausea & Vomiting 06/29/18 15:00 07/28/18 14:59 06/30/18 19:58 Pantoprazole (Protonix) 40 mg BID IVP 06/29/18 18:00 07/28/18 08:59 07/04/18 08:48 Phenol/Menthol (Chloraseptic) 1 spray Q3H PRN ORAL sore throat 06/30/18 00:30 07/30/18 00:29 07/04/18 07:22 Temazepam (Restoril) 15 mg HSPRN PRN ORAL Insomnia 06/29/18 19:30 07/04/18 19:29 07/03/18 20:38 Allie Cabrera MD Jul 04, 2018 12:14
--- NOTE | 2018-07-04 12:27 | GI Progress Note ---
Assessment/Plan Problems: (1) Peritonitis ICD Codes: K65.9 - Peritonitis, unspecified SNOMED: 09841310 (2) Surgical pneumoperitoneum ICD Codes: K66.8 - Other specified disorders of peritoneum SNOMED: 78703719 (3) Bowel perforation ICD Codes: K63.1 - Perforation of intestine (nontraumatic) SNOMED: 48423132 (4) Perforated abdominal viscus SNOMED: 570756957 (5) GI bleed ICD Codes: K92.2 - Gastrointestinal hemorrhage, unspecified SNOMED: 56848049 (6) Gastric ulcer ICD Codes: K25.9 - Gastric ulcer, unspecified as acute or chronic, without hemorrhage or perforation SNOMED: 407668839 Status: stable Status Narrative Discussed with Dr. Cedeño. Assessment/Plan OPERATION PERFORMED: 1. Exploratory laparotomy. 2. Repair of gastric perforation with Román patch. 3. Partial omentectomy. upper GI series reviewed, No evidence of obstruction or leak with contrast demonstrated within the stomach, duodenum and proximal jejunum. surgical recs CLD, adv per surgery ivf pain control ppi fu H&H, prn transfusions am labs The patient was seen and examined at bedside and all new and available data was reviewed in the patients chart. I agree with the above findings, impression and plan. (Patient seen earlier today. Signature stamp does not reflect patient encounter time.). - Conrad Cedeño MD Subjective Gastrointestinal/Abdominal: Reports: no symptoms Subjective Abdominal pain improved Objective Last 24 Hour Vital Signs Date Time Temp Pulse Resp B/P (MAP) Pulse Ox O2 Delivery O2 Flow Rate FiO2 07/04/18 09:00 Room Air Room Air 07/04/18 08:00 98.3 96 20 138/80 (99) 98 07/04/18 05:38 99.2 88 20 122/83 (96) 99 07/04/18 04:00 100.8 94 21 136/85 (102) 93 07/04/18 00:00 99.7 95 16 125/69 (87) 96 07/03/18 21:00 Room Air Room Air 07/03/18 20:00 98.4 99 20 161/87 (111) 99 07/03/18 16:00 99.0 96 18 148/85 (106) 98 Intake and Output 07/03/18 07/04/18 18:59 06:59 Intake Total 1500 ml Balance 1500 ml Intake Oral 1500 ml # Voids 5 3 # Bowel Movements 3 Laboratory Tests Test 07/04/18 05:40 White Blood Count 13.7 K/UL (4.8-10.8) H Red Blood Count 3.34 M/UL (4.20-5.40) L Hemoglobin 7.9 G/DL (12.0-16.0) L Hematocrit 25.1 % (37.0-47.0) L Mean Corpuscular Volume 75 FL (80-99) L Mean Corpuscular Hemoglobin 23.6 PG (27.0-31.0) L Mean Corpuscular Hemoglobin Concent 31.3 G/DL (32.0-36.0) L Red Cell Distribution Width 19.7 % (11.6-14.8) H Platelet Count 626 K/UL (150-450) H Mean Platelet Volume 6.1 FL (6.5-10.1) L Neutrophils (%) (Auto) % (45.0-75.0) Lymphocytes (%) (Auto) % (20.0-45.0) Monocytes (%) (Auto) % (1.0-10.0) Eosinophils (%) (Auto) % (0.0-3.0) Basophils (%) (Auto) % (0.0-2.0) Differential Total Cells Counted 100 Neutrophils % (Manual) 78 % (45-75) H Lymphocytes % (Manual) 13 % (20-45) L Monocytes % (Manual) 8 % (1-10) Eosinophils % (Manual) 1 % (0-3) Basophils % (Manual) 0 % (0-2) Band Neutrophils 0 % (0-8) Platelet Estimate Increased H Platelet Morphology Normal Hypochromasia 1+ Anisocytosis 1+ Microcytosis 1+ Sodium Level 145 MMOL/L (136-145) Potassium Level 3.8 MMOL/L (3.5-5.1) Chloride Level 110 MMOL/L (98-107) H Carbon Dioxide Level 22 MMOL/L (21-32) Anion Gap 13 mmol/L (5-15) Blood Urea Nitrogen 1 mg/dL (7-18) L Creatinine 0.5 MG/DL (0.55-1.30) L Estimat Glomerular Filtration Rate > 60 mL/min (>60) Glucose Level 110 MG/DL (74-106) H Calcium Level 8.1 MG/DL (8.5-10.1) L Height (Feet): 5 Height (Inches): 5.00 Weight (Pounds): 118 General Appearance: WD/WN, no apparent distress, alert Cardiovascular: normal rate Respiratory/Chest: normal breath sounds, no respiratory distress Abdominal Exam: normal bowel sounds, non tender, soft Extremities: normal range of motion, non-tender Tamara Adkins NP Jul 04, 2018 12:27
--- NOTE | 2018-07-04 12:48 | Diagnostic Imaging Report ---
Indication: Dyspnea Comparison: 04/23/2018 A single view chest radiograph was obtained. Findings: Hazy opacities noted at the lung bases. Cardiomegaly is present. Pulmonary vascularity is within normal limits. The bones are osteopenic. IMPRESSION: Bilateral pleural effusions suspected. Cardiomegaly
--- NOTE | 2018-07-04 13:04 | NUR ---
RD ASSESSMENT & RECOMMENDATIONS SEE CARE ACTIVITY FOR COMPLETE ASSESSMENT DAILY ESTIMATED NEEDS: Needs based on surgery/ 55kg 25-30 kcals/kg 1033-2361 total kcals 1-2 g protein/kg 55-110 g total protein 25-30 mL/kg 0364-1958 total fluid mLs NUTRITION DIAGNOSIS: Altered GI function R/T gastric ulcer perforation as evidenced by s/p exploratory laparotomy, repair of gastric ulcer perforation and partial omentectomy, NGT removed, diet now advanced to regular. CURRENT DIET:REGULAR PO DIET RECOMMENDATIONS: SOFT, BLAND ADDITIONAL RECOMMENDATIONS: * Standing wt as able for accurate CBW * Monitor PO tolerance and acceptance * Monitor lytes, replete as needed * MVI x 1, Min 1pkt BID for surgical wound healing
--- NOTE | 2018-07-04 13:34 | NUR ---
RADIOLOGY DEPT., CHEST X-RAY DONE.-P.DYE
--- NOTE | 2018-07-04 14:23 | NUR ---
*-* INSURANCE *-* UPDATED CLINICALS AND REVIEWS HAVE BEEN FAXED TO: [facility]AU GIRON ([facility] [place] P- [phone] F- [phone]....IF NEEDED F/S FAXED TO [employer] C[employer]# [phone] NO CALL CENTER TEAM LEADER ASSIGNED AT THIS TIME PLEASE FAX THE REVIEW/CLINICAL P- [phone] F- [phone]
--- NOTE | 2018-07-04 14:52 | NUR ---
PT NOTE Patient seen for initial evaluation, see complete evaluation for details. Patient presents with generalized weakness and pain which impairs patient's functional mobility. Patient will benefit from skilled inpatient PT intervention to address strength, balance, safety and functional mobility to return to prior level of function. Anticipate discharge home with family assistance once cleared by MD. No DME needs anticipated. Patient is cleared to ambulate with nursing supervision in critical access hospital. Addendum: 07/04/18 at 1453 by UMM YANG PT Amended: Links added.
--- NOTE | 2018-07-04 14:59 | NUR ---
NURSE NOTES: CXR results relayed to Dr. Cabrera, new orders to D/C IV fluids carried out. Will continue to monitor patient.
--- NOTE | 2018-07-04 15:22 | General Progress Note ---
Progress Note Progress Note doing great tolerating diet comfortable. +bowel function wound c/d/i d/c planning f/u given for 07/10/18 at 11AM Maurice Grady Jul 04, 2018 15:22
[2018-07-04] MEDS: HYDROcodone/Acetamin 5/325 tab ORAL PRN ×2 (16:44→20:48)
[2018-07-04] MEDS: Ertapenem 1 GM in NS 55 ML IVPB SCH (16:44)
[2018-07-04] MEDS ORDERED: Tubing IV Secondary IV ONE (17:06)
--- NOTE | 2018-07-04 17:30 | Internal Med Progress Note ---
Subjective Date of Service: Jul 04, 2018 Physician Name Tay Boothe Attending Physician Oseas Pelleteir MD Current Medications Medications (Trade) Dose Ordered Sig/Marisol Route PRN Reason Start Time Stop Time Status Last Admin Dose Admin Acetaminophen/ Hydrocodone Bitart ([place] 5/325) 1 tab Q4H PRN ORAL Moderate Pain (Pain Scale 4-6) 07/04/18 15:26 07/11/18 15:25 07/04/18 16:44 Ertapenem 1 gm/ Sodium Chloride 55 ml @ 110 mls/hr Q24H IVPB 07/01/18 17:00 07/06/18 16:59 07/04/18 16:44 Heparin Sodium (Porcine) (Heparin 5000 units/ml) 5,000 units EVERY 12 HOURS SUBQ 06/29/18 21:00 07/28/18 08:59 07/04/18 08:49 Hydralazine HCl (Apresoline) 50 mg Q6HR PRN ORAL For High Blood Pressure 07/03/18 22:45 08/02/18 22:44 Lorazepam (Ativan 2mg/ml 1ml) 1 mg Q4H PRN IV Agitation 07/01/18 19:00 07/08/18 18:59 07/01/18 20:41 Micafungin Sodium 100 mg/Sodium Chloride 110 ml @ 110 mls/hr Q24H IVPB 07/02/18 18:00 07/09/18 17:59 07/03/18 18:22 Nitroglycerin (Ntg) 0.4 mg Q5M X 3 DOSES PRN SL Prn Chest Pain 06/29/18 14:45 07/27/18 19:29 Ondansetron HCl (Zofran) 4 mg Q6H PRN IVP Nausea & Vomiting 06/29/18 15:00 07/28/18 14:59 06/30/18 19:58 Pantoprazole (Protonix) 40 mg EVERY 12 HOURS ORAL 07/04/18 21:00 08/03/18 20:59 Temazepam (Restoril) 15 mg HSPRN PRN ORAL Insomnia 06/29/18 19:30 07/04/18 19:29 07/03/18 20:38 Allergies: Coded Allergies: No Known Allergies (Unverified , 01/11/13) ROS Limited/Unobtainable: No Constitutional: Reports: no symptoms HEENT: Reports: no symptoms Cardiovascular: Reports: no symptoms Respiratory: Reports: no symptoms Gastrointestinal/Abdominal: Reports: no symptoms Genitourinary: Reports: no symptoms Neurologic/Psychiatric: Reports: no symptoms Subjective 47 YO F admitted with abdominal pain. Now perforated gastric viscus. Cover for Int romero-Dr Pelletier. S/P expl laparotomy 06/27/18. Objective Last Vital Signs Date Time Temp Pulse Resp B/P (MAP) Pulse Ox O2 Delivery O2 Flow Rate FiO2 07/04/18 12:00 99.1 87 20 149/89 (109) 98 07/04/18 09:00 Room Air Room Air 06/29/18 20:00 21 06/29/18 12:00 12.0 Laboratory Tests Test 07/04/18 05:40 White Blood Count 13.7 K/UL (4.8-10.8) H Red Blood Count 3.34 M/UL (4.20-5.40) L Hemoglobin 7.9 G/DL (12.0-16.0) L Hematocrit 25.1 % (37.0-47.0) L Mean Corpuscular Volume 75 FL (80-99) L Mean Corpuscular Hemoglobin 23.6 PG (27.0-31.0) L Mean Corpuscular Hemoglobin Concent 31.3 G/DL (32.0-36.0) L Red Cell Distribution Width 19.7 % (11.6-14.8) H Platelet Count 626 K/UL (150-450) H Mean Platelet Volume 6.1 FL (6.5-10.1) L Neutrophils (%) (Auto) % (45.0-75.0) Lymphocytes (%) (Auto) % (20.0-45.0) Monocytes (%) (Auto) % (1.0-10.0) Eosinophils (%) (Auto) % (0.0-3.0) Basophils (%) (Auto) % (0.0-2.0) Differential Total Cells Counted 100 Neutrophils % (Manual) 78 % (45-75) H Lymphocytes % (Manual) 13 % (20-45) L Monocytes % (Manual) 8 % (1-10) Eosinophils % (Manual) 1 % (0-3) Basophils % (Manual) 0 % (0-2) Band Neutrophils 0 % (0-8) Platelet Estimate Increased H Platelet Morphology Normal Hypochromasia 1+ Anisocytosis 1+ Microcytosis 1+ Sodium Level 145 MMOL/L (136-145) Potassium Level 3.8 MMOL/L (3.5-5.1) Chloride Level 110 MMOL/L (98-107) H Carbon Dioxide Level 22 MMOL/L (21-32) Anion Gap 13 mmol/L (5-15) Blood Urea Nitrogen 1 mg/dL (7-18) L Creatinine 0.5 MG/DL (0.55-1.30) L Estimat Glomerular Filtration Rate > 60 mL/min (>60) Glucose Level 110 MG/DL (74-106) H Calcium Level 8.1 MG/DL (8.5-10.1) L Intake and Output 07/03/18 07/04/18 19:00 07:00 Intake Total 1500 ml Balance 1500 ml Intake Oral 1500 ml # Voids 5 3 # Bowel Movements 3 Objective PHYSICAL EXAMINATION: VITAL SIGNS: On admission, temperature 98.8, pulse 116, respirations 24, and blood pressure 96/73. GENERAL: The patient is awake and responsive, in no acute distress at this time. HEAD AND NECK: Pupils are equal and reactive. Extraocular movements are intact. Neck was supple. No JVD. The patient has a NG tube to intermittent suction. LUNGS: Good air entry. No wheezes or rhonchi. Decreased air in bases. HEART: S1, S2. Tachycardic. No murmur or gallop. ABDOMEN: Soft. Generalized tenderness. Midline surgical incision from the recent abdominal surgery. EXTREMITIES: No cyanosis, clubbing, or edema. NEUROLOGIC: Cranial nerves II through XII grossly normal. Moves all four extremities. Gait is intact. Assessment/Plan Assessment/Plan ASSESSMENT: 1. Abdominal pain, secondary to perforated gastric ulcer. 2. Acute kidney injury/acute tubular necrosis. 3. Peritonitis. 4. History of gastric ulcer. 5. Acute anemia, most likely secondary to acute blood loss. 6. Severe dehydration. 7. History of chronic inflammatory demyelinating polyneuropathy. PLAN: 1. Med/surg. 2. S/P exploratory laparotomy, repair of gastric ulcer perforation and partial omemtectomy 06/27/[address] Grady recommendation from General Surgery Dr. Pat from Pulmonary Critical Care. 3. Broad spectrum antibiotics with Zosyn and Diflucan. 4. We will follow up with the pain medication. 5. Code status is Full Code. 6. Protonix IV twice a day. 7. tolerating regular diet Discharge planning Tay Boothe MD Jul 04, 2018 17:30
[2018-07-04] MEDS: Micafungin 100 MG in NS 110 ML IVPB SCH (17:43)
--- NOTE | 2018-07-04 19:30 | NUR ---
HAND-OFF: Report given to Yasmine MOREL. Patient is stable.
--- NOTE | 2018-07-04 19:46 | NUR ---
NURSE NOTES: Received patient in bed, awake, alert, oriented, ambulatory, BRP privileges,VSS, afebrile, no acute distress noted. Call light is within reach, bed is in lowest position, locked, alarm is on. Will continue to monitor for safety and comfort.
[2018-07-05] VITALS: BP 127/71
[2018-07-05] MEDS: HYDROcodone/Acetamin 5/325 tab ORAL PRN ×2 (02:03→08:12)
[2018-07-05 04:00] VITALS: BP 147/88
[2018-07-05] MEDS ORDERED: guaiFENesin 100mg/5ml Liq ud ORAL PRN (06:30)
--- NOTE | 2018-07-05 06:55 | NUR ---
HAND-OFF: Report given to Benji MOREL.
[2018-07-05 07:14] LABS: BASOPHILS % (AUTO) 0.9 % (0.0-2.0); EOSINOPHILS % (AUTO) 2.6 % (0.0-3.0); HEMATOCRIT 25.7 % (37.0-47.0); LYMPHOCYTES % (AUTO) 20.6 % (20.0-45.0); MEAN CORPUSCULAR VOLUME 75 FL (80-99); NEUTROPHILS % (AUTO) 69.9 % (45.0-75.0); PLATELET COUNT 696 K/UL (150-450); RED BLOOD COUNT 3.44 M/UL (4.20-5.40); WHITE BLOOD COUNT 12.6 K/UL (4.8-10.8)
--- NOTE | 2018-07-05 07:15 | NUR ---
NURSE NOTES: Patient is in bed awake and able to verbalize needs. Patient is stable, no acute distress at this time. Patient complains of severe pain, will administer medication as ordered. Breathing is even and unlabored, no SOB noted. Patient encouraged to use call light for assistance, verbalized understanding. Patient is in bed with call light within reach, will continue to monitor.
[2018-07-05 07:34] LABS: ALANINE AMINOTRANSFERASE 23 U/L (12-78); ALBUMIN/GLOBULIN RATIO 0.4 (1.0-2.7); ALKALINE PHOSPHATASE 73 U/L (46-116); ANION GAP 12 mmol/L (5-15); ASPARTATE AMINO TRANSFERASE 19 U/L (15-37); BILIRUBIN,TOTAL 0.2 MG/DL (0.2-1.0); BLOOD UREA NITROGEN 2 mg/dL (7-18); CALCIUM 8.3 MG/DL (8.5-10.1); CARBON DIOXIDE 23 MMOL/L (21-32); CHLORIDE 106 MMOL/L (98-107); CREATININE 0.5 MG/DL (0.55-1.30); POTASSIUM 3.4 MMOL/L (3.5-5.1); SODIUM 141 MMOL/L (136-145)
[2018-07-05 08:00] VITALS: BP 107/68
[2018-07-05] MEDS: Heparin 5000 units/ml inj SUBQ SCH (08:15)
--- NOTE | 2018-07-05 11:44 | NUR ---
CASE MANAGEMENT:REVIEW 07/05/18 SI: POD #7 S/P REPAIR OF GASTRIC PERFORATION AND PARTIAL OMENTECTOMY PERITONITIS 97.8 77 18 147/88 98% ON RA WBC+12.6 H/H-8.0/25.7 MAG-1.0 IS: IV MICAFUNGIN Q24 IV ERTAPENEM Q24 HEPARIN SQ Q12 IV PROTONIX BID IV MORPHINE Q3HRS PRN : MED/SURG STATUS DCP: PATIENT IS FROM HOME PLAN: ADVANCE TO REGULAR DIET
[2018-07-05 12:00] VITALS: BP 140/80
--- NOTE | 2018-07-05 12:09 | GI Progress Note ---
Assessment/Plan Problems: (1) Peritonitis ICD Codes: K65.9 - Peritonitis, unspecified SNOMED: 00644833 (2) Surgical pneumoperitoneum ICD Codes: K66.8 - Other specified disorders of peritoneum SNOMED: 36687700 (3) Bowel perforation ICD Codes: K63.1 - Perforation of intestine (nontraumatic) SNOMED: 26901093 (4) Perforated abdominal viscus SNOMED: 178380076 (5) GI bleed ICD Codes: K92.2 - Gastrointestinal hemorrhage, unspecified SNOMED: 25641175 (6) Gastric ulcer ICD Codes: K25.9 - Gastric ulcer, unspecified as acute or chronic, without hemorrhage or perforation SNOMED: 384691920 Status: stable Status Narrative Discussed with Dr. Cedeño. Assessment/Plan OPERATION PERFORMED: 1. Exploratory laparotomy. 2. Repair of gastric perforation with Román patch. 3. Partial omentectomy. upper GI series reviewed, No evidence of obstruction or leak with contrast demonstrated within the stomach, duodenum and proximal jejunum. surgical recs CLD, adv per surgery ivf pain control ppi fu H&H, prn transfusions am labs The patient was seen and examined at bedside and all new and available data was reviewed in the patients chart. I agree with the above findings, impression and plan. (Patient seen earlier today. Signature stamp does not reflect patient encounter time.). - Conrad Cedeño MD Subjective Subjective Abdominal pain improved Objective Last 24 Hour Vital Signs Date Time Temp Pulse Resp B/P (MAP) Pulse Ox O2 Delivery O2 Flow Rate FiO2 07/05/18 04:00 97.8 77 18 147/88 (107) 07/05/18 00:00 98.0 88 18 127/71 (89) 07/04/18 21:00 Room Air Room Air 07/04/18 20:00 99.0 82 18 143/73 (96) 07/04/18 16:00 99.3 94 18 129/76 (93) 97 Intake and Output 07/04/18 07/05/18 18:59 06:59 Intake Total 640 ml 400 ml Output Total 801 ml Balance -161 ml 400 ml Intake Oral 640 ml Other 400 ml Output Urine Total 800 ml Stool Total 1 ml # Voids 1 Laboratory Tests Test 07/05/18 05:35 White Blood Count 12.6 K/UL (4.8-10.8) H Red Blood Count 3.44 M/UL (4.20-5.40) L Hemoglobin 8.0 G/DL (12.0-16.0) L Hematocrit 25.7 % (37.0-47.0) L Mean Corpuscular Volume 75 FL (80-99) L Mean Corpuscular Hemoglobin 23.3 PG (27.0-31.0) L Mean Corpuscular Hemoglobin Concent 31.2 G/DL (32.0-36.0) L Red Cell Distribution Width 20.0 % (11.6-14.8) H Platelet Count 696 K/UL (150-450) H Mean Platelet Volume 5.8 FL (6.5-10.1) L Neutrophils (%) (Auto) 69.9 % (45.0-75.0) Lymphocytes (%) (Auto) 20.6 % (20.0-45.0) Monocytes (%) (Auto) 6.0 % (1.0-10.0) Eosinophils (%) (Auto) 2.6 % (0.0-3.0) Basophils (%) (Auto) 0.9 % (0.0-2.0) Erythrocyte Sedimentation Rate 97 MM/HR (0-20) H Sodium Level 141 MMOL/L (136-145) Potassium Level 3.4 MMOL/L (3.5-5.1) L Chloride Level 106 MMOL/L (98-107) Carbon Dioxide Level 23 MMOL/L (21-32) Anion Gap 12 mmol/L (5-15) Blood Urea Nitrogen 2 mg/dL (7-18) L Creatinine 0.5 MG/DL (0.55-1.30) L Estimat Glomerular Filtration Rate > 60 mL/min (>60) Glucose Level 85 MG/DL (74-106) Calcium Level 8.3 MG/DL (8.5-10.1) L Phosphorus Level 5.0 MG/DL (2.5-4.9) H Magnesium Level 1.0 MG/DL (1.8-2.4) L Total Bilirubin 0.2 MG/DL (0.2-1.0) Aspartate Amino Transf (AST/SGOT) 19 U/L (15-37) Alanine Aminotransferase (ALT/SGPT) 23 U/L (12-78) Alkaline Phosphatase 73 U/L (46-116) C-Reactive Protein, Quantitative 6.6 mg/dL (0.00-0.90) H Total Protein 6.7 G/DL (6.4-8.2) Albumin 2.0 G/DL (3.4-5.0) L Globulin 4.7 g/dL Albumin/Globulin Ratio 0.4 (1.0-2.7) L Height (Feet): 5 Height (Inches): 5.00 Weight (Pounds): 118 General Appearance: WD/WN, no apparent distress, alert Cardiovascular: normal rate Respiratory/Chest: normal breath sounds, no respiratory distress Abdominal Exam: normal bowel sounds, non tender, soft Extremities: normal range of motion, non-tender Tamara Adkins NP Jul 05, 2018 12:09
--- NOTE | 2018-07-05 12:11 | Infectious Diseases Prog Note ---
Assessment/Plan Assessment/Plan Assessment: Gastric perforation Abd Cx: ESBL e.coli (S Zosyn, Ertapenem), C. glabrata, b. fragilis, lactobacillus sp -06/28 SP exploratory laparotomy; repair of gastric perforation with kary patch ;partial omentectomy -06/27 CT abd/p: Positive for pneumoperitoneum. This is concerning for bowel perforation. Location of perforation uncertain, but suspect duodenal or gastric antral ulcer. Marked small bowel dilatation. Suspect this represents ileus related to the above, although the possibility of distal small bowel obstruction should also be considered. Free intraperitoneal fluid, likely related to the above. Distal esophageal wall thickening, raises concern for esophagitis. Low grade fever, recurrent;improving -07/04 CXR: Bilateral pleural effusions suspected.Cardiomegaly Cdiff neg Leukocytosis, increased, now improvng -07/01 upper GI series No evidence of obstruction or leak with contrast demonstrated within the stomach, duodenum and proximal jejunum. 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 glabrata. -upon discharge can go off abx -07/02 SP Fluconazole #6 -07/01 SP ZOsyn #5 -f.u cx -Monitor CBC/CMP, temperatures -Sx f/u -wound care per hospital protocol and surgical team -aspiration precautions -low threshold for CT abd/p w/ if ongoing fevers and rising WBC Discussed with RN. Subjective Allergies: Coded Allergies: No Known Allergies (Unverified , 01/11/13) Subjective afebrile >24hrs wbc improving tolerating regular diet feeling better ESR and CRP improved Objective Vital Signs Last 24 Hour Vital Signs Date Time Temp Pulse Resp B/P (MAP) Pulse Ox O2 Delivery O2 Flow Rate FiO2 07/05/18 04:00 97.8 77 18 147/88 (107) 07/05/18 00:00 98.0 88 18 127/71 (89) 07/04/18 21:00 Room Air Room Air 07/04/18 20:00 99.0 82 18 143/73 (96) 07/04/18 16:00 99.3 94 18 129/76 (93) 97 Height (Feet): 5 Height (Inches): 5.00 Weight (Pounds): 118 Objective General Appearance: WD/WN, no apparent distress, alert Cardiovascular: normal rate Respiratory/Chest: normal breath sounds, no respiratory distress Abdominal Exam: normal bowel sounds, non tender, soft Extremities: non-tender Microbiology Date/Time Source Procedure Growth Status 07/04/18 11:00 Stool Clostridium difficile Toxin Assay - Final Complete Laboratory Tests Test 07/05/18 05:35 White Blood Count 12.6 K/UL (4.8-10.8) H Red Blood Count 3.44 M/UL (4.20-5.40) L Hemoglobin 8.0 G/DL (12.0-16.0) L Hematocrit 25.7 % (37.0-47.0) L Mean Corpuscular Volume 75 FL (80-99) L Mean Corpuscular Hemoglobin 23.3 PG (27.0-31.0) L Mean Corpuscular Hemoglobin Concent 31.2 G/DL (32.0-36.0) L Red Cell Distribution Width 20.0 % (11.6-14.8) H Platelet Count 696 K/UL (150-450) H Mean Platelet Volume 5.8 FL (6.5-10.1) L Neutrophils (%) (Auto) 69.9 % (45.0-75.0) Lymphocytes (%) (Auto) 20.6 % (20.0-45.0) Monocytes (%) (Auto) 6.0 % (1.0-10.0) Eosinophils (%) (Auto) 2.6 % (0.0-3.0) Basophils (%) (Auto) 0.9 % (0.0-2.0) Erythrocyte Sedimentation Rate 97 MM/HR (0-20) H Sodium Level 141 MMOL/L (136-145) Potassium Level 3.4 MMOL/L (3.5-5.1) L Chloride Level 106 MMOL/L (98-107) Carbon Dioxide Level 23 MMOL/L (21-32) Anion Gap 12 mmol/L (5-15) Blood Urea Nitrogen 2 mg/dL (7-18) L Creatinine 0.5 MG/DL (0.55-1.30) L Estimat Glomerular Filtration Rate > 60 mL/min (>60) Glucose Level 85 MG/DL (74-106) Calcium Level 8.3 MG/DL (8.5-10.1) L Phosphorus Level 5.0 MG/DL (2.5-4.9) H Magnesium Level 1.0 MG/DL (1.8-2.4) L Total Bilirubin 0.2 MG/DL (0.2-1.0) Aspartate Amino Transf (AST/SGOT) 19 U/L (15-37) Alanine Aminotransferase (ALT/SGPT) 23 U/L (12-78) Alkaline Phosphatase 73 U/L (46-116) C-Reactive Protein, Quantitative 6.6 mg/dL (0.00-0.90) H Total Protein 6.7 G/DL (6.4-8.2) Albumin 2.0 G/DL (3.4-5.0) L Globulin 4.7 g/dL Albumin/Globulin Ratio 0.4 (1.0-2.7) L Current Medications Medications (Trade) Dose Ordered Sig/Marisol Route PRN Reason Start Time Stop Time Status Last Admin Dose Admin Acetaminophen/ Hydrocodone Bitart ([place] 5/325) 1 tab Q4H PRN ORAL Moderate Pain (Pain Scale 4-6) 07/04/18 15:26 07/11/18 15:25 07/05/18 08:12 Ertapenem 1 gm/ Sodium Chloride 55 ml @ 110 mls/hr Q24H IVPB 07/01/18 17:00 07/06/18 23:59 07/04/18 16:44 Guaifenesin (Robitussin) 200 mg Q4H PRN ORAL For Cough 07/05/18 06:30 08/04/18 06:29 Heparin Sodium (Porcine) (Heparin 5000 units/ml) 5,000 units EVERY 12 HOURS SUBQ 06/29/18 21:00 07/28/18 08:59 07/05/18 08:15 Hydralazine HCl (Apresoline) 50 mg Q6HR PRN ORAL For High Blood Pressure 07/03/18 22:45 08/02/18 22:44 Lorazepam (Ativan 2mg/ml 1ml) 1 mg Q4H PRN IV Agitation 07/01/18 19:00 07/08/18 18:59 07/01/18 20:41 Micafungin Sodium 100 mg/Sodium Chloride 110 ml @ 110 mls/hr Q24H IVPB 07/02/18 18:00 07/09/18 17:59 07/04/18 17:43 Nitroglycerin (Ntg) 0.4 mg Q5M X 3 DOSES PRN SL Prn Chest Pain 06/29/18 14:45 07/27/18 19:29 Ondansetron HCl (Zofran) 4 mg Q6H PRN IVP Nausea & Vomiting 06/29/18 15:00 07/28/18 14:59 06/30/18 19:58 Pantoprazole (Protonix) 40 mg EVERY 12 HOURS ORAL 07/04/18 21:00 08/03/18 20:59 07/05/18 08:11 Elvia Yi M.D. Jul 05, 2018 12:11
--- NOTE | 2018-07-05 14:45 | NUR ---
NURSE NOTES: Patient discharged home as ordered. Patient is awake and oriented x4. Patient is stable, denies pain. Thorough discharge instructions given to patient and family member, both verbalized understanding. Patient does not have any belongings. No IV access. Skin is clean, dry, and intact. Patient's surgical site is clean, dry, no s/s infection. Patient understands that she must follow up with primary doctor. Patient assisted into private vehicle by RN without incident.
--- NOTE | 2018-07-05 14:49 | Pulmonology Progress Note ---
Assessment/Plan Problems: (1) Gastric ulcer (2) Perforated abdominal viscus (3) Bowel perforation (4) ATN (acute tubular necrosis) (5) Peritonitis Assessment/Plan wbc still high antifungal was added getting better iv fluids advance diet iv abx check cultrues check electrolytes dc home Subjective ROS Limited/Unobtainable: No Constitutional: Reports: no symptoms HEENT: Repors: no symptoms Respiratory: Reports: no symptoms Allergies: Coded Allergies: No Known Allergies (Unverified , 01/11/13) Objective Last 24 Hour Vital Signs Date Time Temp Pulse Resp B/P (MAP) Pulse Ox O2 Delivery O2 Flow Rate FiO2 07/05/18 09:00 Room Air Room Air 07/05/18 04:00 97.8 77 18 147/88 (107) 07/05/18 00:00 98.0 88 18 127/71 (89) 07/04/18 21:00 Room Air Room Air 07/04/18 20:00 99.0 82 18 143/73 (96) 07/04/18 16:00 99.3 94 18 129/76 (93) 97 Intake and Output 07/04/18 07/05/18 18:59 06:59 Intake Total 640 ml 400 ml Output Total 801 ml Balance -161 ml 400 ml Intake Oral 640 ml Other 400 ml Output Urine Total 800 ml Stool Total 1 ml # Voids 1 General Appearance: WD/WN, no acute distress HEENT: normocephalic Respiratory/Chest: chest wall non-tender, lungs clear Breasts: no masses Cardiovascular: normal peripheral pulses Abdomen: normal bowel sounds, soft, non tender Genitourinary: normal external genitalia Skin: no rash 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 normal Microbiology Date/Time Source Procedure Growth Status 07/04/18 11:00 Stool Clostridium difficile Toxin Assay - Final Complete Laboratory Tests 07/05/18 05:35: White Blood Count 12.6H, Red Blood Count 3.44L, Hemoglobin 8.0L, Hematocrit 25.7L, Mean Corpuscular Volume 75L, Mean Corpuscular Hemoglobin 23.3L, Mean Corpuscular Hemoglobin Concent 31.2L, Red Cell Distribution Width 20.0H, Platelet Count 696H, Mean Platelet Volume 5.8L, Neutrophils (%) (Auto) 69.9, Lymphocytes (%) (Auto) 20.6, Monocytes (%) (Auto) 6.0, Eosinophils (%) (Auto) 2.6, Basophils (%) (Auto) 0.9, Erythrocyte Sedimentation Rate 97H, Sodium Level 141, Potassium Level 3.4L, Chloride Level 106, Carbon Dioxide Level 23, Anion Gap 12, Blood Urea Nitrogen 2L, Creatinine 0.5L, Estimat Glomerular Filtration Rate > 60, Glucose Level 85, Calcium Level 8.3L, Phosphorus Level 5.0H, Magnesium Level 1.0L, Total Bilirubin 0.2, Aspartate Amino Transf (AST/SGOT) 19 , Alanine Aminotransferase (ALT/SGPT) 23, Alkaline Phosphatase 73, C-Reactive Protein, Quantitative 6.6H, Total Protein 6.7, Albumin 2.0L, Globulin 4.7, Albumin/Globulin Ratio 0.4L Current Medications Medications (Trade) Dose Ordered Sig/Marisol Route PRN Reason Start Time Stop Time Status Last Admin Dose Admin Acetaminophen/ Hydrocodone Bitart ([place] 5/325) 1 tab Q4H PRN ORAL Moderate Pain (Pain Scale 4-6) 07/04/18 15:26 07/11/18 15:25 07/05/18 08:12 Guaifenesin (Robitussin) 200 mg Q4H PRN ORAL For Cough 07/05/18 06:30 08/04/18 06:29 Heparin Sodium (Porcine) (Heparin 5000 units/ml) 5,000 units EVERY 12 HOURS SUBQ 06/29/18 21:00 07/28/18 08:59 07/05/18 08:15 Hydralazine HCl (Apresoline) 50 mg Q6HR PRN ORAL For High Blood Pressure 07/03/18 22:45 08/02/18 22:44 Lorazepam (Ativan 2mg/ml 1ml) 1 mg Q4H PRN IV Agitation 07/01/18 19:00 07/08/18 18:59 07/01/18 20:41 Nitroglycerin (Ntg) 0.4 mg Q5M X 3 DOSES PRN SL Prn Chest Pain 06/29/18 14:45 07/27/18 19:29 Ondansetron HCl (Zofran) 4 mg Q6H PRN IVP Nausea & Vomiting 06/29/18 15:00 07/28/18 14:59 06/30/18 19:58 Pantoprazole (Protonix) 40 mg EVERY 12 HOURS ORAL 07/04/18 21:00 08/03/18 20:59 07/05/18 08:11 Allie Cabrera MD Jul 05, 2018 14:49
--- NOTE | 2018-07-08 08:24 | Discharge Summary ---
Discharge Summary Discharge Summary _ Discharge summary DATE OF ADMISSION: 06/27/2018 DATE OF DISCHARGE: 07/05/2018 DISCHARGED BY: Dr. Pelletier REASON FOR ADMISSION: 47 years old female with past medical history of peptic ulcer disease, chronic inflammatory demyelinating polyneuropathy, chronic inflammatory neuropathy, on prednisone, presented to emergency department with complaint of severe abdominal pain. Patient has a history of GI bleeding in the past. Her symptoms got progressively worse and upon evaluation in the point of presentation in ED she reported pain 10 out of 10 on a scale 1-10, sharp, nonradiating. She denied fever and chills. She denied loss of consciousness. She denied bright red blood per rectum. Upon evaluation patient was tachycardic tachypneic and hypotensive. Laboratory workup revealed no leukocytosis stable hemoglobin hematocrit. BUN and creatinine elevated. EKG revealed sinus tachycardia tachycardia no acute ischemic changes. CT of the abdomen and pelvis revealed pneumoperitoneum, concerning for bowel perforation. Location of perforation was uncertain but suspected duodenal or gastric antral ulcer. Mild small bowel dilatation. Suspecting representing ileus related to the above. Although the possibility of distal small bowel obstruction should be considered. Free intraperitoneal fluid. Distal esophageal wall thickening raising concern for esophagitis. Patient started on the IV fluids provided with analgesia general surgeon was consulted. Patient was subsequently taken for surgery and after surgery admitted for further CONSULTANTS: pulmonary Dr. Cabrera ID specialist Dr. Rodrigez GI specialist Dr. Cedeño surgery Dr. Grady [facility] COURSE: Patient undergone exploratory laparotomy with repair of gastric perforation with Román patch and partial omentectomy due to perforated prepyloric gastric ulcer. Patient received preoperative antibiotic prior to surgery. Course of recovery was uneventful. Patient provided with antibiotic as per ID specialist recommendations. Pain management was addressed. Supportive care provided. Patient noted to be with leukocytosis and intermittent fevers. Upper GI series revealed no evidence of obstruction or leak Chest x-ray revealed cardiomegaly and bilateral pleural effusion. Patient was taught how to use incentive spirometry and was encouraged to do it every hour x10. Urine culture revealed mixed gram-positive organisms. Abdominal fluid revealed E. coli ESBL, Alice , lactobacillus and Bacteroides. Stool for C. difficile was negative. Antibiotic regimen provided as per ID recommendations. Patient was on ertapenem and micafungin, given isolation of Alice glabrata. GI specialist closely followed. Patient initially kept n.p.o. and then started on clear liquid diet with slow advancement as tolerated. Patient was continued on IV fluids. GI prophylaxis with PPI started. Hemoglobin and hematocrit were closely monitored with goal to keep hemoglobin above 7., Hemoglobin and hematocrit stabilized, no need for transfusion. Renal parameters and electrolytes were closely monitored. Electrolytes corrected as needed. Nephrotoxins were avoided. Prior to discharge creatinine from 3.3 down to 0.5. Acute kidney injury was likely precipitated by hypotension and perforated viscus. Supplemental oxygen provided as needed to keep pulse oximetry above 92%. Patient required Ventimask. Supplemental oxygen titrated to keep pulse oximetry above 92%. Pulmonary toilet was on standby as needed. Use of incentive spirometry was encouraged. Respiratory status stabilized. Prior to discharge pulse oximetry was stable on room air. Leukocytosis trending down, fevers resolved. ID specialist cleared patient for discharge. Pain was controlled. Wound clean. Patient was able to tolerate diet. Patient clinically stabilized and was ready for discharge . Follow-up with a surgeon as outpatient on 07/10/2018 at 11 AM. FINAL DIAGNOSES: Perforated prepyloric gastric ulcer/perforated viscus Status post exploratory laparotomy, repair of gastric perforation with Román patch, partial omentectomy Peritonitis Acute kidney injury /Acute tubular necrosis-resolved Acute anemia, most likely secondary to acute blood loss Severe dehydration History of chronic inflammatory demyelinating polyneuropathy Acute respiratory distress requiring Ventimask -resolved DISCHARGE MEDICATIONS: See Medication Reconciliation list. DISCHARGE INSTRUCTIONS: Patient was discharged home . Follow up with primary care provider in one week. I have been assigned to dictate discharge summary for this account. I was not involved in the patient's management. Radha Matthew NP Jul 08, 2018 08:24
== END 2018-07-05 14:45 | disposition home or self-care (01) | DRG 223 ==
LOC: EMR 15:45 → EDBEDREQ 15:53 → EMR 20:35 → SUR 20:35 → ICU 22:30 → UNDOADMIN 06-28 06:20 → 3E 06-29 14:35
PROC: 0DU907Z Supplement Duodenum with Autologous Tissue Substitute, Open Approach (ICD-10-PCS; principal; 2018-06-27 20:30)
PROC: 0DBU0ZZ Excision of Omentum, Open Approach (ICD-10-PCS; principal; 2018-06-27 20:30)
DX: K25.2 Acute gastric ulcer with both hemorrhage and perforation (principal); N17.0 Acute kidney failure with tubular necrosis; K65.8 Other peritonitis; I95.9 Hypotension, unspecified; D62 Acute posthemorrhagic anemia; G61.81 Chronic inflammatory demyelinating polyneuritis; E86.0 Dehydration; R06.03 Acute respiratory distress; K56.7 Ileus, unspecified; G40.909 Epilepsy, unspecified, not intractable, without status epilepticus; R00.0 Tachycardia, unspecified
CPT/HCPCS: 36415; 71045; 74176; 74247; 80048; 80053; 81003; 82150; 82962; 83690; 83735; 84100; 84703; 85007; 85025; 85610; 85651; 85730; 86140; 86850; 86900; 86901; 87070; 87075; 87086; 87181; 87205; 87324; 93005; 94003; 94150; 94664; 94760; 96361; 96365; 96375; 99285; J2250; J2405

== ENCOUNTER 2019-06-02 12:36 | Emergency (ER) | payer OTHER ==
[~2019-06-02] VITALS: Ht 160 cm; Wt 58.5 kg
--- NOTE | 2019-06-02 12:49 | NUR ---
ED Nurse Note: Pt walked into ED w/ L groin pain for 2 weeks. Pt can't recall specific injury to site. Pt gait is limpin on L side. Pt states pain L groin is 10/10. No swelling, erythema to site. Pt is alert and orientedx4, ambulatory. Daughter is present. PA has seen patient.
[2019-06-02 12:50] VITALS: BP 114/76
[2019-06-02] MEDS ORDERED: Ketorolac 30mg Inj IV ONE (13:00)
[2019-06-02] MEDS ORDERED: Omnipaque-300 100ml vial INJ PRN (13:00)
--- NOTE | 2019-06-02 13:16 | Emergency Room Report ---
History of Present Illness General Chief Complaint: Pain Source: Patient Present Illness HPI 48-year-old female with history of CIDP currently controlled with prednisone on daily basis as well as monthly injection of steroids here complaining of 2 weeks of left-sided groin pain with radiation into thigh and lower back. Denies any fall or injury. Denies history of hernia. No obvious hernia noted, no signs of incarceration noted. Denies generalized abdominal pain, nausea vomiting. Other than her daily dose of prednisone has not taken medication for symptom relief. Patient is a heavy tobacco smoker, also drinks 1 beer every day. Also smokes marijuana. Rates the pain 10 out of 10 with radiation to the inner thigh and lower back. Denies vaginal discharge, urinary frequency and urgency. Denies tingling and numbness at this time. Has not taken any medication for symptom relief. Denies fever and chill Allergies: Coded Allergies: No Known Allergies (Unverified , 01/11/13) Patient History Past Medical History: see triage record Past Surgical History: unable to obtain Pertinent Family History: none Social History: Reports: smoking - daily tobacco smoke, alcohol use - daily alcohol intake, drug use - marijuana Last Menstrual Period: 2016 Now: No Immunizations: UTD Reviewed Nursing Documentation: PMH: Agreed; PSxH: Agreed Nursing Documentation-PMH Past Medical History: No History, Except For Hx Cardiac Problems: Yes - SINUS TACHYCARDIA Hx Cancer: No Hx Gastrointestinal Problems: Yes - ESOPHAGEAL VARICES Hx Neurological Problems: No Hx Seizures: Yes Hx Speech Problem: Yes - SLURRED SPEECH Review of Systems All Other Systems: negative except mentioned in HPI Physical Exam Vital Signs Date Time Temp Pulse Resp B/P (MAP) Pulse Ox O2 Delivery O2 Flow Rate FiO2 06/02/19 12:40 97.3 108 19 142/79 (100) 99 Room Air Sp02 EP Interpretation: reviewed, normal General Appearance: no apparent distress, alert, GCS 15, non-toxic Head: normocephalic, atraumatic Eyes: bilateral eye normal inspection, bilateral eye PERRL ENT: hearing grossly normal, normal pharynx, no angioedema, normal voice Neck: full range of motion, supple, thyroid normal, supple/symm/no masses Respiratory: chest non-tender, lungs clear, normal breath sounds, no rhonchi, no retraction, no wheezing, speaking full sentences Cardiovascular #1: regular rate, rhythm, no edema, no murmur, normal capillary refill Cardiovascular #2: 2+ femoral (R), 2+ femoral (L), 2+ dorsalis pedis (R), 2+ dorsalis pedis (L) Gastrointestinal: normal bowel sounds, non tender, soft, no mass, no organomegaly, no peritonitis, no bruit, non-distended, no guarding, no pulsatile mass, no rebound, guarding - suprapubic on left Rectal: deferred Genitourinary: no CVA tenderness Musculoskeletal: back normal, no calf tenderness, pelvis stable, gait/station normal, Colt's Sign negative Neurologic: alert, motor strength/tone normal, oriented x3, sensory intact, responsive, speech normal Psychiatric: judgement/insight normal, memory normal, mood/affect normal, no suicidal/homicidal ideation Skin: no rash Lymphatic: no adenopathy Medical Decision Making PA Attestation All diagnoses and treatment plans were reviewed and discussed with my supervising physician Dr. Madrigal Diagnostic Impression: Primary Impression: Pelvic pain Additional Impression: Enteritis ER Course 48-year-old female with history of CIDP currently controlled with prednisone on daily basis as well as monthly injection of steroids here complaining of 2 weeks of left-sided groin pain with radiation into thigh and lower back. Denies any fall or injury. Denies history of hernia. No obvious hernia noted, no signs of incarceration noted. Denies generalized abdominal pain, nausea vomiting. Other than her daily dose of prednisone has not taken medication for symptom relief. Patient is a heavy tobacco smoker, also drinks 1 beer every day. Also smokes marijuana. Rates the pain 10 out of 10 with radiation to the inner thigh and lower back. Denies vaginal discharge, urinary frequency and urgency. Denies tingling and numbness at this time. Has not taken any medication for symptom relief. Denies fever and chill Ddx considered but are not limited to: appendicitis, cholecystis, gastritis, gastroenteritis, UTI, pyelonephritis, SBO, diverticulitis, incarcerated hernia, reducible hernia, nonreducible hernia Vital signs: are WNL, pt. is afebrile H&PE are most consistent with: Pelvic pain possible muscle strain, enteritis ORDERS: abdominal CT, CBC, CMP, UA, lipase, PT and PTT, Motrin, prednisone, Robaxin ED INTERVENTIONS: NS bolus, Toradol DISCHARGE: At this time pt. is stable for d/c to home. Will provide printed patient care instructions, and any necessary prescriptions. Care plan and follow up instructions have been discussed with the patient prior to discharge. Patient to follow-up primary care doctor, possible pelvic ultrasound, if worsening symptoms return to the emergency room. At this time no acute causes noted. CT/MRI/US Diagnostic Results CT/MRI/US Diagnostic Results : Imaging Test Ordered: CT abdomen pelvis with contrast Impression Enteritis noted, otherwise within normal limits Last Vital Signs Date Time Temp Pulse Resp B/P (MAP) Pulse Ox O2 Delivery O2 Flow Rate FiO2 06/02/19 12:50 97.3 86 20 114/76 99 Room Air Status: improved Disposition: HOME, SELF-CARE Condition: Stable Scripts Ibuprofen* (MOTRIN*) 600 Mg Tablet 600 MG ORAL Q8H PRN for For Pain, #30 TAB 0 Refills Prov: Larry Macedo 06/02/19 Methocarbamol* (ROBAXIN-500*) 500 Mg Tablet 500 MG ORAL TID PRN for For Pain, #15 TAB 0 Refills Prov: Larry Macedo 06/02/19 Referrals: NON PHYSICIAN (PCP) Patient Instructions: Pelvic Pain, Female, [id number] Additional Instructions: Follow-up with your primary care provider, take medication as directed, if worsening symptoms return to the emergency room Larry Macedo Jun 02, 2019 13:16
[2019-06-02 13:25] LABS: HEMATOCRIT 29.8 % (37.0-47.0); HEMOGLOBIN 10.2 G/DL (12.0-16.0); MEAN CORPUSCULAR VOLUME 81 FL (80-99); PLATELET COUNT 76 K/UL (150-450); RED CELL DISTRIBUTION WIDTH 14.8 % (11.6-14.8); WHITE BLOOD COUNT 8.2 K/UL (4.8-10.8)
[2019-06-02 13:34] LABS: ANION GAP 12 mmol/L (5-15); APPEARANCE,URINE CLEAR; BILIRUBIN, URINE NEGATIVE (NEGATIVE); BLOOD UREA NITROGEN 13 mg/dL (7-18); CALCIUM 9.3 MG/DL (8.5-10.1); CARBON DIOXIDE 23 MMOL/L (21-32); CHLORIDE 105 MMOL/L (98-107); COLOR,URINE PALE YELLOW; CREATININE 0.6 MG/DL (0.55-1.30); GLUCOSE, URINE (UA) NEGATIVE (NEGATIVE); KETONES,URINE NEGATIVE (NEGATIVE); LEUKOCYTE ESTERASE ,URINE NEGATIVE (NEGATIVE); NITRITE,URINE NEGATIVE (NEGATIVE); PH,URINE 5 (4.5-8.0); POTASSIUM 5.1 MMOL/L (3.5-5.1); PROTEIN,URINE NEGATIVE (NEGATIVE); SODIUM 140 MMOL/L (136-145); UROBILINOGEN,URINE NORMAL MG/DL (0.0-1.0)
[2019-06-02 13:38] LABS: ALANINE AMINOTRANSFERASE 46 U/L (12-78); ALBUMIN 3.7 G/DL (3.4-5.0); ALBUMIN/GLOBULIN RATIO 0.9 (1.0-2.7); ALKALINE PHOSPHATASE 138 U/L (46-116); ASPARTATE AMINO TRANSFERASE 61 U/L (15-37); BILIRUBIN,TOTAL 0.3 MG/DL (0.2-1.0)
--- NOTE | 2019-06-02 15:02 | Diagnostic Imaging Report ---
Clinical Indication: Left-sided lower abdominal pain Technique: No oral contrast utilized, per emergency room physician request IV administration nonionic contrast. Venous phase spiral acquisition obtained through the abdomen and pelvis. Multiplanar reconstructions were generated. Total dose length product 200 mGycm. CTDIvol(s) 4 mGy. Dose reduction achieved using automated exposure control Comparison: 04/23/2018 no acute abnormality otherwise contrast study, 06/27/2018 noncontrast exam Findings: Lack of enteric contrast limits assessment of the GI tract. The appendix is normal. No evidence of colonic diverticulosis or diverticulitis. Prominent left upper quadrant proximal jejunal loops are noted, some with equivocal wall thickening. No free or loculated intraperitoneal gas or fluid is evident. The distal esophagus, stomach, duodenum are unremarkable. When compared to the previous exam, previously demonstrated pneumoperitoneum is not evident. The liver, gallbladder, bile ducts, pancreas, spleen, adrenals, right kidney are unremarkable. Left kidney demonstrates a subcentimeter upper pole low-attenuation lesion which is unchanged, too small to characterize. No retroperitoneal or mesenteric mass or adenopathy. No pelvic mass or adenopathy. Uterus and ovaries are unremarkable. Included lung bases demonstrate scarring or atelectasis in the inferior lingula, significantly decreased from the previous June 2018 exam. Minimal scarring or atelectasis is seen in the bilateral lower lobes and in the visualized right middle lobe. The bones are unremarkable. Impression: Limited assessment of the GI tract, due to lack of enteric contrast administration Equivocally prominent and thick walled left upper quadrant proximal jejunal loops, if real could indicate mild enteritis changes No other acute abnormality Incidental findings as noted, including basilar atelectasis and/or scarring, probable left renal cyst The CT scanner at [facility] is accredited by the [employer] and the scans are performed using protocols designed to limit radiation exposure to as low as reasonably achievable to attain images of sufficient resolution adequate for diagnostic evaluation.
[2019-06-02] MEDS ORDERED: ROBAXIN-500MG ORAL (15:22)
[2019-06-02] MEDS ORDERED: IBUPROFEN600 MG ORAL (15:22)
[2019-06-02 15:30] VITALS: BP 114/76
--- NOTE | 2019-06-02 15:31 | NUR ---
ED Nurse Note: Pt cleared by health care Provider for discharge. DC instructions/prescription was given and explained to pt and verbalized understanding of teachings. All medical deviecs such as ID band removed. Pt is AAO x4, ambulatory and left with all personal belongings.
== END 2019-06-02 15:32 | disposition home or self-care (01) ==
LOC: EMR 12:45
DX: R10.2 Pelvic and perineal pain (principal); K52.9 Noninfective gastroenteritis and colitis, unspecified; F17.200 Nicotine dependence, unspecified, uncomplicated; F12.90 Cannabis use, unspecified, uncomplicated
CPT/HCPCS: 36415; 74177; 80053; 81003; 83690; 85007; 85025; 85610; 85730; 96360; J7030; Q9967; Z7502; 99284